=== PATIENT | female | born 1965 | race Caucasian/White ===

== ENCOUNTER 2024-06-30 18:35 | Inpatient (IN) ==
[~2024-06-30 18:35] MED LIST: MAGNESIUM SULFATE / D5W 1 GM/100 ML BAG IV SCH
--- NOTE | 2024-06-30 19:23 | Emergency Department Note ---
Impression & Plan Hypoxia, CHF (congestive heart failure), Rhinovirus infection, Pulmonary fibrosis, Wheezing, Pedal edema, Hypomagnesemia ED Provider Note NAME: SUJATA PINTO AGE: 58 SEX: F : 1965 ARRIVES VIA: Walk-In INFORMANT: [Patient] ED PROVIDER(S): [Eran Landis MD] CHIEF COMPLAINT: Chest pain, short of breath HISTORY OF PRESENT ILLNESS: The patient is a 58-year-old female with pulmonary fibrosis. She states that she was admitted to [facility] in early May. Really since discharge, she has noticed increasing dyspnea but in the last few days, she has been quite short of breath especially with any exertion. She does wear 3 L of oxygen at all times. The patient states that she has noticed some left-sided chest pain which seems to come and go. The pain is not exertional, it is not pleuritic. It is there sometimes, sometimes not. The patient has in addition noted some increasing pedal edema, this has been increasing for about a month. Because of the dyspnea, her chest pain, the edema, she presents for evaluation. The patient has not had any fever. There have been no sick contacts. She does have a nebulizer machine at home but she states, she is not sure it is working properly. PMHx/PSHx/Social Hx: See Below PHYSICAL EXAM: GENERAL: Patient is in no acute distress. HEENT: No acute trauma, normocephalic atraumatic, mucous membranes moist, no nasal congestion. NECK: No stridor, no adenopathy, no meningismus, trachea is midline. LUNGS: Wheezing bilaterally with diminished breath sounds bilaterally. No respiratory distress. Chest: Tender to the left anterior mid chest wall just beneath the breast. HEART: Without murmurs gallops or rubs, regular rate and rhythm. ABDOMEN: Soft, nontender, no peritonitis. EXTREMITIES: No cyanosis, full range of motion of all the joints without pain or difficulty. Mild bilateral pedal edema. NEUROLOGIC: Oriented x 3, no acute motor or sensory deficits, no focal weakness. SKIN: No jaundice, no diaphoresis. DIFFERENTIAL DIAGNOSIS: Exacerbation of COPD, CHF, pneumonia, viral illness, bronchitis, renal or liver failure, AL, PE, among others. EMERGENCY DEPARTMENT PROCEDURES: MEDICAL DECISION MAKING: There is no leukocytosis or concerning anemia. There is a normal platelet count. INR is somewhat elevated at 1.3. VBG shows a very subtle acidosis and some mild CO2 retention. No renal failure. Magnesium was low at 1.6. No concerning liver enzyme elevation. ECG shows a normal sinus rhythm, no obvious ischemia. Cardiac enzyme testing is slightly elevated, this elevation could be secondary to mismatch or potentially cardiac injury. Chest x-ray shows what appears to be some pulmonary congestion and CHF. BNP was elevated at over 1800, consistent with fluid overload. Respiratory bio fire was positive for rhinovirus. Chest CT did not show PE. Chronic lung findings were noted. Pneumonia or fluid overload was suspected. On exam, the patient was wheezing and was hypoxic despite O2 supplementation. The patient was eventually placed on BiPAP to help her breathing. She was given IV magnesium, IV Solu-Medrol, IV Zofran. She was given IV Lasix and 2 DuoNebs. Patient has diagnosed lung disease. Now, she appears to be fluid overloaded. She has rhinovirus. The fluid, the viral infection, has flared her lung disease and she has become hypoxic and short of breath. She requires a hospital stay. I spoke with the patient and case management rn. The on-call hospitalist was consulted. Of note, patient does appear improved after the treatment provided here in the ED. She understands the need for a hospital stay. Prior/Outside records/notes reviewed: None ECG per my interpretation: Indication was chest pain and dyspnea. The ECG shows a normal sinus rhythm with a rate of 85. There is no acute ST elevation, no PVCs. The QTc is 447. Continuous Cardiac Monitoring per my interpretation: An order was placed for continuous cardiac monitoring. The monitor shows a rate of 89 with normal sinus rhythm. Imaging/x-ray results per my interpretation: Chest x-ray shows potential pulmonary fibrosis versus some pulmonary fluid/congestion. There is atelectasis/potential infiltrate both lower lobes. No old films to use for comparison. Chronic Medical/Social conditions affecting care: Chronic O2 use, history of pulmonary fibrosis. Recent hospitalization. Care/Management discussed with: Case management, the on-call hospitalist. Level of care consideration(s): After review of the information above and other included data: --I believe the patient requires escalation of care to admission Critical Care Note: I have personally spent 54 minutes of critical care time in the direct management of this patient. This includes bedside care, interpretation of diagnostic studies, and testing, discussion with consultants, patient, and family members, and other required patient management activities. This 54 minutes is in excess of all separately billable procedures. DISPOSITION: Admission Past Med/Surg History Problem List (Updated 06/30/24 @ 22:34 by Eran Landis MD) Hypomagnesemia (Acute) Pedal edema (Acute) Wheezing (Acute) Pulmonary fibrosis (Acute) Rhinovirus infection (Acute) CHF (congestive heart failure) (Acute) Hypoxia (Acute) Medical History Pulmonary fibrosis Social History Smoking Status: Former smoker Preferred Language: [place] Feels Safe at Home: Yes Results & Data (ED) Vital Signs Vital Signs - 24 hr 06/30/24 18:35 06/30/24 18:35 06/30/24 18:48 Temperature 35.1 C L Temperature Source Oral Pulse Rate 92 H Pulse Rate [Apical] Respiratory Rate 22 Respiratory Effort / Characteristics Spontaneous Spontaneous Respiratory Depth Normal Normal Respiratory Pattern Regular Blood Pressure 150/91 H Blood Pressure [Right Arm] Blood Pressure Mean 110 Blood Pressure Mean [Right Arm] Pulse Oximetry 86 L 86 L Oxygen Delivery Method Nasal Cannula Room Air Nasal Cannula Nasal Cannula Oxygen Flow Rate 3 3 3 Fraction of Inspired Oxygen Sepsis Recent Fever Within 48 Hours No Sepsis New/Unexplained Change in Mental Status N/A Sepsis Action Taken by Nursing Physician Notified Oxygen Flow Rate - Titration 5 Pulse Oximetry Post Tiitration 89 L 06/30/24 18:55 06/30/24 19:00 06/30/24 19:01 Temperature Temperature Source Pulse Rate 89 Pulse Rate [Apical] 83 Respiratory Rate 18 Respiratory Effort / Characteristics Non-Labored Spontaneous Respiratory Depth Normal Respiratory Pattern Regular Blood Pressure Blood Pressure [Right Arm] 143/103 H Blood Pressure Mean Blood Pressure Mean [Right Arm] 116 Pulse Oximetry 89 L 90 Oxygen Delivery Method Nasal Cannula Nasal Cannula Oxygen Flow Rate 5 5 Fraction of Inspired Oxygen Sepsis Recent Fever Within 48 Hours Sepsis New/Unexplained Change in Mental Status Sepsis Action Taken by Nursing Oxygen Flow Rate - Titration Pulse Oximetry Post Tiitration 06/30/24 21:00 06/30/24 21:24 06/30/24 21:33 Temperature Temperature Source Pulse Rate 86 Pulse Rate [Apical] 88 90 Respiratory Rate 20 22 18 Respiratory Effort / Characteristics Spontaneous Non-Labored Non-Labored Spontaneous Respiratory Depth Normal Normal Respiratory Pattern Regular Regular Blood Pressure Blood Pressure [Right Arm] 157/99 H Blood Pressure Mean Blood Pressure Mean [Right Arm] 118 Pulse Oximetry 86 L 85 L 95 Oxygen Delivery Method Nasal Cannula Nasal Cannula Oxygen Flow Rate 5 5 Fraction of Inspired Oxygen 50 Sepsis Recent Fever Within 48 Hours Sepsis New/Unexplained Change in Mental Status Sepsis Action Taken by Nursing Oxygen Flow Rate - Titration Pulse Oximetry Post Tiitration 06/30/24 21:41 Temperature Temperature Source Pulse Rate Pulse Rate [Apical] Respiratory Rate Respiratory Effort / Characteristics Respiratory Depth Respiratory Pattern Blood Pressure Blood Pressure [Right Arm] Blood Pressure Mean Blood Pressure Mean [Right Arm] Pulse Oximetry 86 L Oxygen Delivery Method BiPAP Oxygen Flow Rate 5 Fraction of Inspired Oxygen Sepsis Recent Fever Within 48 Hours Sepsis New/Unexplained Change in Mental Status Sepsis Action Taken by Nursing Oxygen Flow Rate - Titration Pulse Oximetry Post Tiitration 96 Home Medications Current Medication List: was personally reviewed by me Laboratory Data Attestation: I reviewed the patient's lab results. 06/30/24 18:55 06/30/24 18:55 Lab Results 06/30/24 06/30/24 06/30/24 Range/Units 18:55 18:56 19:17 WBC 6.74 (4.8-10.8) K/ul RBC 4.76 (4.20-5.40) M/uL Hgb 14.5 (12.0-16.0) g/dl Hct 44.0 (37.0-47.0) % MCV 92.4 (80.0-100.0) fL MCH 30.5 (25.0-34.0) pg MCHC 33.0 (32.0-36.0) g/dL RDW Std Deviation 57.6 H (36.4-46.3) fL RDW Coeff of Reji 17.0 H (11.5-14.5) % Plt Count 146 (130-400) K/uL MPV 11.2 (9.4-12.4) fL Immature Gran % (Auto) 0.1 % Neut % (Auto) 66.3 % Lymph % (Auto) 23.3 % Davidson % (Auto) 8.6 % Eos % (Auto) 1.3 % Baso % (Auto) 0.4 % Neut # (Auto) 4.46 (1.40-6.50) K/uL Lymph # (Auto) 1.57 (1.20-3.40) K/uL Davidson # (Auto) 0.58 (0.11-0.59) K/uL Eos # (Auto) 0.09 (0.00-0.50) K/uL Baso # (Auto) 0.03 (0.00-0.20) K/uL Immature Gran # (Auto) 0.01 (0.01-0.20) K/uL PT 13.4 H (9.0-12.0) Seconds INR 1.3 H (0.9-1.1) APTT 26 (21-31) Seconds PTT Ratio 1.0 VBG pH (7.36-7.41) VBG pCO2 (38-50) mmHg VBG pO2 mmHg VBG HCO3 mmol/L VBG O2 Saturation % VBG Base Excess mEq/L Sodium 134 L (136-145) mmol/L Potassium 3.6 (3.5-5.1) mmol/L Chloride 97 L (98-107) mmol/L Carbon Dioxide 29 (21-32) mmol/L Anion Gap 8 (3-11) BUN 12 (6-23) mg/dl Creatinine 0.96 (0.6-1.2) mg/dl Est Cr Clr Drug Dosing Not Reportable eGFR 68.58 BUN/Creatinine Ratio 12.5 (10-20) Glucose 124 H (70-99(Fasting)) mg/dl Calcium 9.3 (8.6-10.3) mg/dl Magnesium 1.6 L (1.7-2.4) mg/dl Total Bilirubin 1.0 (0.2-1.0) mg/dl AST 26 (13-39) U/L ALT 11 (7-52) U/L Alkaline Phosphatase 47 (34-104) U/L Troponin I High Sens 20.6 H (0-14) pg/ml B-Natriuretic Peptide 1866 H (0-100) pg/ml Total Protein 7.0 (6.0-8.3) gm/dl Albumin 4.1 (3.4-5.0) gm/dl Globulin 2.9 (2.5-4.0) gm/dl Albumin/Globulin Ratio 1.4 (0.9-2) Adenovirus (PCR) Not Detected (NotDetected) B. pertussis DNA (PCR) Not Detected (NotDetected) B.parapertussis DNA PCR Not Detected (NotDetected) C. pneumoniae DNA (PCR) Not Detected (NotDetected) Coronavirus OC43 (PCR) Not Detected (NotDetected) Coronavirus HKU1 (PCR) Not Detected (NotDetected) Coronavirus 229E (PCR) Not Detected (NotDetected) SARS-CoV-2 (PCR) Not Detected (NotDetected) Coronavirus NL63 (PCR) Not Detected (NotDetected) Human Metapneumovir PCR Not Detected (NotDetected) Influenza Type A (PCR) Not Detected (NotDetected) Influenza Type B (PCR) Not Detected (NotDetected) M. pneumoniae (PCR) Not Detected (NotDetected) Parainfluenza 1 (PCR) Not Detected (NotDetected) Parainfluenza 2 (PCR) Not Detected (NotDetected) Parainfluenza 3 (PCR) Not Detected (NotDetected) Parainfluenza 4 (PCR) Not Detected (NotDetected) RSV (PCR) Not Detected (NotDetected) Entero/Rhino (PCR) DETECTED A (NotDetected) 06/30/24 06/30/24 Range/Units 19:26 21:25 WBC (4.8-10.8) K/ul RBC (4.20-5.40) M/uL Hgb (12.0-16.0) g/dl Hct (37.0-47.0) % MCV (80.0-100.0) fL MCH (25.0-34.0) pg MCHC (32.0-36.0) g/dL RDW Std Deviation (36.4-46.3) fL RDW Coeff of Reji (11.5-14.5) % Plt Count (130-400) K/uL MPV (9.4-12.4) fL Immature Gran % (Auto) % Neut % (Auto) % Lymph % (Auto) % Davidson % (Auto) % Eos % (Auto) % Baso % (Auto) % Neut # (Auto) (1.40-6.50) K/uL Lymph # (Auto) (1.20-3.40) K/uL Davidson # (Auto) (0.11-0.59) K/uL Eos # (Auto) (0.00-0.50) K/uL Baso # (Auto) (0.00-0.20) K/uL Immature Gran # (Auto) (0.01-0.20) K/uL PT (9.0-12.0) Seconds INR (0.9-1.1) APTT (21-31) Seconds PTT Ratio VBG pH 7.31 L (7.36-7.41) VBG pCO2 58 H (38-50) mmHg VBG pO2 27 mmHg VBG HCO3 29 mmol/L VBG O2 Saturation < 60.0 % VBG Base Excess 1.6 mEq/L Sodium (136-145) mmol/L Potassium (3.5-5.1) mmol/L Chloride (98-107) mmol/L Carbon Dioxide (21-32) mmol/L Anion Gap (3-11) BUN (6-23) mg/dl Creatinine (0.6-1.2) mg/dl Est Cr Clr Drug Dosing eGFR BUN/Creatinine Ratio (10-20) Glucose (70-99(Fasting)) mg/dl Calcium (8.6-10.3) mg/dl Magnesium (1.7-2.4) mg/dl Total Bilirubin (0.2-1.0) mg/dl AST (13-39) U/L ALT (7-52) U/L Alkaline Phosphatase (34-104) U/L Troponin I High Sens 18.4 H (0-14) pg/ml B-Natriuretic Peptide (0-100) pg/ml Total Protein (6.0-8.3) gm/dl Albumin (3.4-5.0) gm/dl Globulin (2.5-4.0) gm/dl Albumin/Globulin Ratio (0.9-2) Adenovirus (PCR) (NotDetected) B. pertussis DNA (PCR) (NotDetected) B.parapertussis DNA PCR (NotDetected) C. pneumoniae DNA (PCR) (NotDetected) Coronavirus OC43 (PCR) (NotDetected) Coronavirus HKU1 (PCR) (NotDetected) Coronavirus 229E (PCR) (NotDetected) SARS-CoV-2 (PCR) (NotDetected) Coronavirus NL63 (PCR) (NotDetected) Human Metapneumovir PCR (NotDetected) Influenza Type A (PCR) (NotDetected) Influenza Type B (PCR) (NotDetected) M. pneumoniae (PCR) (NotDetected) Parainfluenza 1 (PCR) (NotDetected) Parainfluenza 2 (PCR) (NotDetected) Parainfluenza 3 (PCR) (NotDetected) Parainfluenza 4 (PCR) (NotDetected) RSV (PCR) (NotDetected) Entero/Rhino (PCR) (NotDetected) Administered Medications Discontinued Medications Albuterol (Albut/Ipratrop 3mg/0.5mg Neb 3 Ml Vial) 3 ml NEB NOW STA; Protocol Stop: 06/30/24 19:13 Last Admin: 06/30/24 19:34 Dose: 3 ml Documented By: GENEVIEVE Albuterol (Albut/Ipratrop 3mg/0.5mg Neb 3 Ml Vial) 3 ml NEB NOW STA; Protocol Stop: 06/30/24 21:22 Last Admin: 06/30/24 21:22 Dose: 3 ml Documented By: [id number] Furosemide (Furosemide 40 Mg/4 Ml Vial) 40 mg IV ONE ONE Stop: 06/30/24 20:38 Last Admin: 06/30/24 21:08 Dose: 40 mg Documented By: GENEVIEVE Magnesium Sulfate/Dextrose (Magnesium Sulfate / D5w) 1 gm in 100 mls @ 100 mls/hr IV NOW STA Stop: 06/30/24 21:03 Last Infusion: 06/30/24 21:11 Dose: Infused Documented By: Admin: 06/30/24 20:11 Dose: 100 mls/hr Documented By: GENEVIEVE Ioversol (Optiray 320 125ml) 119 ml IV ONCE ONE Stop: 06/30/24 20:19 Last Admin: 06/30/24 20:18 Dose: 119 ml Documented By: KINSEY Methylprednisolone (Methylprednisolone 125 Mg/2 Ml Vial) 60 mg IV NOW STA Stop: 06/30/24 19:13 Last Admin: 06/30/24 19:33 Dose: 60 mg Documented By: GENEVIEVE Ondansetron HCl (Ondansetron Inj 2 Mg/Ml 2 Ml Vial) 4 mg IV NOW STA Stop: 06/30/24 19:47 Last Admin: 06/30/24 19:48 Dose: 4 mg Documented By: GENEVIEVE Imaging Data Radiologist's Impression: Chest CTA 06/30/24 20:08 Exam(s): CTA CHEST IV Amt: optiray 320 119ml EXAM: CT Angiography Chest With Intravenous Contrast CLINICAL HISTORY: PE. TECHNIQUE: Axial computed tomographic angiography images of the chest with intravenous contrast. MIPS images were created and reviewed. CTDI is 22 mGy and DLP is 735 mGy-cm. Automated exposure control was utilized for the study. A dose lowering technique was utilized adhering to the principles of ALARA. MIP reconstructed images were created and reviewed. COMPARISON: No relevant prior studies available. FINDINGS: Pulmonary arteries: There is dilation of the pulmonary arteries. The main pulmonary artery measures 4.0 cm. No pulmonary embolus. Aorta: Mild atherosclerosis. No thoracic aortic aneurysm. Hepatic veins: Reflux of contrast into the hepatic veins is concerning for right heart failure. Lungs: Emphysema is noted. Interseptal thickening and bronchiectasis is concerning for interstitial lung disease. No mass. No consolidation. Pleural space: Unremarkable. No significant effusion. No pneumothorax. Heart: Coronary artery calcifications are present. Bones/joints: There are degenerative changes of the spine. No acute fracture. Soft tissues: Unremarkable. Lymph nodes: Hilar lymphadenopathy measures up to 1.4 cm in short axis. Gallbladder and bile ducts: Question pericholecystic fluid. IMPRESSION: 1. No pulmonary embolus. 2. Emphysema is noted. Emphysema is an independent risk factor for lung cancer. Recommend evaluation for low dose lung cancer screening protocol. 3. Interseptal thickening and bronchiectasis is concerning for interstitial lung disease. Cannot exclude superimposed pulmonary edema or atypical infection especially of the right upper lobe. 4. There is dilation of the pulmonary arteries. This is concerning for pulmonary artery hypertension. 5. Hilar lymphadenopathy measures up to 1.4 cm in short axis. This could be infectious, inflammatory or neoplastic. 6. Reflux of contrast into the hepatic veins is concerning for right heart failure. 7. Question pericholecystic fluid. Consider further evaluation with gallbladder ultrasound. Electronically signed by: Abigail Juares MD 06/30/24 21:14 PM Discharge Plan Visit Data Chief Complaint: Chest Pain Stated Complaint: CHEST PAIN, SOB, LEG SWELLING,VOMITING ED Provider: Eran Landis Discharge Problem: Hypoxia, CHF (congestive heart failure), Rhinovirus infection, Pulmonary fibrosis, Wheezing, Pedal edema, Hypomagnesemia Patient Disposition: Admitted As Inpatient Condition: Serious Forms Stand Alone Forms: [facility] Referrals Referrals: Lavon Waldron MD [Outside Practitioners] - Discharge Problem: CHF (congestive heart failure) Qualifiers: Heart failure type: unspecified Heart failure chronicity: acute Qualified Code(s): I50.9 - Heart failure, unspecified
[2024-06-30] MEDS: methylPREDNISolone 125 MG/2 ML VIAL IV STA (19:33)
[2024-06-30] MEDS: ALBUT/IPRATROP 3MG/0.5MG NEB 3 ML VIAL NEB STA ×2 (19:34→21:22)
[2024-06-30 19:36] LABS: Base Excess VBG 1.6 mEq/L; HCO3 VBG 29 mmol/L; Oxygen Saturation VBG < 60.0 %; PCO2 VBG 58 mmHg (38-50); PO2 VBG 27 mmHg; pH VBG 7.31 (7.36-7.41)
[2024-06-30] MEDS: ONDANSETRON INJ 2 MG/ML 2 ML VIAL IV STA (19:48)
[2024-06-30 19:54] LABS: Basophils # (auto) 0.03 K/uL (0.00-0.20); Basophils % (auto) 0.4 %; Eosinophils # (auto) 0.09 K/uL (0.00-0.50); Eosinophils % (auto) 1.3 %; Hemoglobin 14.5 g/dl (12.0-16.0); Immature Granulocytes # (auto) 0.01 K/uL (0.01-0.20); Immature Granulocytes % (auto) 0.1 %; Lymphocytes # (auto) 1.57 K/uL (1.20-3.40); Lymphocytes % (auto) 23.3 %; Mean Corpuscular Hemoglobin 30.5 pg (25.0-34.0); Mean Corpuscular Volume 92.4 fL (80.0-100.0); Mean Platelet Volume 11.2 fL (9.4-12.4); Monocytes # (auto) 0.58 K/uL (0.11-0.59); Monocytes % (auto) 8.6 %; Neutrophils # (auto) 4.46 K/uL (1.40-6.50); Neutrophils % (auto) 66.3 %; Platelet Count 146 K/uL (130-400); RDW Standard Deviation 57.6 fL (36.4-46.3); Red Blood Count 4.76 M/uL (4.20-5.40); White Blood Count 6.74 K/ul (4.8-10.8)
[2024-06-30 20:01] LABS: Alanine Aminotransferase 11 U/L (7-52); Albumin Globulin Ratio 1.4 (0.9-2); Albumin Level 4.1 gm/dl (3.4-5.0); Alkaline Phosphatase 47 U/L (34-104); Anion Gap 8 (3-11); Aspartate Aminotransferase 26 U/L (13-39); BUN Creatinine Ratio 12.5 (10-20); Blood Urea Nitrogen 12 mg/dl (6-23); Calcium 9.3 mg/dl (8.6-10.3); Carbon Dioxide 29 mmol/L (21-32); Chloride 97 mmol/L (98-107); Globulin 2.9 gm/dl (2.5-4.0); Glucose 124 mg/dl (70-99(Fasting)); Magnesium 1.6 mg/dl (1.7-2.4); Potassium 3.6 mmol/L (3.5-5.1); Sodium 134 mmol/L (136-145)
[2024-06-30 20:07] LABS: Troponin I High Sensitivity 20.6 pg/ml (0-14)
[2024-06-30 20:10] LABS: INR 1.3 (0.9-1.1); Partial Thromboplastin Time 26 Seconds (21-31); Prothrombin Time 13.4 Seconds (9.0-12.0)
[2024-06-30] MEDS: MAGNESIUM SULFATE / D5W 1 GM/100 ML BAG IV STA (20:11)
[2024-06-30] MEDS: OPTIRAY 320 125ml IV ONE (20:18)
[2024-06-30 20:34] LABS: Adenovirus PCR Not Detected (NotDetected); Bordetella parapertussis PCR Not Detected (NotDetected); Bordetella pertussis PCR Not Detected (NotDetected); Chlamydia pneumoniae PCR Not Detected (NotDetected); Coronavirus 229E PCR Not Detected (NotDetected); Coronavirus CoV-2 (COVID19)PCR Not Detected (NotDetected); Coronavirus HKU1 PCR Not Detected (NotDetected); Coronavirus NL63 PCR Not Detected (NotDetected); Coronavirus OC43PCR Not Detected (NotDetected); Human Metapneumovirus PCR Not Detected (NotDetected); Influenza A PCR Not Detected (NotDetected); Influenza B PCR Not Detected (NotDetected); Mycoplasma pneumoniae PCR Not Detected (NotDetected); Parainfluenza Virus 1 PCR Not Detected (NotDetected); Parainfluenza Virus 2 PCR Not Detected (NotDetected); Parainfluenza Virus 3 PCR Not Detected (NotDetected); Parainfluenza Virus 4 PCR Not Detected (NotDetected); Respiratory Syncytial VirusPCR Not Detected (NotDetected); Rhinovirus/Enterovirus PCR DETECTED (NotDetected)
[2024-06-30] MEDS: FUROSEMIDE 40 MG/4 ML VIAL IV ONE (21:08)
--- NOTE | 2024-06-30 21:16 | CT Scan Report ---
Exam(s): CTA CHEST IV Amt: optiray 320 119ml EXAM: CT Angiography Chest With Intravenous Contrast CLINICAL HISTORY: PE. TECHNIQUE: Axial computed tomographic angiography images of the chest with intravenous contrast. MIPS images were created and reviewed. CTDI is 22 mGy and DLP is 735 mGy-cm. Automated exposure control was utilized for the study. A dose lowering technique was utilized adhering to the principles of ALARA. MIP reconstructed images were created and reviewed. COMPARISON: No relevant prior studies available. FINDINGS: Pulmonary arteries: There is dilation of the pulmonary arteries. The main pulmonary artery measures 4.0 cm. No pulmonary embolus. Aorta: Mild atherosclerosis. No thoracic aortic aneurysm. Hepatic veins: Reflux of contrast into the hepatic veins is concerning for right heart failure. Lungs: Emphysema is noted. Interseptal thickening and bronchiectasis is concerning for interstitial lung disease. No mass. No consolidation. Pleural space: Unremarkable. No significant effusion. No pneumothorax. Heart: Coronary artery calcifications are present. Bones/joints: There are degenerative changes of the spine. No acute fracture. Soft tissues: Unremarkable. Lymph nodes: Hilar lymphadenopathy measures up to 1.4 cm in short axis. Gallbladder and bile ducts: Question pericholecystic fluid. IMPRESSION: 1. No pulmonary embolus. 2. Emphysema is noted. Emphysema is an independent risk factor for lung cancer. Recommend evaluation for low dose lung cancer screening protocol. 3. Interseptal thickening and bronchiectasis is concerning for interstitial lung disease. Cannot exclude superimposed pulmonary edema or atypical infection especially of the right upper lobe. 4. There is dilation of the pulmonary arteries. This is concerning for pulmonary artery hypertension. 5. Hilar lymphadenopathy measures up to 1.4 cm in short axis. This could be infectious, inflammatory or neoplastic. 6. Reflux of contrast into the hepatic veins is concerning for right heart failure. 7. Question pericholecystic fluid. Consider further evaluation with gallbladder ultrasound. Electronically signed by: Abigail Juares MD 06/30/24 21:14 PM
--- NOTE | 2024-06-30 22:19 | History & Physical Report ---
Date of Service June 30, 2024 Assessment & Plan (1) Acute respiratory failure with hypoxia: (2) Hypomagnesemia: (3) Pulmonary fibrosis: (4) Rhinovirus infection: (5) COPD exacerbation: (6) CHF (congestive heart failure): Plan The patient is a 58-year-old female with a past medical history including hypertension, peripheral neuropathy, CHF, rheumatoid arthritis, COPD, pulmonary fibrosis, GERD, obstructive sleep apnea, muscle spasm, and anxiety. She was hospitalized in May in [facility], due to pulmonary issues. She reports that over the past several days she has had worsening shortness of breath, lower extremity edema, increased need for oxygen and presents to the ED at [facility] for assessment. #Acute respiratory failure with hypoxia- Combination of COPD exacerbation, rhinovirus infection and CHF exacerbation Patient initially on nasal cannula oxygen, required change to BiPAP for improved oxygenation #COPD exacerbation/rhinovirus infection/pulmonary fibrosis- Was given methylprednisolone 60 mg IV from the ED, continue methylprednisolone 40 mg IV every 8 hours Azithromycin 500 mg IV daily Mucinex 60 mg p.o. every 12 hours Duonebs every 4 hours while awake and every 2 hours when necessary. Continue [facility] consult to Dr. Avalos #CHF exacerbation- The patient will be admitted to telemetry for serial cardiac enzymes, serial EKG's, cardiac rhythm monitoring and a 2-D echocardiogram with Dopplers. Given furosemide 40 mg IV in the ED Continue furosemide 40 mg IV twice daily #Chronic medical issues: Rheumatoid arthritis- On Enbrel as an outpatient, ibuprofen, modafinil #Chronic pain- Previously had been on narcotic medications Continue Suboxone 3 times daily, methocarbamol, gabapentin Request for patient records to [facility] has been sent History of Present Illness Chief Complaint: Patient presents to the emergency department with complaint of shortness of breath over the past several weeks, requiring hospitalization at [facility] in early May, and now feels that she is worsening over the past several days. Primary Care Provider: Narciso Castaneda DO The patient is a 58-year-old female with a past medical history including hypertension, peripheral neuropathy, CHF, rheumatoid arthritis, COPD, pulmonary fibrosis, GERD, obstructive sleep apnea, muscle spasm, and anxiety. She was hospitalized in May in [facility], due to pulmonary issues. She reports that over the past several days she has had worsening shortness of breath, lower extremity edema, increased need for oxygen and presents to the ED at [facility] for assessment. Allergies Allergy/AdvReac Type Severity Reaction Status Date / Time No Known Allergies Allergy Unverified 07/01/24 01:38 Home Medications Medication Instructions Recorded Confirmed Type alendronate 70 mg tablet 70 mg PO WK 06/30/24 06/30/24 History buspirone 7.5 mg tablet 7.5 mg PO BID 06/30/24 06/30/24 History ergocalciferol (vitamin D2) 1,250 1,250 unit PO DAILY 06/30/24 06/30/24 History mcg (50,000 unit) capsule etanercept 50 mg/mL (1 mL) 50 mg subcut WK 06/30/24 06/30/24 History subcutaneous pen injector (Enbrel SureClick) fluticasone fur. 100 mcg-umeclid 1 inh inhalation DAILY 06/30/24 06/30/24 History 62.5 mcg-vilant 25 mcg inhalat.powder (Trelegy Ellipta) ibuprofen 800 mg tablet 800 mg PO Q8H PRN Pain 06/30/24 06/30/24 History ipratropium 0.5 mg-albuterol 3 mg 3 ml inhalation Q4H PRN breath 06/30/24 06/30/24 History (2.5 mg base)/3 mL nebulization soln leflunomide 20 mg tablet 20 mg PO DAILY 06/30/24 06/30/24 History lidocaine-prilocaine 2.5 %-2.5 % 1 applic topical BID 06/30/24 06/30/24 History topical cream losartan 25 mg tablet 25 mg PO DAILY 06/30/24 06/30/24 History methocarbamol 750 mg tablet 750 mg PO TID 06/30/24 06/30/24 History modafinil 200 mg tablet 200 mg PO QAM 06/30/24 06/30/24 History nicotine 14 mg/24 hr daily 1 patch transdermal DAILY 06/30/24 06/30/24 History transdermal patch nintedanib 150 mg capsule (Ofev) 150 mg PO BID 06/30/24 06/30/24 History omeprazole 40 mg capsule,delayed 40 mg PO DAILY 06/30/24 06/30/24 History release sennosides 8.6 mg-docusate sodium 2 tab PO DAILY PRN therapy 06/30/24 06/30/24 History 50 mg tablet (Senexon-S) silver sulfadiazine 1 % topical 1 applic topical DAILY 06/30/24 06/30/24 History cream Past Med/Surg History Problem List (Updated 07/01/24 @ 05:13 by Jimmy Shah MD) COPD exacerbation Acute respiratory failure with hypoxia Hypomagnesemia (Acute) Pedal edema (Acute) Wheezing (Acute) Pulmonary fibrosis (Acute) Rhinovirus infection (Acute) CHF (congestive heart failure) (Acute) Hypoxia (Acute) Medical History Pulmonary fibrosis Social History Smoking Status: Never smoker Second Hand Exposure: No; Do You Dip or Chew Tobacco: No; Hx Alcohol Use: No Hx Substance Use: No Preferred Language: Hong Konger Communication Ability: Effective 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 Beliefs That Will Affect Care: None Current Living Situation: Alone Other Information That Helps Us Care for You: No Feels Safe at Home: Yes Safety Concerns: Feels Safe At This Time Assistive Devices: CPAP Review of Systems Review of Systems: The patient denies chest pain, palpitations, sore throat, fevers, chills, sweats, weight change, fatigue, nausea, vomiting, diarrhea , constipation, abdominal pain, pelvic pain, blood in urine or stool, dysuria, urinary frequency or urgency, lightheadedness, dizziness, headache, memory loss, loss of consciousness, rash, abnormal bruising or bleeding, imbalance, focal weakness, numbness or tingling in arms or legs, generalized arthralgias or myalgias, back or neck pain, or night sweats. The review of systems is otherwise negative other than for that already noted above, and at least 10 systems have been reviewed. Physical Exam Physical Exam: The patient is awake, alert and oriented 3, well developed and well nourished, normocephalic and atraumatic, lying in bed and in no acute distress. HEENT--PERRL, EOMI, mucous membranes and oropharynx Neck--supple. No JVD. No bruits. Thyroid normal, trachea midline, no adenopathy. Heart--normal S1 and S2. No murmurs, rubs or gallops. Lungs--crackles at the bases, with coarse breath sounds bilaterally. No respiratory distress, no accessory muscle use. Abdomen--normal bowel sounds and soft. Nontender. Nondistended, no hernias or masses, no organomegaly. Extremities--no cyanosis or clubbing. 2+ bilateral pretibial pitting edema. There are good distal pulses b/l. Dermatologic--normal skin turgor, normal color, no abnormal lymph nodes, no rash. Neurologic--cranial nerves II through XII grossly intact. Rheumatologic--normal range of motion. Psychiatric--normal affect. Results & Data Results & Data Vital Signs (Past 12 Hours) Vital Signs Temp Pulse Pulse Resp BP BP Pulse Ox 06/30/24 21:41 86 L 06/30/24 21:33 86 18 95 06/30/24 21:24 90 22 85 L 06/30/24 21:00 88 20 157/99 H 86 L 06/30/24 19:01 89 06/30/24 19:00 83 18 143/103 H 90 06/30/24 18:55 89 L 06/30/24 18:48 35.1 C L 92 H 22 150/91 H 86 L 06/30/24 18:35 86 L 06/30/24 18:35 O2 Del Method O2 Flow Rate FiO2 06/30/24 21:41 BiPAP 5 06/30/24 21:33 50 06/30/24 21:24 Nasal Cannula 5 06/30/24 21:00 Nasal Cannula 5 06/30/24 19:01 06/30/24 19:00 Nasal Cannula 5 06/30/24 18:55 Nasal Cannula 5 06/30/24 18:48 Nasal Cannula 3 06/30/24 18:35 Room Air, Nasal Cannula 3 06/30/24 18:35 Nasal Cannula 3 Laboratory Results Laboratory Results WBC 6.74 K/ul (4.8-10.8) 06/30/24 18:55 RBC 4.76 M/uL (4.20-5.40) 06/30/24 18:55 Hgb 14.5 g/dl (12.0-16.0) 06/30/24 18:55 Hct 44.0 % (37.0-47.0) 06/30/24 18:55 MCV 92.4 fL (80.0-100.0) 06/30/24 18:55 MCH 30.5 pg (25.0-34.0) 06/30/24 18:55 MCHC 33.0 g/dL (32.0-36.0) 06/30/24 18:55 RDW Std Deviation 57.6 fL (36.4-46.3) H 06/30/24 18:55 RDW Coeff of Reji 17.0 % (11.5-14.5) H 06/30/24 18:55 Plt Count 146 K/uL (130-400) 06/30/24 18:55 MPV 11.2 fL (9.4-12.4) 06/30/24 18:55 Immature Gran % (Auto) 0.1 % 06/30/24 18:55 Neut % (Auto) 66.3 % 06/30/24 18:55 Lymph % (Auto) 23.3 % 06/30/24 18:55 Coal % (Auto) 8.6 % 06/30/24 18:55 Eos % (Auto) 1.3 % 06/30/24 18:55 Baso % (Auto) 0.4 % 06/30/24 18:55 Neut # (Auto) 4.46 K/uL (1.40-6.50) 06/30/24 18:55 Lymph # (Auto) 1.57 K/uL (1.20-3.40) 06/30/24 18:55 Coal # (Auto) 0.58 K/uL (0.11-0.59) 06/30/24 18:55 Eos # (Auto) 0.09 K/uL (0.00-0.50) 06/30/24 18:55 Baso # (Auto) 0.03 K/uL (0.00-0.20) 06/30/24 18:55 Immature Gran # (Auto) 0.01 K/uL (0.01-0.20) 06/30/24 18:55 PT 13.4 Seconds (9.0-12.0) H 06/30/24 18:56 INR 1.3 (0.9-1.1) H 06/30/24 18:56 APTT 26 Seconds (21-31) 06/30/24 18:56 PTT Ratio 1.0 06/30/24 18:56 VBG pH 7.31 (7.36-7.41) L 06/30/24 19:26 VBG pCO2 58 mmHg (38-50) H 06/30/24 19:26 VBG pO2 27 mmHg 06/30/24 19: VBG HCO3 29 mmol/L 06/30/24 19: VBG O2 Saturation < 60.0 % 06/30/24 19: VBG Base Excess 1.6 mEq/L 06/30/24 19:26 Sodium 134 mmol/L (136-145) L 06/30/24 18:55 Potassium 3.6 mmol/L (3.5-5.1) 06/30/24 18:55 Chloride 97 mmol/L (98-107) L 06/30/24 18:55 Carbon Dioxide 29 mmol/L (21-32) 06/30/24 18:55 Anion Gap 8 (3-11) 06/30/24 18:55 BUN 12 mg/dl (6-23) 06/30/24 18:55 Creatinine 0.96 mg/dl (0.6-1.2) 06/30/24 18:55 Est Cr Clr Drug Dosing Not Reportable 06/30/24 18:55 eGFR 68.58 06/30/24 18:55 BUN/Creatinine Ratio 12.5 (10-20) 06/30/24 18:55 Glucose 124 mg/dl (70-99(Fasting)) H 06/30/24 18:55 Calcium 9.3 mg/dl (8.6-10.3) 06/30/24 18:55 Magnesium 1.6 mg/dl (1.7-2.4) L 06/30/24 18:55 Total Bilirubin 1.0 mg/dl (0.2-1.0) 06/30/24 18:55 AST 26 U/L (13-39) 06/30/24 18:55 ALT 11 U/L (7-52) 06/30/24 18:55 Alkaline Phosphatase 47 U/L (34-104) 06/30/24 18:55 Troponin I High Sens 18.4 pg/ml (0-14) H 06/30/24 21:25 B-Natriuretic Peptide 1866 pg/ml (0-100) H 06/30/24 18:55 Total Protein 7.0 gm/dl (6.0-8.3) 06/30/24 18:55 Albumin 4.1 gm/dl (3.4-5.0) 06/30/24 18:55 Globulin 2.9 gm/dl (2.5-4.0) 06/30/24 18:55 Albumin/Globulin Ratio 1.4 (0.9-2) 06/30/24 18:55 Urine Color Yellow 06/30/24 23:49 Urine Appearance Clear (Clear) 06/30/24 23:49 Urine pH 5.0 (4.5-7.5) 06/30/24 23:49 Ur Specific [place] 1.011 (1.000-1.030) 06/30/24 23:49 Urine Protein Negative (Negative) 06/30/24 23:49 Urine Glucose (UA) Negative (Negative) 06/30/24 23:49 Urine Ketones Negative (Negative) 06/30/24 23:49 Urine Blood Negative (Negative) 06/30/24 23:49 Urine Nitrite Negative (Negative) 06/30/24 23:49 Urine Bilirubin Negative (Negative) 06/30/24 23:49 Urine Urobilinogen Negative (Negative) 06/30/24 23:49 Ur Leukocyte Esterase Negative (Negative) 06/30/24 23:49 Adenovirus (PCR) Not Detected (NotDetected) 06/30/24 19:17 B. pertussis DNA (PCR) Not Detected (NotDetected) 06/30/24 19:17 B.parapertussis DNA PCR Not Detected (NotDetected) 06/30/24 19:17 C. pneumoniae DNA (PCR) Not Detected (NotDetected) 06/30/24 19:17 Coronavirus OC43 (PCR) Not Detected (NotDetected) 06/30/24 19:17 Coronavirus HKU1 (PCR) Not Detected (NotDetected) 06/30/24 19:17 Coronavirus 229E (PCR) Not Detected (NotDetected) 06/30/24 19:17 SARS-CoV-2 (PCR) Not Detected (NotDetected) 06/30/24 19:17 Coronavirus NL63 (PCR) Not Detected (NotDetected) 06/30/24 19:17 Human Metapneumovir PCR Not Detected (NotDetected) 06/30/24 19:17 Influenza Type A (PCR) Not Detected (NotDetected) 06/30/24 19:17 Influenza Type B (PCR) Not Detected (NotDetected) 06/30/24 19:17 M. pneumoniae (PCR) Not Detected (NotDetected) 06/30/24 19:17 Parainfluenza 1 (PCR) Not Detected (NotDetected) 06/30/24 19:17 Parainfluenza 2 (PCR) Not Detected (NotDetected) 06/30/24 19:17 Parainfluenza 3 (PCR) Not Detected (NotDetected) 06/30/24 19:17 Parainfluenza 4 (PCR) Not Detected (NotDetected) 06/30/24 19:17 RSV (PCR) Not Detected (NotDetected) 06/30/24 19:17 Entero/Rhino (PCR) DETECTED (NotDetected) A 06/30/24 19:17 Impressions Chest X-Ray 06/30/24 18:55 Exam(s): XR CXR 1 VIEW EXAM: XR Chest, 1 View CLINICAL HISTORY: Dyspnea. TECHNIQUE: Frontal view of the chest. COMPARISON: No relevant prior studies available. FINDINGS: Lungs: Bilateral airspace opacities are present. Pleural space: Small bilateral pleural effusions. No pneumothorax. Heart: Upper limits of normal cardiac silhouette. Mediastinum: Unremarkable. Normal mediastinal contour. Bones/joints: There are degenerative changes of the spine. No acute fracture. IMPRESSION: 1. Bilateral airspace opacities may represent pulmonary edema and/or atypical infection. 2. Small bilateral pleural effusions. Electronically signed by: Abigail Juares MD 06/30/24 23:24 PM Venous Doppler Study 06/30/24 19:11 Exam(s): US VENOUS BILATERAL LOWER EXTREMITIES EXAM: US Duplex Bilateral Lower Extremities Veins CLINICAL HISTORY: Swelling. TECHNIQUE: Real-time duplex ultrasound scan of the bilateral lower extremity veins integrating B-mode two-dimensional vascular structure, Doppler spectral analysis, color flow Doppler imaging and compression. COMPARISON: No relevant prior studies available. FINDINGS: Right deep veins: Unremarkable. No Deep vein thrombosis in the right common femoral, femoral, proximal deep femoral or popliteal veins. The veins demonstrate normal color flow, are normally compressible, with normal phasic flow and/or augmentation response. Right superficial veins: Unremarkable. No thrombus in the visualized right great saphenous vein. Left deep veins: Unremarkable. No Deep vein thrombosis in the left common femoral, femoral, proximal deep femoral or popliteal veins. The veins demonstrate normal color flow, are normally compressible, with normal phasic flow and/or augmentation response. Left superficial veins: Unremarkable. No thrombus in the visualized left great saphenous vein. Soft tissues: No acute findings. No popliteal cyst. IMPRESSION: No deep vein thrombosis of either lower extremity. Electronically signed by: Abigail Juares MD 07/01/24 02:15 AM Chest CTA 06/30/24 20:08 Exam(s): CTA CHEST IV Amt: optiray [id number] 119ml EXAM: CT Angiography Chest With Intravenous Contrast CLINICAL HISTORY: PE. TECHNIQUE: Axial computed tomographic angiography images of the chest with intravenous contrast. MIPS images were created and reviewed. CTDI is 22 mGy and DLP is 735 mGy-cm. Automated exposure control was utilized for the study. A dose lowering technique was utilized adhering to the principles of ALARA. MIP reconstructed images were created and reviewed. COMPARISON: No relevant prior studies available. FINDINGS: Pulmonary arteries: There is dilation of the pulmonary arteries. The main pulmonary artery measures 4.0 cm. No pulmonary embolus. Aorta: Mild atherosclerosis. No thoracic aortic aneurysm. Hepatic veins: Reflux of contrast into the hepatic veins is concerning for right heart failure. Lungs: Emphysema is noted. Interseptal thickening and bronchiectasis is concerning for interstitial lung disease. No mass. No consolidation. Pleural space: Unremarkable. No significant effusion. No pneumothorax. Heart: Coronary artery calcifications are present. Bones/joints: There are degenerative changes of the spine. No acute fracture. Soft tissues: Unremarkable. Lymph nodes: Hilar lymphadenopathy measures up to 1.4 cm in short axis. Gallbladder and bile ducts: Question pericholecystic fluid. IMPRESSION: 1. No pulmonary embolus. 2. Emphysema is noted. Emphysema is an independent risk factor for lung cancer. Recommend evaluation for low dose lung cancer screening protocol. 3. Interseptal thickening and bronchiectasis is concerning for interstitial lung disease. Cannot exclude superimposed pulmonary edema or atypical infection especially of the right upper lobe. 4. There is dilation of the pulmonary arteries. This is concerning for pulmonary artery hypertension. 5. Hilar lymphadenopathy measures up to 1.4 cm in short axis. This could be infectious, inflammatory or neoplastic. 6. Reflux of contrast into the hepatic veins is concerning for right heart failure. 7. Question pericholecystic fluid. Consider further evaluation with gallbladder ultrasound. Electronically signed by: Abigail Juares MD 06/30/24 21:14 PM Code Status & VTE Plan Code Status Full code VTE Prophylaxis Plan VTE Prophylaxis will be ordered: Yes PG Care Time/CCT Total # of Minutes Spent Total Time Spent with Patient: Total time spent is greater than 50% in coordination of care (as documented) at patient's floor/unit and/or counseling patient: Coding Level of Care Code 19563 INT INP/OBS CARE 3/75MIN Diagnoses Acute respiratory failure with hypoxia J96.01 Hypomagnesemia E83.42 Pulmonary fibrosis J84.10 Rhinovirus infection B34.8 COPD exacerbation J44.1 CHF (congestive heart failure) I50.9 Heart failure chronicity: acute Heart failure type: unspecified (6) CHF (congestive heart failure) Heart failure chronicity: acute Heart failure type: unspecified Qualified Code(s): I50.9 - Heart failure, unspecified
[2024-06-30] MEDS: ALBUT/IPRATROP 3MG/0.5MG NEB 3 ML VIAL ONE (22:32)
--- NOTE | 2024-06-30 23:25 | XRay Report ---
Exam(s): XR CXR 1 VIEW EXAM: XR Chest, 1 View CLINICAL HISTORY: Dyspnea. TECHNIQUE: Frontal view of the chest. COMPARISON: No relevant prior studies available. FINDINGS: Lungs: Bilateral airspace opacities are present. Pleural space: Small bilateral pleural effusions. No pneumothorax. Heart: Upper limits of normal cardiac silhouette. Mediastinum: Unremarkable. Normal mediastinal contour. Bones/joints: There are degenerative changes of the spine. No acute fracture. IMPRESSION: 1. Bilateral airspace opacities may represent pulmonary edema and/or atypical infection. 2. Small bilateral pleural effusions. Electronically signed by: Abigail Juares MD 06/30/24 23:24 PM
[2024-07-01 00:21] LABS: Appearance Urine Clear (Clear); Bilirubin Urine Negative (Negative); Blood Urine Negative (Negative); Color Urine Yellow; Glucose Urine UA Negative (Negative); Ketones Urine Negative (Negative); Leukocyte Esterase Urine Negative (Negative); Nitrite Urine Negative (Negative); Protein Urine Negative (Negative); Specific Gravity Urine 1.011 (1.000-1.030); Urobilinogen Urine Negative (Negative)
[2024-07-01] MEDS: Patient's ALLERGY Info needs ENTERED STA (01:37)
--- NOTE | 2024-07-01 02:16 | Ultrasound Report ---
Exam(s): US VENOUS BILATERAL LOWER EXTREMITIES EXAM: US Duplex Bilateral Lower Extremities Veins CLINICAL HISTORY: Swelling. TECHNIQUE: Real-time duplex ultrasound scan of the bilateral lower extremity veins integrating B-mode two-dimensional vascular structure, Doppler spectral analysis, color flow Doppler imaging and compression. COMPARISON: No relevant prior studies available. FINDINGS: Right deep veins: Unremarkable. No Deep vein thrombosis in the right common femoral, femoral, proximal deep femoral or popliteal veins. The veins demonstrate normal color flow, are normally compressible, with normal phasic flow and/or augmentation response. Right superficial veins: Unremarkable. No thrombus in the visualized right great saphenous vein. Left deep veins: Unremarkable. No Deep vein thrombosis in the left common femoral, femoral, proximal deep femoral or popliteal veins. The veins demonstrate normal color flow, are normally compressible, with normal phasic flow and/or augmentation response. Left superficial veins: Unremarkable. No thrombus in the visualized left great saphenous vein. Soft tissues: No acute findings. No popliteal cyst. IMPRESSION: No deep vein thrombosis of either lower extremity. Electronically signed by: Abigail Juares MD 07/01/24 02:15 AM
[2024-07-01] MEDS: POTASSIUM CHLORIDE CRTAB 20 MEQ TABCR PO STA ×2 (02:19→02:36)
[2024-07-01] MEDS: ACETAMINOPHEN 325 MG TAB PO PRN (02:35)
[2024-07-01] MEDS: AZITHROMYCIN 500 MG in SODIUM CHLORIDE 0.9% 250 ML IV STA (02:37)
[2024-07-01] MEDS: MAGNESIUM SULFATE / D5W 1 GM/100 ML BAG IV SCH (02:37)
[2024-07-01] MEDS ORDERED: ALBUT/IPRATROP 3MG/0.5MG NEB 3 ML VIAL INH PRN (05:17)
[2024-07-01] MEDS ORDERED: methylPREDNISolone 10 mg/mL (For Ped Dose < 7mg) IV SCH (06:00)
[2024-07-01 06:43] LABS: Basophils # (auto) 0.01 K/uL (0.00-0.20); Basophils % (auto) 0.2 %; Hematocrit (blood only) 43.5 % (37.0-47.0); Hemoglobin 14.1 g/dl (12.0-16.0); Immature Granulocytes # (auto) 0.03 K/uL (0.01-0.20); Immature Granulocytes % (auto) 0.7 %; Lymphocytes # (auto) 0.88 K/uL (1.20-3.40); Lymphocytes % (auto) 19.3 %; Mean Corpuscular Hgb Conc 32.4 g/dL (32.0-36.0); Mean Corpuscular Volume 92.6 fL (80.0-100.0); Mean Platelet Volume 12.1 fL (9.4-12.4); Monocytes # (auto) 0.62 K/uL (0.11-0.59); Monocytes % (auto) 13.6 %; Neutrophils # (auto) 3.03 K/uL (1.40-6.50); Neutrophils % (auto) 66.2 %; Platelet Count 147 K/uL (130-400); RDW Coefficient of Variation 16.7 % (11.5-14.5); RDW Standard Deviation 56.6 fL (36.4-46.3); White Blood Count 4.57 K/ul (4.8-10.8)
[2024-07-01 07:00] LABS: Albumin Globulin Ratio 1.4 (0.9-2); Albumin Level 3.8 gm/dl (3.4-5.0); BUN Creatinine Ratio 16.8 (10-20); Bilirubin,Total 0.7 mg/dl (0.2-1.0); Calcium 8.8 mg/dl (8.6-10.3); Creatinine Clr Calc Pharmacy 59.1 ml/min; Globulin 2.7 gm/dl (2.5-4.0); Magnesium 2.1 mg/dl (1.7-2.4); Potassium 3.9 mmol/L (3.5-5.1); Total Protein 6.5 gm/dl (6.0-8.3)
[2024-07-01] MEDS: methylPREDNISolone 40 MG in SYRINGE 0 ML IV SCH ×2 (07:05→20:03)
[2024-07-01 07:07] LABS: Troponin I High Sensitivity 12.9 pg/ml (0-14)
[2024-07-01] MEDS: ALBUT/IPRATROP 3MG/0.5MG NEB 3 ML VIAL NEB SCH (07:22)
--- NOTE | 2024-07-01 08:26 | Cardiology Consultation ---
Date of Consultation July 01, 2024 Assessment & Plan (1) Acute respiratory failure with hypoxia: (2) Pulmonary fibrosis: (3) CHF (congestive heart failure): (4) Right heart failure due to pulmonary hypertension: (5) Chest pain: Plan 1. Respiratory failure: I believe this is primarily pulmonary in etiology, although there does appear to be a component of left heart failure. I suspect it is on the basis of volume overload due to dietary indiscretion. 2. Pulmonary fibrosis: This is probably the main pulmonary problem that she has and has caused longstanding dyspnea. 3. Congestive heart failure: She appears to have some degree of left heart failure which I believe is due to volume overload from excessive fluid intake (which she describes drinking fluid due to dry mouth). She does have right heart failure as well which is described below. Other than diuresis there is no treatment indicated for her left heart failure. 4. Right heart failure: She has decreased right ventricular function as well as an elevated right atrial size and right ventricular dilatation all consistent with right ventricular pressure overload, and she has pulmonary hypertension. I suspect that the right heart failure is a recent problem, possibly her pulmonary hypertension (which is most likely due to her lung disease) led to recent right ventricular dysfunction or she has been drinking enough fluid that she now has right and left heart failure. I would start with diuresis, she will probably have to live with some degree of a dry mouth and will need to be on a fluid restriction. 5. Chest discomfort: This is very atypical, I do not believe it is cardiac in nature. History of Present Illness Reason for Consultation: Possible CHF Attending Physician: Uziel Urias MD History of Present Illness This is a 58-year-old woman with a history of hypertension, neuropathy, rheumatoid arthritis and obstructive sleep apnea as well as pulmonary fibrosis, she was recently and [facility] although I do not have those records. She presents the emergency room June 30, 2024 with increasing dyspnea. She wears 3 L oxygen at all times. She also has intermittent left-sided chest discomfort. She had noticed increasing edema for the last month, this is evidently quite significant for her although she does have a long history of occasional edema in her feet but not to the extent that she has had it in her legs and she also describes having bloating in her belly and she even thinks she has it in her face at times. She does drink quite a bit of water, she tells me she has a dry mouth and she drinks a lot of fluids including soda and water. She does not have exertional chest discomfort to suggest angina but she does have left-sided chest pain which is under her left breast and is not exertional. This is sharp and intermittent and does not sound pleuritic either. Initial evaluation was notable for slight troponin elevation (18.4 on presentation, subsequent test 12.9) and her chest x-ray showed bilateral opacities suggestive of pulmonary congestion and she had a BNP of 1866. She did have a chest CTA performed on June 30, 2023 which demonstrated emphysema, interstitial lung disease and dilated pulmonary arteries. An echocardiogram today demonstrates moderate right ventricular dilatation with mild right ventricular dysfunction and mild right atrial dilatation. Right ventricular systolic pressure is elevated to 50 to 60 mmHg. Allergies Allergy/AdvReac Type Severity Reaction Status Date / Time No Known Allergies Allergy Unverified 07/01/24 01:38 Home Medications Medication Instructions Recorded Confirmed Type alendronate 70 mg tablet 70 mg PO WK 06/30/24 06/30/24 History buspirone 7.5 mg tablet 7.5 mg PO BID 06/30/24 06/30/24 History ergocalciferol (vitamin D2) 1,250 1,250 unit PO DAILY 06/30/24 06/30/24 History mcg (50,000 unit) capsule etanercept 50 mg/mL (1 mL) 50 mg subcut WK 06/30/24 06/30/24 History subcutaneous pen injector (Enbrel SureClick) fluticasone fur. 100 mcg-umeclid 1 inh inhalation DAILY 06/30/24 06/30/24 History 62.5 mcg-vilant 25 mcg inhalat.powder (Trelegy Ellipta) ibuprofen 800 mg tablet 800 mg PO Q8H PRN Pain 06/30/24 06/30/24 History ipratropium 0.5 mg-albuterol 3 mg 3 ml inhalation Q4H PRN breath 06/30/24 06/30/24 History (2.5 mg base)/3 mL nebulization soln leflunomide 20 mg tablet 20 mg PO DAILY 06/30/24 06/30/24 History lidocaine-prilocaine 2.5 %-2.5 % 1 applic topical BID 06/30/24 06/30/24 History topical cream losartan 25 mg tablet 25 mg PO DAILY 06/30/24 06/30/24 History methocarbamol 750 mg tablet 750 mg PO TID 06/30/24 06/30/24 History modafinil 200 mg tablet 200 mg PO QAM 06/30/24 06/30/24 History nicotine 14 mg/24 hr daily 1 patch transdermal DAILY 06/30/24 06/30/24 History transdermal patch nintedanib 150 mg capsule (Ofev) 150 mg PO BID 06/30/24 06/30/24 History omeprazole 40 mg capsule,delayed 40 mg PO DAILY 06/30/24 06/30/24 History release sennosides 8.6 mg-docusate sodium 2 tab PO DAILY PRN therapy 06/30/24 06/30/24 History 50 mg tablet (Senexon-S) silver sulfadiazine 1 % topical 1 applic topical DAILY 06/30/24 06/30/24 History cream Patient History Medical History Pulmonary fibrosis Social History Smoking Status: Never smoker Second Hand Exposure: No; Do You Dip or Chew Tobacco: No; Hx Alcohol Use: No Hx Substance Use: No Preferred Language: Indonesian Communication Ability: Effective 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 She is resting in bed. HEENT: Unremarkable Neck: No jugular venous distention, carotid pulses are normal and equal bilaterally without bruits. Pulmonary: Expiratory wheezing bilaterally, crackles throughout. Cardiac: Regular rhythm with no murmur, gallop or rub. Abdomen: Soft, nontender with normal bowel sounds. Extremities: +2 pitting pretibial edema on the left, +1 on the right. Neurologic: No focal findings. Skin: No rash, ecchymoses or petechiae. Results & Data Vital Signs (Past 12 Hours) Vital Signs Pulse Pulse Resp BP Pulse Ox Pulse Ox O2 Del Method 07/01/24 07:23 76 22 91 Nasal Cannula 07/01/24 07:08 79 16 131/85 91 Nasal Cannula 07/01/24 06:55 74 07/01/24 05:30 76 18 99 07/01/24 03:19 88 24 135/84 90 Nasal Cannula 07/01/24 02:51 Nasal Cannula 07/01/24 02:51 93 H 17 160/106 H 91 Nasal Cannula 07/01/24 01:23 92 07/01/24 00:28 93 H 07/01/24 00:00 99 Nasal Cannula, BiPAP 06/30/24 22:54 86 06/30/24 22:00 82 18 150/127 H 92 BiPAP 06/30/24 21:41 86 L BiPAP 06/30/24 21:33 86 18 95 06/30/24 21:24 90 22 85 L Nasal Cannula 06/30/24 21:00 88 20 157/99 H 86 L Nasal Cannula O2 Del Method O2 Flow Rate O2 Flow Rate FiO2 07/01/24 07:23 5 07/01/24 07:08 5 07/01/24 06:55 07/01/24 05:30 45 07/01/24 03:19 6 07/01/24 02:51 5 07/01/24 02:51 5 07/01/24 01:23 Nasal Cannula 5 07/01/24 00:28 07/01/24 00:00 50 06/30/24 22:54 06/30/24 22:00 06/30/24 21:41 5 06/30/24 21:33 50 06/30/24 21:24 5 06/30/24 21:00 5 Laboratory Results Cardiac Enzymes 06/30/24 06/30/24 07/01/24 Range/Units 18:55 21:25 06:15 AST 26 25 (13-39) U/L Troponin I High Sens 20.6 H 18.4 H 12.9 D (0-14) pg/ml B-Natriuretic Peptide 1866 H (0-100) pg/ml Coagulation 06/30/24 06/30/24 Range/Units 18:55 18:56 PT 13.4 H (9.0-12.0) Seconds APTT 26 (21-31) Seconds B-Natriuretic Peptide 1866 H (0-100) pg/ml CBC 06/30/24 07/01/24 Range/Units 18:55 06:15 WBC 6.74 4.57 L (4.8-10.8) K/ul RBC 4.76 4.70 (4.20-5.40) M/uL Hgb 14.5 14.1 (12.0-16.0) g/dl Hct 44.0 43.5 (37.0-47.0) % Plt Count 146 147 (130-400) K/uL Neut # (Auto) 4.46 3.03 (1.40-6.50) K/uL Lymph # (Auto) 1.57 0.88 L (1.20-3.40) K/uL [place] # (Auto) 0.58 0.62 H (0.11-0.59) K/uL Eos # (Auto) 0.09 0.00 (0.00-0.50) K/uL Baso # (Auto) 0.03 0.01 (0.00-0.20) K/uL Comprehensive Metabolic Panel 06/30/24 07/01/24 Range/Units 18:55 06:15 Sodium 134 L 136 (136-145) mmol/L Potassium 3.6 3.9 (3.5-5.1) mmol/L Chloride 97 L 99 (98-107) mmol/L Carbon Dioxide 29 30 (21-32) mmol/L BUN 12 16 (6-23) mg/dl Creatinine 0.96 0.95 (0.6-1.2) mg/dl Glucose 124 H 147 H (70-99(Fasting)) mg/dl Calcium 9.3 8.8 (8.6-10.3) mg/dl AST 26 25 (13-39) U/L ALT 11 10 (7-52) U/L Alkaline Phosphatase 47 50 (34-104) U/L Total Protein 7.0 6.5 (6.0-8.3) gm/dl Albumin 4.1 3.8 (3.4-5.0) gm/dl Intake and Output 06/30/24 07/01/24 07/01/24 22:59 06:59 14:59 Intake Total 100 / 515 415 / 515 Output Total 900 / 900 Balance 100 / -385 -485 / -385 Intake: IV 100 / 515 415 / 515 Azithromycin 500 mg In Sodium 255 / 255 Chloride 0.9% 250 ml @ 127.5 mls/hr IV NOW STA Rx#:[id number] Magnesium Sulfate / D5w 1 gm In 100 / 260 160 / 260 100 ml @ 50 mls/hr IV Q2H GEOVANNI Rx#:[id number] Oral 0 / 0 Output: Urine 900 / 900 Other: # Unmeasured Voids 1 Weight 73.2 kg Weight Measurement Method Built in [facility] Diagnostic Findings Telemetry: Sinus rhythm, no significant arrhythmia. Her presenting electrocardiogram shows sinus rhythm at 80 bpm, late transition which could be due to a right ventricular hypertrophy. Nonspecific atrial abnormality Probably due to right atrial enlargement. PG Care Time/CCT Total # of Minutes Spent Total Time Spent with Patient: Total time spent is greater than 50% in coordination of care (as documented) at patient's floor/unit and/or counseling patient: Coding Level of Care Code 11095 INT INP/OBS CARE 3/75MIN Diagnoses Acute respiratory failure with hypoxia J96.01 Pulmonary fibrosis J84.10 CHF (congestive heart failure) I50.9 Heart failure chronicity: acute Heart failure type: unspecified Right heart failure due to pulmonary hypertension I27.29; I50.810 Chest pain R07.9 (3) CHF (congestive heart failure) Heart failure chronicity: acute Heart failure type: unspecified Qualified Code(s): I50.9 - Heart failure, unspecified
[2024-07-01] MEDS: ASPIRIN 81 MG ECTAB PO SCH (08:38)
[2024-07-01] MEDS: PANTOprazole 40 MG TAB PO SCH (08:39)
[2024-07-01] MEDS: NICOTINE 14 MG/24 HR PATCH TD SCH (08:40)
[2024-07-01] MEDS: busPIRone 7.5 MG TAB PO SCH (08:40)
[2024-07-01] MEDS: LOSARTAN POTASSIUM 25 MG TAB PO SCH (08:40)
[2024-07-01] MEDS: CHOLECALCIFEROL 25 MCG (1000 UNITS) TAB PO SCH (08:40)
[2024-07-01] MEDS: METHOCARBAMOL 750 MG TABLET PO SCH (08:41)
[2024-07-01] MEDS: LEFLUNOMIDE 10 MG TAB PO SCH (08:41)
[2024-07-01] MEDS: HEPARIN SOD 5,000 UNIT/0.5 ML VIAL SQ SCH (08:42)
[2024-07-01] MEDS: FUROSEMIDE 40 MG/4 ML VIAL IV SCH (08:42)
[2024-07-01] MEDS: FLUTICASONE FUROATE 100MCG 14 PUFFS/INHALER INH SCH (08:42)
[2024-07-01] MEDS: modafiniL 100 MG TAB PO SCH (08:43)
[2024-07-01] MEDS: SILVER SULFADIAZINE 1% CR 50 GM JAR TOP SCH (08:44)
--- NOTE | 2024-07-01 08:46 | Hospitalist Progress Note ---
Date of Service July 01, 2024 Assessment & Plan (1) Acute respiratory failure with hypoxia: (2) Pulmonary fibrosis: (3) Rhinovirus infection: (4) COPD exacerbation: (5) CHF (congestive heart failure): (6) RUQ pain: Plan The patient is a 58-year-old female with a past medical history including hypertension, peripheral neuropathy, CHF, rheumatoid arthritis, COPD, pulmonary fibrosis, GERD, obstructive sleep apnea, muscle spasm, and anxiety. She was hospitalized in May in [facility], due to pulmonary issues. She reports that over the past several days she has had worsening shortness of breath, lower extremity edema, increased need for oxygen and presents to the ED at [facility] for assessment. #Acute respiratory failure with hypoxia- Combination of COPD exacerbation, rhinovirus infection and CHF exacerbation Bipap -> 5L NC on 3L NC at baseline; attempt to titrate O2 to baseline #COPD exacerbation/rhinovirus infection/pulmonary fibrosis- methylprednisolone 40 mg IV Q8H -> decrease to 40 IV BID as per pulm recommendations Azithromycin 500 mg IV daily added Mucinex 60 mg p.o. every 12 hours Duonebs every 4 hours while awake and every 2 hours when necessary Continue Trelegy Ellipta added incentive spirometry and flutter valve added isolation precautions Pulmonology consult to Dr. Avalos #CHF exacerbation- Echo ordered - normal systolic function, grade 1 diastolic dysfunction, EF 55 to 60% cardiology consulted BNP 1865 on admission troponin downtrended furosemide 40 mg IV twice daily -> decrease to 40 IV daily given -1.35L negative balance after one AM dose 1/5 electrolytes replete; continue to trend with IV diuresis strict I&O's change diet to heart healthy, Low Na added TEDs, promote leg elevation #pericholecystic fluid- Chest CTA showed questionable cholecystic fluid, consider further eval with gallbladder ultrasound bilirubin (0.7) and liver enzymes WNL patient endorses in intermittent sharp RUQ pain x 2-3 months; tender to palpation on exam stated she had normal EGD 2-3 months ago gallbladder US ordered - cholelithiasis, no acute cholecystitis can consider nuclear medicine hepatobiliary scan Noninfectious at this time, afebrile with no leukocytosis trend CMP Chronic medical issues: #Rheumatoid arthritis- On Enbrel as an outpatient, continue ibuprofen prn and modafinil #Chronic pain- Previously had been on narcotic medications Continue Suboxone TID and methocarbamol #VINOD- Cpap HS ordered Request for patient records to [facility] has been sent VTE ppx: Heparin Diet: heart healthy, low Na Dispo: continue inpatient PCU status, pending cardiology and pulm consults, continue IV steroids and IV Lasix 40 Mg twice daily, titrate O2 as tolerated to baseline 3L Admission and Anticipated Discharge Date Admission Date: June 30, 2024 Subjective Patient seen at bedside and doing well. Her shortness of breath is improving, mild dry cough improving. She stated that her lower extremity edema is mildly i mproved and she has been urinating frequently in large amounts. Discussed with nursing staff and has not been recording urine output; will start to record after discussion. Patient stated she uses incentive spirometry at home for pulmonary fibrosis; ordered. She has not had acute CHF exacerbations previously until the recent few months, may need long-term diuretic use. She does try to limit her salt intake at home. She also uses CPAP at night; ordered. Discussed Pericholecystic fluid found on chest CT, patient has been having intermittent right upper quadrant pain for the past few months, it is a sharp pain. She denies it occurring after eating. She did have 1 episode of vomiting prior to arrival to the ED, however also tested positive for rhinovirus. Denies hematemesis or vomiting bile. She stated she had an EGD 2 to 3 months ago that was normal. Patient denies current nausea, chest pain, muscle cramps. 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 To be evaluated by cardiology and pulmonology today. Goal is to titrate down to baseline O2 of 3 L and titrate down on steroids possibly 1/6. Patient's daughter is a nurse practitioner who used to work here at [facility]. She now is a urology nurse practitioner in [place]. Review of Systems Review of Systems: see HPI Physical Exam Physical Exam: The patient is awake, alert and oriented 3, well developed and well nourished, normocephalic and atraumatic, in no acute distress. Non-toxic appearing. HEENT- EOMI, mucous membranes moist. Hearing grossly intact. Heart-normal S1 and S2. No murmurs, rubs or gallops. Lungs-crackles bilaterally, no respiratory distress, no accessory muscle use. Abdomen-normal bowel sounds and soft. No ascites noted. Tender to deep palpation of RUQ. Extremities- no clubbing, cyanosis. +1 pitting edema BL LE. Rheumatologic-normal range of motion. Psychiatric-normal affect. Results & Data Results & Data Vital Signs (Past 12 Hours) Vital Signs Pulse Pulse Resp BP Pulse Ox Pulse Ox O2 Del Method 07/01/24 07:23 76 22 91 Nasal Cannula 07/01/24 07:08 79 16 131/85 91 Nasal Cannula 07/01/24 06:55 74 07/01/24 05:30 76 18 99 07/01/24 03:19 88 24 135/84 90 Nasal Cannula 07/01/24 02:51 Nasal Cannula 07/01/24 02:51 93 H 17 160/106 H 91 Nasal Cannula 07/01/24 01:23 92 07/01/24 00:28 93 H 07/01/24 00:00 99 Nasal Cannula, BiPAP 06/30/24 22:54 86 06/30/24 22:00 82 18 150/127 H 92 BiPAP 06/30/24 21:41 86 L BiPAP 06/30/24 21:33 86 18 95 06/30/24 21:24 90 22 85 L Nasal Cannula 06/30/24 21:00 88 20 157/99 H 86 L Nasal Cannula O2 Del Method O2 Flow Rate O2 Flow Rate FiO2 07/01/24 07:23 5 07/01/24 07:08 5 07/01/24 06:55 07/01/24 05:30 45 07/01/24 03:19 6 07/01/24 02:51 5 07/01/24 02:51 5 07/01/24 01:23 Nasal Cannula 5 07/01/24 00:28 07/01/24 00:00 50 06/30/24 22:54 06/30/24 22:00 06/30/24 21:41 5 06/30/24 21:33 50 06/30/24 21:24 5 06/30/24 21:00 5 Laboratory Results Reviewed CBC, BMP, Mg Diagnostic Findings reviewed chest CTA PG Care Time/CCT Total # of Minutes Spent Total Time Spent with Patient: Total time spent is greater than 50% in coordination of care (as documented) at patient's floor/unit and/or counseling patient: Coding Level of Care Code 79217 SUB INP/OBS CARE 3/50MIN Diagnoses Acute respiratory failure with hypoxia J96.01 Pulmonary fibrosis J84.10 Rhinovirus infection B34.8 COPD exacerbation J44.1 CHF (congestive heart failure) I50.9 Heart failure chronicity: acute Heart failure type: unspecified RUQ pain R10.11 (5) CHF (congestive heart failure) Heart failure chronicity: acute Heart failure type: unspecified Qualified Code(s): I50.9 - Heart failure, unspecified
[2024-07-01] MEDS ORDERED: AZITHROMYCIN 500 MG VIAL IV SCH (09:00)
[2024-07-01] MEDS: guaiFENesin 600 MG TABCR PO SCH (09:10)
[2024-07-01] MEDS: UMECLIDINIUM/VILANTEROL 62.5/25MCG 7 PUFFS/INHALER INH SCH (10:18)
--- NOTE | 2024-07-01 12:00 | Pulmonary Consultation ---
Date of Consultation July 01, 2024 Assessment & Plan (1) Right heart failure due to pulmonary hypertension: (2) Acute on chronic respiratory failure with hypoxemia: (3) ILD (interstitial lung disease): (4) Rheumatoid arthritis: (5) Combined pulmonary fibrosis and emphysema (CPFE): (6) COPD with emphysema: (7) Rhinovirus infection: Plan CTA chest 06/30/2024 personally reviewed: Centrilobular emphysema appreciated bilaterally Right upper lobe patchy opacity, linear atelectasis right upper lobe anteriorly Increased reticular markings appreciated on the periphery especially in the lower lobes Early honeycombing No significant mediastinal lymphadenopathy -- Acute on chronic hypoxic respiratory failure Multifactorial Cor pulmonale exacerbation COPD exacerbation from entero-/rhinovirus infection BNP 186 Respiratory BioFire positive for entero/rhinovirus --Autoimmune related ILD Strong family history of ILD Follows up with Dr. Hawkins as outpatient Was started on Ofev but stopped taking it 2 months ago because of diarrhea --COPD with emphysema On Trelegy 100 at home --VINOD Continue with CPAP --History of rheumatoid arthritis On leflunomide 20 mg daily along with etanercept Plan: Recommend 2D echo if not already done Continue with diuretics to keep the patient negative balance. Aim for at least -1-1.5 L on a daily basis I do think there is a component of pulmonary hypertension with cor pulmonale Nebulized bronchodilators while in the hospital Decrease Solu-Medrol to 40 mg twice daily, gradually taper it off over the next 4-5 days Continue with antibiotics. Please note the above document was generated using voice recognition software. It may contain grammatical, syntax or spelling errors.Any formal questions or concerns about the content, text or information contained within the body of this dictation should be directly addressed to the provider for clarification. History of Present Illness Attending Physician: Uziel Urias MD History of Present Illness 58-year-old female present to the hospital with complaints of shortness of breath and lower extremity edema Past medical history: Hypertension, RA, pulmonary fibrosis, GERD, VINOD on CPAP at home, anxiety Pulmonary consulted for the same At the time of examination patient was saturating 93-94% on 5 L nasal cannula, I went down to 3 and half liters which is her baseline She stated that she started to feel short of breath for the last couple of days at that time she ended up to the hospital She was being treated for pneumonia as an outpatient. She is supposed to be on Ofev but she is not taking it because it was causing her significant diarrhea. She stopped taking approximately 2 months ago No dysuria or diarrhea Does complain of phlegm and has difficulty bringing it up. Subjective chills. 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 Has a dog at home which is hyper allergic No history of lung cancer in the family Allergies Allergy/AdvReac Type Severity Reaction Status Date / Time No Known Allergies Allergy Unverified 07/01/24 01:38 Home Medications Medication Instructions Recorded Confirmed Type alendronate 70 mg tablet 70 mg PO WK 06/30/24 06/30/24 History buspirone 7.5 mg tablet 7.5 mg PO BID 06/30/24 06/30/24 History ergocalciferol (vitamin D2) 1,250 1,250 unit PO DAILY 06/30/24 06/30/24 History mcg (50,000 unit) capsule etanercept 50 mg/mL (1 mL) 50 mg subcut WK 06/30/24 06/30/24 History subcutaneous pen injector (Enbrel SureClick) fluticasone fur. 100 mcg-umeclid 1 inh inhalation DAILY 06/30/24 06/30/24 History 62.5 mcg-vilant 25 mcg inhalat.powder (Trelegy Ellipta) ibuprofen 800 mg tablet 800 mg PO Q8H PRN Pain 06/30/24 06/30/24 History ipratropium 0.5 mg-albuterol 3 mg 3 ml inhalation Q4H PRN breath 06/30/24 06/30/24 History (2.5 mg base)/3 mL nebulization soln leflunomide 20 mg tablet 20 mg PO DAILY 06/30/24 06/30/24 History lidocaine-prilocaine 2.5 %-2.5 % 1 applic topical BID 06/30/24 06/30/24 History topical cream losartan 25 mg tablet 25 mg PO DAILY 06/30/24 06/30/24 History methocarbamol 750 mg tablet 750 mg PO TID 06/30/24 06/30/24 History modafinil 200 mg tablet 200 mg PO QAM 06/30/24 06/30/24 History nicotine 14 mg/24 hr daily 1 patch transdermal DAILY 06/30/24 06/30/24 History transdermal patch nintedanib 150 mg capsule (Ofev) 150 mg PO BID 06/30/24 06/30/24 History omeprazole 40 mg capsule,delayed 40 mg PO DAILY 06/30/24 06/30/24 History release sennosides 8.6 mg-docusate sodium 2 tab PO DAILY PRN therapy 06/30/24 06/30/24 History 50 mg tablet (Senexon-S) silver sulfadiazine 1 % topical 1 applic topical DAILY 06/30/24 06/30/24 History cream Patient History Medical History Pulmonary fibrosis Social History Smoking Status: Never smoker Second Hand Exposure: No; Do You Dip or Chew Tobacco: No; Hx Alcohol Use: No Hx Substance Use: No Preferred Language: Arabic Communication Ability: Effective Set Builder Required: No Beliefs That Will Affect Care: None Current Living Situation: Alone Other Information That Helps Us Care for You: No Feels Safe at Home: Yes Safety Concerns: Feels Safe At This Time Assistive Devices: Cane and Oxygen - Continuous Review of Systems 2 Review of Systems: All systems reviewed & are unremarkable except as noted in HPI & below Physical Exam 2 Physical Exam: Constitutional: No acute distress HEENT: EOMI, PERRLA Respiratory system: Decreased air entry bilaterally, no wheeze, positive rhonchi bilaterally positive crackles bilaterally Velcro-like CVS: S1-S2 positive, no murmurs or gallops, accentuated P2 Abdomen: Soft, nontender, nondistended, positive bowel sounds x4 Extremities: +2 pulses bilaterally radialis/ dorsalis pedis, no cyanosis, +2 pitting edema bilateral lower extremity Neuro: Awake alert oriented x3 Psych: Normal mood and affect G/U: No Esparza Skin: no rashes, warm and dry Lymphatic: no cervical or axillary lymphadenopathy Results & Data Results & Data Vital Signs (Past 12 Hours) Vital Signs Pulse Pulse Resp BP Pulse Ox Pulse Ox O2 Del Method 07/01/24 11:41 90 22 95 Nasal Cannula 07/01/24 11:00 91 H 22 161/104 H 93 High Flow Nasal Cannula 07/01/24 07:23 76 22 91 Nasal Cannula 07/01/24 07:08 79 16 131/85 91 Nasal Cannula 07/01/24 06:55 74 07/01/24 05:30 76 18 99 07/01/24 03:19 88 24 135/84 90 Nasal Cannula 07/01/24 02:51 Nasal Cannula 07/01/24 02:51 93 H 17 160/106 H 91 Nasal Cannula 07/01/24 01:23 92 07/01/24 00:28 93 H 07/01/24 00:00 99 Nasal Cannula, BiPAP O2 Del Method O2 Flow Rate O2 Flow Rate FiO2 07/01/24 11:41 5 07/01/24 11:00 5 07/01/24 07:23 5 07/01/24 07:08 5 07/01/24 06:55 07/01/24 05:30 45 07/01/24 03:19 6 07/01/24 02:51 5 07/01/24 02:51 5 07/01/24 01:23 Nasal Cannula 5 07/01/24 00:28 07/01/24 00:00 50 Laboratory Results 07/01/24 06:15 07/01/24 06:15 PG Care Time/CCT Total # of Minutes Spent Total Time Spent with Patient: Total time spent is greater than 50% in coordination of care (as documented) at patient's floor/unit and/or counseling patient: [place] [address] INT INP/OBS CARE 3/75MIN Patient Type New Diagnoses 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
--- NOTE | 2024-07-01 12:24 | XCELERA ---
[id number] [id number]
--- NOTE | 2024-07-01 12:52 | Ultrasound Report ---
US gallbladder CLINICAL HISTORY: pericholecystic fluid on CT, RUQ pain COMPARISON STUDY: Chest CT June 30, 2024. FINDINGS: No hepatic lesions are identified. There is no biliary ductal dilatation. The common bile d uct measures 5 mm in caliber. The gallbladder is filled with gallstones. There is mild gallbladder wa ll thickening. No sonographic Lopez sign was elicited. There is no right hydronephrosis. The pancrea s is obscured by overlying bowel gas. IMPRESSION: 1. Cholelithiasis. No sonographic evidence for acute cholecystitis. If persistent clinical suspicion, a nuclear medicine hepatobiliary scan could be obtained. 2. No biliary ductal dilatation. 3. Obscured pancreas. ACT 112: Negative or not required by law. Electronically signed by: Lasha Hernandez M.D. 07/01/2024 12:49 PM
[2024-07-01] MEDS: FORMOTEROL 20 MCG/2 ML VIAL NEB SCH (19:17)
[2024-07-01] MEDS: BUDESONIDE 0.5 MG/2 ML VIAL (PULMICORT) NEB SCH (19:17)
[2024-07-01] MEDS: BUPRENORPHINE/NALOXONE 2/0.5MG TAB SL ONE (21:36)
[2024-07-01] MEDS: AZITHROMYCIN 500 MG in SODIUM CHLORIDE 0.9% 250 ML IV SCH (21:40)
--- NOTE | 2024-07-01 21:50 | Communication Note ---
Date of Service: July 01, 2024 Contacted by nursing regarding patient's suboxone and gabapentin. Spoke to patient on the floor. Pt had pill box in her possession but no prescription bot tles. Suboxone verified through PDMP, last fill 06/29/24. Dosing is 8-2 TID. Medication ordered through our pharmacy. Verified patient recieved/filled script for gabapentin 900mg TID in 06/19. This was ordered as well. As I was leaving floor nursing was notifying security to collect and secure unmarked medication until patient is discharged. Resident Activity Tracking Resident Involvement: Resident Care Provided Care Provided: Adult Hospital Medicine
[2024-07-02 08:04] LABS: Basophils # (auto) 0.01 K/uL (0.00-0.20); Basophils % (auto) 0.1 %; Hematocrit (blood only) 46.8 % (37.0-47.0); Hemoglobin 15.2 g/dl (12.0-16.0); Immature Granulocytes # (auto) 0.03 K/uL (0.01-0.20); Immature Granulocytes % (auto) 0.3 %; Lymphocytes # (auto) 1.11 K/uL (1.20-3.40); Lymphocytes % (auto) 10.4 %; Mean Corpuscular Hemoglobin 30.3 pg (25.0-34.0); Mean Corpuscular Hgb Conc 32.5 g/dL (32.0-36.0); Mean Corpuscular Volume 93.2 fL (80.0-100.0); Mean Platelet Volume 11.3 fL (9.4-12.4); Monocytes # (auto) 0.62 K/uL (0.11-0.59); Monocytes % (auto) 5.8 %; Neutrophils # (auto) 8.94 K/uL (1.40-6.50); Neutrophils % (auto) 83.4 %; Platelet Count 177 K/uL (130-400); RDW Coefficient of Variation 17.6 % (11.5-14.5); Red Blood Count 5.02 M/uL (4.20-5.40); White Blood Count 10.71 K/ul (4.8-10.8)
[2024-07-02 08:31] LABS: Albumin Globulin Ratio 1.4 (0.9-2); Albumin Level 3.9 gm/dl (3.4-5.0); BUN Creatinine Ratio 16.2 (10-20); Bilirubin,Total 0.7 mg/dl (0.2-1.0); Creatinine Clr Calc Pharmacy 50.5 ml/min; Globulin 2.8 gm/dl (2.5-4.0); Potassium 5.1 mmol/L (3.5-5.1); Total Protein 6.7 gm/dl (6.0-8.3)
[2024-07-02] MEDS: BUPRENORPHINE/NALOXONE 8/2 MG TAB SL SCH (09:16)
[2024-07-02] MEDS: GABAPENTIN 300 MG CAP PO SCH (09:17)
[2024-07-02] MEDS: FUROSEMIDE 40 MG/4 ML VIAL IV SCH (09:18)
[2024-07-02] MEDS: UMECLIDINIUM BROMIDE 62.5MCG/BLISTER 7 PUFFS/INHALER INH SCH (09:22)
--- NOTE | 2024-07-02 14:35 | Pulmonology Progress Note ---
Date of Service July 02, 2024 Assessment & Plan (1) Right heart failure due to pulmonary hypertension: (2) Acute on chronic respiratory failure with hypoxemia: (3) ILD (interstitial lung disease): (4) Rheumatoid arthritis: (5) Combined pulmonary fibrosis and emphysema (CPFE): (6) COPD with emphysema: (7) Rhinovirus infection: Plan Impression: 58-year-old female with previous diagnosis of pulmonary fibrosis at outside facility, records not available to review, admitted with exacerbation and found to have pulmonary hypertension. Has a history of rheumatoid arthritis. Recommendations: 1. Hypoxemic respiratory failure: Continue supplemental oxygen titrated to keep saturations at or above 88%. May be exacerbated by current rhinovirus infection 2. Echocardiogram showed significant diastolic dysfunction as well as pulmonary hypertension. Would recommend trying to keep heart rate below 80 and blood pressure less than 135/75. Agree with diuresis for now with attention to kidney function and electrolytes. May benefit from right heart catheterization at a tertiary center at some point 3. Interstitial lung disease unclear if this is a steroid responsive illness or not. Review of her CT scan does not demonstrate significant alveolitis. Currently on Solu-Medrol 40 mg twice a day. Seems reasonable to continue for now but will likely transition to prednisone relatively quickly with plans for taper over a short period of time 4. Sleep apnea: Current usage impaired by sinus issues. 5. Rhinovirus: Supportive care. 6. COPD: Continue nebulizers but will change DuoNebs to as needed. Continue Perforomist, budesonide, and Incruse. Decrease azithromycin to 250 mg orally daily. Patient's database is incomplete as we do not have records from her prior pulmonary evaluation. If ongoing care is anticipated in our system, would recommend that we get copies of her prior pulmonary function testing, imaging studies, pathology results, serological evaluations, and pulmonary clinical evaluations. She should follow with a transplant center at discharge. Unclear if she is a candidate currently. If her oxygenation should fail to improve, would have a low threshold for transferring her acutely to a tertiary facility. Total of 60 minutes was spent in evaluation management and coordination of care for this patient. Admission and Anticipated Discharge Date Admission Date: June 30, 2024 Subjective Patient seen and examined. EMR reviewed. Discussed with off going garden worker. The patient states she is doing little bit better. She continues to have significant oxygen desaturations with any significant physical activity. Records are incomplete as the patient was followed by Dr. Mueller at [facility] in the past. She reportedly had a biopsy showing pulmonary fibrosis. She has been intermittently tried on antifibrotic agents, most recently nintedanib which she was poorly tolerant due to GI issues. She has apparently been on steroids in the past but is not really noted much in the way of clinical benefit. According to the patient, she was to be referred to a transplant center but that appointment was canceled. She believes she was being referred to [place]. She is not really coughing or expectorating significant phlegm. She continues to have significant postnasal drip which impairs her ability to be compliant with CPAP or BiPAP at night. Review of Systems 2 Review of Systems: All systems reviewed & are unremarkable except as noted in Subjective Physical Exam 2 Constitutional: WD/WN, vitals as above Neck: trachea midline, no thyromegaly Respiratory: no labored breathing, no cough and not tachypneic A uscultation: + crackles and + bronchovesicular breath sounds Cardiovascular: RRR, no murmur, no edema Gastrointestinal (Abdomen): normal bowel sounds, soft, nontender, no hepatosplenomegaly Musculoskeletal: Extremities: extremities normal to inspection Skin: no rashes, warm and dry Neurologic: Nonfocal exam Lymphatic: no cervical lymphadenopathy Results & Data Results & Data Vital Signs (Past 12 Hours) Vital Signs Temp Pulse Pulse Resp BP Pulse Ox O2 Del Method 07/02/24 11:36 36.4 C 96 H 20 152/91 H 90 Nasal Cannula 07/02/24 10:40 102 H 20 89 L Nasal Cannula 07/02/24 09:57 Nasal Cannula 07/02/24 08:03 36.3 C L 95 H 18 162/76 H 92 High Flow Nasal Cannula 07/02/24 07:38 94 H 18 91 Nasal Cannula 07/02/24 07:28 80 07/02/24 04:30 36.6 C 89 18 119/72 92 High Flow Nasal Cannula O2 Flow Rate 07/02/24 11:36 5 07/02/24 10:40 5 07/02/24 09:57 5 07/02/24 08:03 5 07/02/24 07:38 5 07/02/24 07:28 07/02/24 04:30 5 Laboratory Results 07/02/24 07:41 07/02/24 07:41 Diagnostic Findings No new imaging PG Care Time/CCT Total # of Minutes Spent Total Time Spent with Patient: Total time spent is greater than 50% in coordination of care (as documented) at patient's floor/unit and/or counseling patient: Coding Level of Care Code 63326 SUB INP/OBS CARE 3/50MIN Diagnoses 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
[2024-07-02] MEDS: ALBUT/IPRATROP 3MG/0.5MG NEB 3 ML VIAL NEB PRN (14:54)
--- NOTE | 2024-07-02 16:31 | Electrocardiogram Report ---
Test Reason : Blood Pressure : */* mmHG Vent. Rate : 85 BPM Atrial Rate : 85 BPM P-R Int : 134 ms QRS Dur : 80 ms QT Int : 376 ms P-R-T Axes : 66 81 22 degrees QTcB Int : 447 ms Normal sinus rhythm Normal ECG When compared with ECG of 26-Apr-2016 15:38, Nonspecific T wave abnormality now evident in Inferior leads T wave inversion now evident in Anterior leads Confirmed by Filemon Sal ([id number]) on 07/02/2024 4:31:34 PM Referred By: REFERRED SELF Confirmed By: Filemon Sal
--- NOTE | 2024-07-02 17:27 | Hospitalist Progress Note ---
Date of Service July 02, 2024 Assessment & Plan (1) Acute respiratory failure with hypoxia: (2) Pulmonary fibrosis: (3) Rhinovirus infection: (4) COPD exacerbation: (5) CHF (congestive heart failure): (6) RUQ pain: Plan The patient is a 58-year-old female with a past medical history including hypertension, peripheral neuropathy, CHF, rheumatoid arthritis, COPD, pulmonary fibrosis, GERD, obstructive sleep apnea, muscle spasm, and anxiety. She was hospitalized in May in [facility], due to pulmonary issues. She reports that over the past several days she has had worsening shortness of breath, lower extremity edema, increased need for oxygen and presents to the ED at [facility] for assessment. #Acute respiratory failure with hypoxia- Combination of COPD exacerbation, rhinovirus infection and CHF exacerbation Bipap -> 5L NC on 3L NC at baseline; attempt to titrate O2 to baseline currently on 5 liters. #COPD exacerbation/rhinovirus infection/pulmonary fibrosis- methylprednisolone 40 mg IV Q8H -> decrease to 40 IV BID as per pulm recommendations Azithromycin 500 mg IV daily added Mucinex 60 mg p.o. every 12 hours Duonebs every 4 hours while awake and every 2 hours when necessary Continue Trelegy Ellipta added incentive spirometry and flutter valve added isolation precautions Pulmonology consult Pulmonary hypertension playing a role. #CHF exacerbation- Echo ordered - normal systolic function, grade 1 diastolic dysfunction, EF 55 to 60% cardiology consulted BNP 1866 on admission troponin downtrended furosemide 40 mg IV twice daily -> decrease to 40 IV daily given -1.35L negative balance after one AM dose 1/5 electrolytes replete; continue to trend with IV diuresis strict I&O's change diet to heart healthy, Low Na added TEDs, promote leg elevation #pericholecystic fluid- Chest CTA showed questionable cholecystic fluid, consider further eval with gallbladder ultrasound bilirubin (0.7) and liver enzymes WNL patient endorses in intermittent sharp RUQ pain x 2-3 months; tender to palpation on exam stated she had normal EGD 2-3 months ago gallbladder US ordered - cholelithiasis, no acute cholecystitis can consider nuclear medicine hepatobiliary scan Noninfectious at this time, afebrile with no leukocytosis trend CMP Chronic medical issues: #Rheumatoid arthritis- On Enbrel as an outpatient, continue ibuprofen prn and modafinil #Chronic pain- Previously had been on narcotic medications Continue Suboxone TID and methocarbamol #VINOD- Cpap HS ordered Request for patient records to [facility] has been sent VTE ppx: Heparin Diet: heart healthy, low Na Dispo: continue inpatient PCU status, pending cardiology and pulm consults, continue IV steroids and IV Lasix 40 Mg daily, titrate O2 as tolerated to baseline 3L Admission and Anticipated Discharge Date Admission Date: June 30, 2024 Subjective Patient reports still feeling SOB on exertion. Physical Exam Physical Exam: The patient is awake, alert and oriented 3, in no acute distress. Non-toxic appearing. HEENT- EOMI, mucous membranes moist. Hearing grossly intact. Heart-normal S1 and S2. No murmurs, rubs or gallops. Lungs-crackles bilaterally, no respiratory distress, no accessory muscle use. Abdomen-normal bowel sounds and soft. No ascites noted. Tender to deep palpation of RUQ. Extremities- no clubbing, cyanosis. +1 pitting edema BL LE. Results & Data Results & Data Vital Signs (Past 12 Hours) Vital Signs Temp Pulse Pulse Resp BP Pulse Ox O2 Del Method 07/02/24 15:00 140/91 07/02/24 14:54 100 H 18 89 L Nasal Cannula 07/02/24 14:32 114 H 07/02/24 11:36 36.4 C 96 H 20 152/91 H 90 Nasal Cannula 07/02/24 10:40 102 H 20 89 L Nasal Cannula 07/02/24 09:57 Nasal Cannula 07/02/24 08:03 36.3 C L 95 H 18 162/76 H 92 High Flow Nasal Cannula 07/02/24 07:38 94 H 18 91 Nasal Cannula 07/02/24 07:28 80 O2 Flow Rate 07/02/24 15:00 07/02/24 14:54 5 07/02/24 14:32 07/02/24 11:36 5 07/02/24 10:40 5 07/02/24 09:57 5 07/02/24 08:03 5 07/02/24 07:38 5 07/02/24 07:28 PG Care Time/CCT Total # of Minutes Spent Total Time Spent with Patient: Total time spent is greater than 50% in coordination of care (as documented) at patient's floor/unit and/or counseling patient: Coding Level of Care Code 40656 SUB INP/OBS CARE 2MIN Diagnoses Acute respiratory failure with hypoxia J96.01 Pulmonary fibrosis J84.10 Rhinovirus infection B34.8 COPD exacerbation J44.1 CHF (congestive heart failure) I50.9 Heart failure chronicity: acute Heart failure type: unspecified RUQ pain R10.11 (5) CHF (congestive heart failure) Heart failure chronicity: acute Heart failure type: unspecified Qualified Code(s): I50.9 - Heart failure, unspecified
[2024-07-02] MEDS: AZITHROMYCIN 250 MG TAB PO SCH (20:23)
[2024-07-02] MEDS: SODIUM CHLORIDE 0.65% NA SOLN 45 ML (OCEAN) ONE (20:23)
[2024-07-02] MEDS: LOSARTAN POTASSIUM 25 MG TAB PO ONE (22:40)
--- NOTE | 2024-07-03 06:40 | Electrocardiogram Report ---
Test Reason : Blood Pressure : */* mmHG Vent. Rate : 89 BPM Atrial Rate : 89 BPM P-R Int : 138 ms QRS Dur : 80 ms QT Int : 386 ms P-R-T Axes : 72 73 42 degrees QTcB Int : 469 ms Normal sinus rhythm Right atrial enlargement Borderline ECG When compared with ECG of 30-Jun-2024 19:15, (unconfirmed) No significant change was found Confirmed by Filemon Sal ([id number]) on 07/03/2024 6:39:45 AM Referred By: REFERRED SELF Confirmed By: Filemon Sal
[2024-07-03 07:17] LABS: Hematocrit (blood only) 46.5 % (37.0-47.0); Hemoglobin 15.1 g/dl (12.0-16.0); Immature Granulocytes # (auto) 0.02 K/uL (0.01-0.20); Immature Granulocytes % (auto) 0.3 %; Lymphocytes # (auto) 0.96 K/uL (1.20-3.40); Lymphocytes % (auto) 12.3 %; Mean Corpuscular Hemoglobin 30.3 pg (25.0-34.0); Mean Corpuscular Hgb Conc 32.5 g/dL (32.0-36.0); Mean Corpuscular Volume 93.2 fL (80.0-100.0); Mean Platelet Volume 11.6 fL (9.4-12.4); Monocytes # (auto) 0.36 K/uL (0.11-0.59); Monocytes % (auto) 4.6 %; Neutrophils # (auto) 6.47 K/uL (1.40-6.50); Neutrophils % (auto) 82.8 %; Platelet Count 175 K/uL (130-400); RDW Coefficient of Variation 17.2 % (11.5-14.5); Red Blood Count 4.99 M/uL (4.20-5.40); White Blood Count 7.81 K/ul (4.8-10.8)
[2024-07-03 07:27] LABS: Albumin Globulin Ratio 1.4 (0.9-2); Albumin Level 3.9 gm/dl (3.4-5.0); BUN Creatinine Ratio 27.5 (10-20); Bilirubin,Total 0.8 mg/dl (0.2-1.0); C Reactive Protein 0.52 mg/dl (0-0.5); Calcium 8.9 mg/dl (8.6-10.3); Globulin 2.8 gm/dl (2.5-4.0); Potassium 4.5 mmol/L (3.5-5.1); Total Protein 6.7 gm/dl (6.0-8.3)
[2024-07-03] MEDS: IBUPROFEN 800 MG TAB PO PRN (07:43)
[2024-07-03] MEDS: BISOPROLOL FUMARATE 5 MG TAB PO SCH (08:39)
[2024-07-03] MEDS: DOCUSATE SODIUM/SENNA 50/8.6MG TAB PO PRN (10:42)
--- NOTE | 2024-07-03 12:11 | Pulmonology Progress Note ---
Date of Service July 03, 2024 Assessment & Plan (1) Right heart failure due to pulmonary hypertension: (2) Acute on chronic respiratory failure with hypoxemia: (3) ILD (interstitial lung disease): (4) Rheumatoid arthritis: (5) Combined pulmonary fibrosis and emphysema (CPFE): (6) COPD with emphysema: (7) Rhinovirus infection: Plan Impression: 58-year-old female with previous diagnosis of pulmonary fibrosis at outside facility, records not available to review, admitted with exacerbation and found to have pulmonary hypertension. Has a history of rheumatoid arthritis. Recommendations: 1. Hypoxemic respiratory failure: Continue supplemental oxygen titrated to keep saturations at or above 88%. May be exacerbated by current rhinovirus infection. Fluctuation for requirement at this time. Goal her baseline 3L. 2. Echocardiogram showed significant diastolic dysfunction as well as pulmonary hypertension. Would recommend trying to keep heart rate below 80 and blood pressure less than 135/75. Agree with diuresis for now with attention to kidney function and electrolytes. May benefit from right heart catheterization at a tertiary center at some point 3. Interstitial lung disease unclear if this is a steroid responsive illness or not. Review of her CT scan does not demonstrate significant alveolitis. Currently on Solu-Medrol 40 mg twice a day. Seems reasonable to continue for now but will likely transition to prednisone relatively quickly with plans for taper over a short period of time. 4. Sleep apnea: Current usage impaired by sinus issues. 5. Rhinovirus: Supportive care. 6. COPD: Continue nebulizers but will change DuoNebs to as needed. Continue Perforomist, budesonide, and Incruse. Decrease azithromycin to 250 mg orally daily. Patient's database is incomplete as we do not have records from her prior pulmonary evaluation. If ongoing care is anticipated in our system, would recommend that we get copies of her prior pulmonary function testing, imaging studies, pathology results, serological evaluations, and pulmonary clinical evaluations. She should follow with a transplant center at discharge. Unclear if she is a candidate currently. If her oxygenation should fail to improve, would have a low threshold for transferring her acutely to a tertiary facility. Thank you for allowing us to participate in the care of this pleasant patient. Patient is nearing her baseline at this time. Anticipated discharge in the next 24 to 48 hours. Admission and Anticipated Discharge Date Admission Date: June 30, 2024 Subjective Patient seen and evaluated at bedside. She reports that she is feeling same to slightly better. She still has some dyspnea with exertion. She is anxious to be discharged to home. Review of Systems Review of Systems: As per HPI. Physical Exam Physical Exam: VITAL SIGNS Vital signs and nursing notes were reviewed. GENERAL 58-year-old female appearing her stated age who is in no acute distress. Communicates well with provider and answers questions appropriately. SKIN Without rashes or lesions. NOSE Midline and without cyanosis. MOUTH/OROPHARYNX Without perioral cyanosis. NECK Neck with FROM. LUNGS Chest wall evaluation demonstrates normal chest wall A:P diameter. Auscultation reveals diffuse Rales. CARDIAC RRR with S1/S2. No murmur, rubs, or gallops appreciated. EXTREMITIES Nail clubbing not present. No peripheral cyanosis. Mild pretibial edema present. +3/5 radial palpated throughout. PSYCH A&Ox3 and cooperates fully with examiner. Pt is very pleasant and interacts well with examiner. Results & Data Results & Data Vital Signs (Past 12 Hours) Vital Signs Temp Pulse Pulse Resp BP Pulse Ox Pulse Ox 07/03/24 11:34 36.6 C 80 18 167/94 H 92 07/03/24 07:18 85 07/03/24 07:17 99 H 18 90 07/03/24 07:15 07/03/24 07:10 37 C 105 H 17 186/110 H 90 07/03/24 03:12 36.7 C 97 H 18 174/110 H 91 07/03/24 01:00 92 O2 Del Method O2 Del Method O2 Flow Rate O2 Flow Rate 07/03/24 11:34 Nasal Cannula 5 07/03/24 07:18 07/03/24 07:17 Nasal Cannula 5 07/03/24 07:15 Nasal Cannula 5 07/03/24 07:10 Nasal Cannula 5 07/03/24 03:12 Nasal Cannula 5 07/03/24 01:00 High Flow Nasal Cannula 5 PG Care Time/CCT Total # of Minutes Spent Total Time Spent with Patient: Total time spent is greater than 50% in coordination of care (as documented) at patient's floor/unit and/or counseling patient: Coding Level of Care Code 80995 SUB INP/OBS CARE 2/35MIN Diagnoses 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
--- NOTE | 2024-07-03 22:25 | Hospitalist Progress Note ---
Date of Service July 03, 2024 Assessment & Plan (1) Acute respiratory failure with hypoxia: (2) Pulmonary fibrosis: (3) Rhinovirus infection: (4) COPD exacerbation: (5) CHF (congestive heart failure): (6) RUQ pain: Plan The patient is a 58-year-old female with a past medical history including hypertension, peripheral neuropathy, CHF, rheumatoid arthritis, COPD, pulmonary fibrosis, GERD, obstructive sleep apnea, muscle spasm, and anxiety. She was hospitalized in May in [facility], due to pulmonary issues. She reports that over the past several days she has had worsening shortness of breath, lower extremity edema, increased need for oxygen and presents to the ED at [facility] for assessment. #Acute respiratory failure with hypoxia- Combination of COPD exacerbation, rhinovirus infection and CHF exacerbation Bipap -> 5L NC on 3L NC at baseline; attempt to titrate O2 to baseline currently on 4 liters. nearing baseline #COPD exacerbation/rhinovirus infection/pulmonary fibrosis- methylprednisolone 40 mg IV Q8H -> decrease to 40 IV BID as per pulm recommendations Azithromycin 500 mg IV daily added Mucinex 60 mg p.o. every 12 hours Duonebs every 4 hours while awake and every 2 hours when necessary Continue Trelegy Ellipta added incentive spirometry and flutter valve added isolation precautions Pulmonology consult Pulmonary hypertension playing a role. #CHF exacerbation- Echo ordered - normal systolic function, grade 1 diastolic dysfunction, EF 55 to 60% cardiology consulted BNP 6 on admission troponin downtrended furosemide 40 mg IV twice daily -> decrease to 40 IV daily given -1.35L negative balance after one AM dose 1/5 electrolytes replete; continue to trend with IV diuresis strict I&O's change diet to heart healthy, Low Na added TEDs, promote leg elevation #pericholecystic fluid- Chest CTA showed questionable cholecystic fluid, consider further eval with gallbladder ultrasound bilirubin (0.7) and liver enzymes WNL patient endorses in intermittent sharp RUQ pain x 2-3 months; tender to palpation on exam stated she had normal EGD 2-3 months ago gallbladder US ordered - cholelithiasis, no acute cholecystitis can consider nuclear medicine hepatobiliary scan Noninfectious at this time, afebrile with no leukocytosis trend CMP Chronic medical issues: #Rheumatoid arthritis- On Enbrel as an outpatient, continue ibuprofen prn and modafinil #Chronic pain- Previously had been on narcotic medications Continue Suboxone TID and methocarbamol #VINOD- Cpap HS ordered Request for patient records to [facility] has been sent VTE ppx: Heparin Diet: heart healthy, low Na Dispo: continue inpatient PCU status, pending cardiology and pulm consults, continue IV steroids and IV Lasix 40 Mg daily, titrate O2 as tolerated to baseline 3L Admission and Anticipated Discharge Date Admission Date: June 30, 2024 Subjective Patient feeling better, not quite at baseline. Physical Exam Physical Exam: The patient is awake, alert and oriented 3, in no acute distress. Non-toxic appearing. HEENT- EOMI, mucous membranes moist. Hearing grossly intact. Heart-normal S1 and S2. No murmurs, rubs or gallops. Lungs-crackles bilaterally, no respiratory distress, no accessory muscle use. Abdomen-normal bowel sounds and soft. No ascites noted. Tender to deep palpation of RUQ. Extremities- no clubbing, cyanosis. +1 pitting edema BL LE. Results & Data Results & Data Vital Signs (Past 12 Hours) Vital Signs Temp Pulse Pulse Resp BP Pulse Ox O2 Del Method 07/03/24 21:32 88 20 90 Nasal Cannula 07/03/24 19:34 36.8 C 86 18 172/97 H 90 Nasal Cannula 07/03/24 17:39 93 H 07/03/24 16:17 36.4 C L 83 16 157/88 H 90 Nasal Cannula 07/03/24 11:34 36.6 C 80 18 167/94 H 92 Nasal Cannula O2 Flow Rate 07/03/24 21:32 4 07/03/24 19:34 5 07/03/24 17:39 07/03/24 16:17 07/03/24 11:34 5 PG Care Time/CCT Total # of Minutes Spent Total Time Spent with Patient: Total time spent is greater than 50% in coordination of care (as documented) at patient's floor/unit and/or counseling patient: Coding Level of Care Code 75007 SUB INP/OBS CARE 2/35MIN Diagnoses Acute respiratory failure with hypoxia J96.01 Pulmonary fibrosis J84.10 Rhinovirus infection B34.8 COPD exacerbation J44.1 CHF (congestive heart failure) I50.9 Heart failure chronicity: acute Heart failure type: unspecified RUQ pain R10.11 (5) CHF (congestive heart failure) Heart failure chronicity: acute Heart failure type: unspecified Qualified Code(s): I50.9 - Heart failure, unspecified
[2024-07-04 07:51] LABS: Hematocrit (blood only) 47.3 % (37.0-47.0); Hemoglobin 15.4 g/dl (12.0-16.0); Mean Corpuscular Hemoglobin 30.6 pg (25.0-34.0); Mean Corpuscular Hgb Conc 32.6 g/dL (32.0-36.0); Mean Corpuscular Volume 93.8 fL (80.0-100.0); Mean Platelet Volume 12.2 fL (9.4-12.4); Platelet Count 189 K/uL (130-400); RDW Standard Deviation 58.7 fL (36.4-46.3); Red Blood Count 5.04 M/uL (4.20-5.40); White Blood Count 6.88 K/ul (4.8-10.8)
[2024-07-04 08:50] LABS: Albumin Level 3.7 gm/dl (3.4-5.0); Bilirubin Direct 0.2 mg/dl (0-0.2); Bilirubin,Total 0.8 mg/dl (0.2-1.0); Calcium 8.8 mg/dl (8.6-10.3); Creatinine Clr Calc Pharmacy 57.8 ml/min; Potassium 4.7 mmol/L (3.5-5.1); Total Protein 6.4 gm/dl (6.0-8.3)
--- NOTE | 2024-07-04 11:06 | Pulmonology Progress Note ---
Date of Service July 04, 2024 Assessment & Plan (1) Right heart failure due to pulmonary hypertension: (2) Acute on chronic respiratory failure with hypoxemia: (3) ILD (interstitial lung disease): (4) Rheumatoid arthritis: (5) Combined pulmonary fibrosis and emphysema (CPFE): (6) COPD with emphysema: (7) Rhinovirus infection: Plan Impression: 58-year-old female with previous diagnosis of pulmonary fibrosis at outside facility, records not available to review, admitted with exacerbation and found to have pulmonary hypertension. Has a history of rheumatoid arthritis. Recommendations: 1. Hypoxemic respiratory failure: Continue supplemental oxygen titrated to keep saturations at or above 88%. May be exacerbated by current rhinovirus infection. Fluctuation for requirement at this time. Goal her baseline 3L. 2. Echocardiogram showed significant diastolic dysfunction as well as pulmonary hypertension. Would recommend trying to keep heart rate below 80 and blood pressure less than 135/75. Agree with diuresis for now with attention to kidney function and electrolytes. She has developed a mild alkalosis and 1 dose of Diamox will be given today. May benefit from right heart catheterization at a tertiary center at some point 3. Interstitial lung disease unclear if this is a steroid responsive illness or not. Review of her CT scan does not demonstrate significant alveolitis. Transition to oral prednisone 40 mg a day with plans to taper over the next 2 to 3 months and coordination with her outpatient medical anthropologist. Will place on Bactrim prophylaxis. 4. Sleep apnea: Current usage impaired by sinus issues. 5. Rhinovirus: Supportive care. 6. COPD: Continue nebulizers but will change DuoNebs to as needed. Continue Perforomist, budesonide, and Incruse. Continue azithromycin to 250 mg orally daily. Patient's database is incomplete as we do not have records from her prior pulmonary evaluation. If ongoing care is anticipated in our system, would recommend that we get copies of her prior pulmonary function testing, imaging studies, pathology results, serological evaluations, and pulmonary clinical evaluations. She should follow with a transplant center at discharge. Unclear if she is a candidate currently. If her oxygenation should fail to improve, would have a low threshold for transferring her acutely to a tertiary facility. Would recommend coordinating with the case management planners and discharge planners to see whether or not a high capacity oxygen concentrator might be delivered to the patient at home. If so and her oxygen needs can be met at home she can be dismissed from the hospital and follow-up with her outpatient medical anthropologist at [facility] Admission and Anticipated Discharge Date Admission Date: June 30, 2024 Subjective Patient seen and examined. EMR reviewed. Patient reports that she feels somewhat better. She continues to note increasing oxygen requirement with minimal physical activity. She is having minimal cough. Her lower extremity edema is improved. She denies fevers chills night sweats or other constitutional symptoms Review of Systems 2 Review of Systems: All systems reviewed & are unremarkable except as noted in Subjective Physical Exam 2 Constitutional: WD/WN, vitals as above Neck: trachea midline, no thyromegaly Respiratory: no labored breathing, no cough and not tachypneic A uscultation: + crackles and + bronchovesicular breath sounds Cardiovascular: RRR, no murmur, no edema Gastrointestinal (Abdomen): normal bowel sounds, soft, nontender, no hepatosplenomegaly Musculoskeletal: Extremities: extremities normal to inspection Skin: no rashes, warm and dry Neurologic: Nonfocal exam Lymphatic: no cervical lymphadenopathy Results & Data Results & Data Vital Signs (Past 12 Hours) Vital Signs Temp Pulse Resp BP Pulse Ox O2 Del Method O2 Del Method 07/04/24 10:46 36.5 C 79 18 146/91 H 90 Nasal Cannula 07/04/24 10:12 93 Nasal Cannula 07/04/24 08:46 94 Nasal Cannula 07/04/24 07:39 36.7 C 77 20 164/96 H 90 Nasal Cannula 07/04/24 07:17 88 18 91 Nasal Cannula 07/04/24 03:00 36.6 C 79 18 159/77 H 92 Nasal Cannula 07/04/24 01:00 High Flow Nasal Cannula 07/03/24 23:27 80 18 166/90 H 91 Nasal Cannula O2 Flow Rate 07/04/24 10:46 5 07/04/24 10:12 4 07/04/24 08:46 8 07/04/24 07:39 5 07/04/24 07:17 4 07/04/24 03:00 5 07/04/24 01:00 07/03/24 23:27 5 Laboratory Results 07/04/24 06:48 07/04/24 06:48 Diagnostic Findings No new imaging PG Care Time/CCT Total # of Minutes Spent Total Time Spent with Patient: Total time spent is greater than 50% in coordination of care (as documented) at patient's floor/unit and/or counseling patient: Coding Level of Care Code 62840 SUB INP/OBS CARE MIN Diagnoses 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
[2024-07-04] MEDS: SULFAMETHOXAZOLE/TRIMETHOPRIM DS 800/160MG TAB PO SCH (12:07)
[2024-07-04] MEDS: predniSONE 20 MG TAB PO SCH (12:07)
[2024-07-04] MEDS: acetaZOLAMIDE 250 MG TAB PO SCH (12:08)
--- NOTE | 2024-07-04 13:14 | Cardiology Progress Note ---
Date of Service July 04, 2024 Assessment & Plan (1) Acute respiratory failure with hypoxia: (2) Pulmonary fibrosis: (3) CHF (congestive heart failure): (4) Right heart failure due to pulmonary hypertension: (5) Chest pain: Plan 1. Respiratory failure: I believe this is primarily pulmonary in etiology, although there does appear to be a component of left heart failure. I suspect it is on the basis of volume overload due to dietary indiscretion. That seems to have improved somewhat although remains poor. 2. Pulmonary fibrosis: This is probably the main pulmonary problem that she has and has caused longstanding dyspnea. 3. Congestive heart failure: She appears to have some degree of left heart failure which I believe is due to volume overload from excessive fluid intake (which she describes drinking fluid due to dry mouth). She does have right heart failure as well which is described below. Other than diuresis there is no treatment indicated for her left heart failure. Her weight really has not dropped significantly during hospitalization even though she is on a diuretic, she does not seem to understand her fluid restriction and may be taking in excess water (mostly ice). Based on her BUN she is becoming prerenal although her creatinine has not changed. I am not sure how much better we can get her fluid status. 4. Right heart failure: She has decreased right ventricular function as well as an elevated right atrial size and right ventricular dilatation all consistent with right ventricular pressure overload, and she has pulmonary hypertension. I suspect that the right heart failure is a recent problem, possibly her pulmonary hypertension (which is most likely due to her lung disease) led to recent right ventricular dysfunction or she has been drinking enough fluid that she now has right and left heart failure. She will probably have to live with some degree of a dry mouth and will need to be on a fluid restriction. A bit of pedal edema may be necessary to avoid having her too prerenal. 5. Chest discomfort: This is very atypical, I do not believe it is cardiac in nature. Admission and Anticipated Discharge Date Admission Date: June 30, 2024 Subjective She is feeling better today, she feels that her legs are almost back to normal although she is still notes some pedal edema. She has not complaining of shortness of breath and she is sitting on the side of her bed. She has not been very active this admission. Physical Exam Physical Exam: Constitutional: Alert, cooperative and in no distress. She is resting in bed. HEENT: Unremarkable Neck: No jugular venous distention, carotid pulses are normal and equal bilaterally without bruits. Pulmonary: Expiratory wheezing bilaterally, crackles throughout. Cardiac: Regular rhythm with no murmur, gallop or rub. Abdomen: Soft, nontender with normal bowel sounds. Extremities: +2 pitting pedal edema on the left, +1 on the right. No significant pretibial edema. Neurologic: No focal findings. Skin: No rash, ecchymoses or petechiae. Results & Data Vital Signs (Past 12 Hours) Vital Signs Temp Pulse Resp BP Pulse Ox O2 Del Method O2 Del Method 07/04/24 10:12 93 Nasal Cannula 07/04/24 08:46 94 Nasal Cannula 07/04/24 07:39 36.7 C 77 20 164/96 H 90 Nasal Cannula 07/04/24 07:17 88 18 91 Nasal Cannula 07/04/24 03:00 36.6 C 79 18 159/77 H 92 Nasal Cannula 07/04/24 01:00 High Flow Nasal Cannula 07/03/24 23:27 80 18 166/90 H 91 Nasal Cannula O2 Flow Rate 07/04/24 10:12 4 07/04/24 08:46 8 07/04/24 07:39 5 07/04/24 07:17 4 07/04/24 03:00 5 07/04/24 01:00 07/03/24 23:27 5 Laboratory Results Cardiac Enzymes 07/04/24 Range/Units 06:48 AST 23 (13-39) U/L CBC 07/04/24 Range/Units 06:48 WBC 6.88 (4.8-10.8) K/ul RBC 5.04 (4.20-5.40) M/uL Hgb 15.4 (12.0-16.0) g/dl Hct 47.3 H (37.0-47.0) % Plt Count 189 (130-400) K/uL Comprehensive Metabolic Panel 07/04/24 Range/Units 06:48 Sodium 140 (136-145) mmol/L Potassium 4.7 (3.5-5.1) mmol/L Chloride 96 L (98-107) mmol/L Carbon Dioxide 41 H* (21-32) mmol/L BUN 33 H (6-23) mg/dl Creatinine 0.97 (0.6-1.2) mg/dl Glucose 77 (70-99(Fasting)) mg/dl Calcium 8.8 (8.6-10.3) mg/dl Direct Bilirubin 0.2 (0-0.2) mg/dl AST 23 (13-39) U/L ALT 11 (7-52) U/L Alkaline Phosphatase 55 (34-104) U/L Total Protein 6.4 (6.0-8.3) gm/dl Albumin 3.7 (3.4-5.0) gm/dl Intake and Output 07/03/24 07/04/24 07/04/24 22:59 06:59 14:59 Intake Total 240 / 1738 50 / 1738 Output Total 501 / 4001 1400 / 4001 500 / 500 Balance -261 / -2263 -1350 / -2263 -500 / -500 Intake: Oral 240 / 1738 50 / 1738 Output: Urine 500 / 4000 1400 / 4000 500 / 500 # Bowel Movements 1 / Other: # Unmeasured Voids 0 Diagnostic Findings Telemetry: Sinus rhythm, rate around 100 bpm. PG Care Time/CCT Total # of Minutes Spent Total Time Spent with Patient: Total time spent is greater than 50% in coordination of care (as documented) at patient's floor/unit and/or counseling patient: Coding Level of Care Code 87829 SUB INP/OBS CARE 2/35MIN Diagnoses Acute respiratory failure with hypoxia J96.01 Pulmonary fibrosis J84.10 CHF (congestive heart failure) I50.9 Heart failure chronicity: acute Heart failure type: unspecified Right heart failure due to pulmonary hypertension I27.29; I50.810 Chest pain R07.9 (3) CHF (congestive heart failure) Heart failure chronicity: acute Heart failure type: unspecified Qualified Code(s): I50.9 - Heart failure, unspecified
[2024-07-04] MEDS: acetaZOLAMIDE 250 MG in SYRINGE 0 ML IV STA (13:18)
[2024-07-04 16:39] LABS: BUN Creatinine Ratio 28.6 (10-20); Calcium 9.9 mg/dl (8.6-10.3); Creatinine Clr Calc Pharmacy 44.5 ml/min; Potassium 4.6 mmol/L (3.5-5.1)
[2024-07-04] MEDS: hydrALAZINE HCL 20 MG/ML VIAL IV ONE (16:56)
--- NOTE | 2024-07-04 22:24 | Hospitalist Progress Note ---
Date of Service July 04, 2024 Assessment & Plan (1) Acute respiratory failure with hypoxia: (2) Pulmonary fibrosis: (3) Rhinovirus infection: (4) COPD exacerbation: (5) CHF (congestive heart failure): (6) RUQ pain: Plan The patient is a 58-year-old female with a past medical history including hypertension, peripheral neuropathy, CHF, rheumatoid arthritis, COPD, pulmonary fibrosis, GERD, obstructive sleep apnea, muscle spasm, and anxiety. She was hospitalized in May in [facility], due to pulmonary issues. She reports that over the past several days she has had worsening shortness of breath, lower extremity edema, increased need for oxygen and presents to the ED at [facility] for assessment. #Acute respiratory failure with hypoxia- Combination of COPD exacerbation, rhinovirus infection and CHF exacerbation Bipap -> 5L NC on 3L NC at baseline; attempt to titrate O2 to baseline currently on 5 liters, not at baseline. Now with metabolic aklaosis, ordered acetazolamide 250 mg IV x1 [employer] ordered an additional oral acetazolamide. #COPD exacerbation/rhinovirus infection/pulmonary fibrosis- methylprednisolone 40 mg IV Q8H -> decrease to 40 IV BID as per pulm recommendations Azithromycin 500 mg IV daily added Mucinex 60 mg p.o. every 12 hours Duonebs every 4 hours while awake and every 2 hours when necessary Continue Trelegy Ellipta added incentive spirometry and flutter valve added isolation precautions Pulmonology consult Pulmonary hypertension playing a role. #CHF exacerbation- Echo ordered - normal systolic function, grade 1 diastolic dysfunction, EF 55 to 60% cardiology consulted BNP 1866 on admission troponin downtrended received lasix on 07/04 but due to metabolic alkalosis, this will be held. electrolytes replete; continue to trend with IV diuresis strict I&O's change diet to heart healthy, Low Na added TEDs, promote leg elevation #pericholecystic fluid- Chest CTA showed questionable cholecystic fluid, consider further eval with gallbladder ultrasound bilirubin (0.7) and liver enzymes WNL patient endorses in intermittent sharp RUQ pain x 2-3 months; tender to palpation on exam stated she had normal EGD 2-3 months ago gallbladder US ordered - cholelithiasis, no acute cholecystitis can consider nuclear medicine hepatobiliary scan Noninfectious at this time, afebrile with no leukocytosis trend CMP Chronic medical issues: #Rheumatoid arthritis- On Enbrel as an outpatient, continue ibuprofen prn and modafinil #Chronic pain- Previously had been on narcotic medications Continue Suboxone TID and methocarbamol #VINOD- Cpap HS ordered Request for patient records to [facility] has been sent VTE ppx: Heparin Diet: heart healthy, low Na Dispo: continue inpatient PCU status, pending cardiology and pulm consults, continue IV steroids and IV Lasix 40 Mg daily, titrate O2 as tolerated to baseline 3L discussed with case management Admission and Anticipated Discharge Date Admission Date: June 30, 2024 Subjective Patient continues to have shortness of breath. Physical Exam Physical Exam: The patient is awake, alert and oriented 3, in no acute distress. Non-toxic appearing. HEENT- EOMI, mucous membranes moist. Hearing grossly intact. Heart-normal S1 and S2. No murmurs, rubs or gallops. Lungs-crackles bilaterally, now with wheezing, no respiratory distress, no accessory muscle use. Abdomen-normal bowel sounds and soft. No ascites noted. Tender to deep palpation of RUQ. Extremities- no clubbing, cyanosis. +1 pitting edema BL LE. Results & Data Results & Data Vital Signs (Past 12 Hours) Vital Signs Temp Pulse Resp BP BP Pulse Ox O2 Del Method 07/04/24 19:20 36.7 C 81 18 153/95 H 95 Nasal Cannula 07/04/24 19:15 75 18 96 Nasal Cannula 07/04/24 17:48 93 H 170/93 H 91 Nasal Cannula 07/04/24 16:29 90 Nasal Cannula 07/04/24 15:57 36.4 C L 84 16 200/111 H 89 L Nasal Cannula 07/04/24 10:46 36.5 C 79 18 146/91 H 90 Nasal Cannula O2 Flow Rate 07/04/24 19:20 4 07/04/24 19:15 4 07/04/24 17:48 5 07/04/24 16:29 5 07/04/24 15:57 5 07/04/24 10:46 5 PG Care Time/CCT Total # of Minutes Spent Total Time Spent with Patient: Total time spent is greater than 50% in coordination of care (as documented) at patient's floor/unit and/or counseling patient: Coding Level of Care Code 12609 SUB INP/OBS CARE 3/50MIN Diagnoses Acute respiratory failure with hypoxia J96.01 Pulmonary fibrosis J84.10 Rhinovirus infection B34.8 COPD exacerbation J44.1 CHF (congestive heart failure) I50.9 Heart failure chronicity: acute Heart failure type: unspecified RUQ pain R10.11 (5) CHF (congestive heart failure) Heart failure chronicity: acute Heart failure type: unspecified Qualified Code(s): I50.9 - Heart failure, unspecified
[2024-07-05 08:06] LABS: Hematocrit (blood only) 47.4 % (37.0-47.0); Hemoglobin 15.5 g/dl (12.0-16.0); Mean Corpuscular Hemoglobin 30.6 pg (25.0-34.0); Mean Corpuscular Hgb Conc 32.7 g/dL (32.0-36.0); Mean Corpuscular Volume 93.5 fL (80.0-100.0); Mean Platelet Volume 11.2 fL (9.4-12.4); Platelet Count 196 K/uL (130-400); RDW Coefficient of Variation 16.8 % (11.5-14.5); RDW Standard Deviation 57.1 fL (36.4-46.3); Red Blood Count 5.07 M/uL (4.20-5.40); White Blood Count 8.82 K/ul (4.8-10.8)
[2024-07-05 08:32] LABS: Anion Gap 6 (3-11); BUN Creatinine Ratio 32.3 (10-20); Blood Urea Nitrogen 42 mg/dl (6-23); C Reactive Protein < 0.50 mg/dl (0-0.5); Calcium 9.9 mg/dl (8.6-10.3); Carbon Dioxide 36 mmol/L (21-32); Chloride 97 mmol/L (98-107); Creatinine Clr Calc Pharmacy 43.1 ml/min; Glucose 82 mg/dl (70-99(Fasting)); Potassium 4.2 mmol/L (3.5-5.1); Sodium 139 mmol/L (136-145)
[2024-07-05] MEDS: acetaZOLAMIDE 250 MG in SYRINGE 0 ML IV STA (08:55)
[2024-07-05] MEDS: acetaZOLAMIDE 250 MG TAB PO ONE (18:00)
--- NOTE | 2024-07-05 22:39 | Hospitalist Progress Note ---
Date of Service July 05, 2024 Assessment & Plan (1) Acute respiratory failure with hypoxia: (2) Pulmonary fibrosis: (3) Rhinovirus infection: (4) COPD exacerbation: (5) CHF (congestive heart failure): (6) RUQ pain: Plan The patient is a 58-year-old female with a past medical history including hypertension, peripheral neuropathy, CHF, rheumatoid arthritis, COPD, pulmonary fibrosis, GERD, obstructive sleep apnea, muscle spasm, and anxiety. She was hospitalized in May in [facility], due to pulmonary issues. She reports that over the past several days she has had worsening shortness of breath, lower extremity edema, increased need for oxygen and presents to the ED at [facility] for assessment. #Acute respiratory failure with hypoxia- Combination of COPD exacerbation, rhinovirus infection and CHF exacerbation Bipap -> 5L NC on 3L NC at baseline; attempt to titrate O2 to baseline currently on 4 liters, not at baseline. Now with metabolic aklaosis, ordered acetazolamide 250 mg iv in am and PO in evening on 07/05 metabolic alkalosis appears to be improving. #COPD exacerbation/rhinovirus infection/pulmonary fibrosis- methylprednisolone 40 mg IV Q8H -> decrease to 40 IV BID;now transitioned to oral prednisone. Azithromycin 500 mg IV daily added Mucinex 60 mg p.o. every 12 hours Duonebs every 4 hours while awake and every 2 hours when necessary Continue Trelegy Ellipta added incentive spirometry and flutter valve added isolation precautions Pulmonology consult Pulmonary hypertension playing a role. #CHF exacerbation- Echo ordered - normal systolic function, grade 1 diastolic dysfunction, EF 55 to 60% cardiology consulted BNP 1866 on admission troponin downtrended received lasix on 07/04 but due to metabolic alkalosis, this will be held. electrolytes replete; continue to trend with IV diuresis strict I&O's change diet to heart healthy, Low Na added TEDs, promote leg elevation #pericholecystic fluid- Chest CTA showed questionable cholecystic fluid, consider further eval with gallbladder ultrasound bilirubin (0.7) and liver enzymes WNL patient endorses in intermittent sharp RUQ pain x 2-3 months; tender to palpation on exam stated she had normal EGD 2-3 months ago gallbladder US ordered - cholelithiasis, no acute cholecystitis can consider nuclear medicine hepatobiliary scan Noninfectious at this time, afebrile with no leukocytosis trend CMP Chronic medical issues: #Rheumatoid arthritis- On Enbrel as an outpatient, continue ibuprofen prn and modafinil #Chronic pain- Previously had been on narcotic medications Continue Suboxone TID and methocarbamol #VINOD- Cpap HS ordered [facility] has been sent VTE ppx: Heparin Diet: heart healthy, low Na Dispo: continue inpatient PCU status, titrate O2 as tolerated to baseline 3L discussed with case management on 07/05 Admission and Anticipated Discharge Date Admission Date: June 30, 2024 Subjective Patient reports feeling slightly better today. She has no new complaints. Physical Exam Physical Exam: The patient is awake, alert and oriented 3, in no acute distress. Non-toxic appearing. HEENT- EOMI, mucous membranes moist. Hearing grossly intact. Heart-normal S1 and S2. No murmurs, rubs or gallops. Lungs-crackles bilaterally, now with wheezing, no respiratory distress, no accessory muscle use. Abdomen-normal bowel sounds and soft. No ascites noted. Tender to deep palpation of RUQ. Extremities- no clubbing, cyanosis. +1 pitting edema BL LE. Results & Data Results & Data Vital Signs (Past 12 Hours) Vital Signs Temp Pulse Resp BP Pulse Ox O2 Del Method O2 Flow Rate 07/05/24 20:03 76 18 94 Nasal Cannula 4 07/05/24 19:53 36.5 C 88 20 128/74 96 Nasal Cannula 4 07/05/24 16:00 36.5 C 96 H 18 138/72 98 Nasal Cannula 4 07/05/24 12:07 36.6 C 88 20 129/68 97 Nasal Cannula 4 PG Care Time/CCT Total # of Minutes Spent Total Time Spent with Patient: Total time spent is greater than 50% in coordination of care (as documented) at patient's floor/unit and/or counseling patient: Coding Level of Care Code 21302 SUB INP/OBS CARE 3/50MIN Diagnoses Acute respiratory failure with hypoxia J96.01 Pulmonary fibrosis J84.10 Rhinovirus infection B34.8 COPD exacerbation J44.1 CHF (congestive heart failure) I50.9 Heart failure chronicity: acute Heart failure type: unspecified RUQ pain R10.11 (5) CHF (congestive heart failure) Heart failure chronicity: acute Heart failure type: unspecified Qualified Code(s): I50.9 - Heart failure, unspecified
[2024-07-06 07:15] LABS: Hematocrit (blood only) 44.8 % (37.0-47.0); Hemoglobin 14.4 g/dl (12.0-16.0); Mean Corpuscular Hemoglobin 30.3 pg (25.0-34.0); Mean Corpuscular Hgb Conc 32.1 g/dL (32.0-36.0); Mean Corpuscular Volume 94.3 fL (80.0-100.0); Mean Platelet Volume 11.8 fL (9.4-12.4); Platelet Count 188 K/uL (130-400); RDW Coefficient of Variation 16.6 % (11.5-14.5); RDW Standard Deviation 57.2 fL (36.4-46.3); Red Blood Count 4.75 M/uL (4.20-5.40); White Blood Count 7.75 K/ul (4.8-10.8)
[2024-07-06 07:32] VITALS: TEMP 97.3
[2024-07-06 07:36] LABS: Anion Gap 7 (3-11); BUN Creatinine Ratio 36.2 (10-20); Blood Urea Nitrogen 46 mg/dl (6-23); C Reactive Protein < 0.50 mg/dl (0-0.5); Calcium 9.5 mg/dl (8.6-10.3); Carbon Dioxide 30 mmol/L (21-32); Chloride 101 mmol/L (98-107); Creatinine Clr Calc Pharmacy 44.2 ml/min; Glucose 81 mg/dl (70-99(Fasting)); Potassium 3.5 mmol/L (3.5-5.1); Sodium 138 mmol/L (136-145)
[2024-07-06 09:03] LABS: Alanine Aminotransferase 15 U/L (7-52); Albumin Level 3.8 gm/dl (3.4-5.0); Alkaline Phosphatase 55 U/L (34-104); Aspartate Aminotransferase 22 U/L (13-39); Bilirubin Direct 0.2 mg/dl (0-0.2); Bilirubin,Total 0.6 mg/dl (0.2-1.0); Total Protein 6.2 gm/dl (6.0-8.3)
[2024-07-06 10:50] VITALS: BP 117/77
--- NOTE | 2024-07-06 13:24 | XRay Report ---
XR chest 2V PA/lateral CLINICAL HISTORY: hypoxia COMPARISON STUDY: 06/30/2024 FINDINGS: Heart size and pulmonary vasculature are normal. There are stable lung base pulmonary inter stitial opacities. No new consolidation or pleural effusion. No pneumothorax. IMPRESSION: Stable exam with lung base interstitial lung disease or interstitial pneumonia. ACT 112: Negative or not required by law. Electronically signed by: Octavio Zeng M.D. 07/06/2024 1:22 PM
[2024-07-06 15:08] VITALS: PULSE 74; RESP 18; O2SAT 92
--- NOTE | 2024-07-06 15:28 | Discharge Summary ---
Discharge Summary Date of Service July 06, 2024 Principal Dx & Hospital Course #1 = Principal Diagnosis (1) Acute respiratory failure with hypoxia: (2) Pulmonary fibrosis: (3) Rhinovirus infection: (4) COPD exacerbation: (5) CHF (congestive heart failure): (6) RUQ pain: Plan The patient is a 58-year-old female with a past medical history including hypertension, peripheral neuropathy, CHF, rheumatoid arthritis, COPD, pulmonary fibrosis, GERD, obstructive sleep apnea, muscle spasm, and anxiety. She was hospitalized in May in [facility], due to pulmonary issues. She reports that over the past several days she has had worsening shortness of breath, lower extremity edema, increased need for oxygen and presents to the ED at [facility] for assessment. #Acute respiratory failure with hypoxia- Combination of COPD exacerbation, rhinovirus infection and CHF exacerbation Bipap -> 5L NC on 3L NC at baseline; attempt to titrate O2 to baseline currently on 4 liters. acetazolamide to treat metabolic acidosis. requires 5 liters on ambulation. metabolic alkalosis improved. will need to f.u with pulm #COPD exacerbation/rhinovirus infection/pulmonary fibrosis- methylprednisolone 40 mg IV Q8H -> decrease to 40 IV BID;now transitioned to oral prednisone. Azithromycin 500 mg IV daily added Mucinex 60 mg p.o. every 12 hours Duonebs every 4 hours while awake and every 2 hours when necessary Continue Trelegy Ellipta added incentive spirometry and flutter valve added isolation precautions Pulmonology consult Pulmonary hypertension playing a role. #CHF exacerbation- Echo ordered - normal systolic function, grade 1 diastolic dysfunction, EF 55 to 60% cardiology consulted BNP 1866 on admission troponin downtrended received lasix on 07/04 but due to metabolic alkalosis, this will be held. electrolytes replete; continue to trend with IV diuresis strict I&O's change diet to heart healthy, Low Na added TEDs, promote leg elevation #pericholecystic fluid- Chest CTA showed questionable cholecystic fluid, consider further eval with gallbladder ultrasound bilirubin (0.7) and liver enzymes WNL patient endorses in intermittent sharp RUQ pain x 2-3 months; tender to palpation on exam stated she had normal EGD 2-3 months ago gallbladder US ordered - cholelithiasis, no acute cholecystitis can consider nuclear medicine hepatobiliary scan Noninfectious at this time, afebrile with no leukocytosis Chronic medical issues: #Rheumatoid arthritis- On Enbrel as an outpatient, continue ibuprofen prn and modafinil #Chronic pain- Previously had been on narcotic medications Continue Suboxone TID and methocarbamol #VINOD- Cpap HS ordered Admission HPI Per Admitting Provider The patient is a 58-year-old female with a past medical history including hypertension, peripheral neuropathy, CHF, rheumatoid arthritis, COPD, pulmonary fibrosis, GERD, obstructive sleep apnea, muscle spasm, and anxiety. She was hospitalized in May in [facility], due to pulmonary issues. She reports that over the past several days she has had worsening shortness of breath, lower extremity edema, increased need for oxygen and presents to the ED at [facility] for assessment. Discharge Exam The patient is awake, alert and oriented 3, in no acute distress. Non-toxic appearing. HEENT- EOMI, mucous membranes moist. Hearing grossly intact. Heart-normal S1 and S2. No murmurs, rubs or gallops. Lungs-crackles bilaterally, now with wheezing, no respiratory distress, no accessory muscle use. Abdomen-normal bowel sounds and soft. No ascites noted. Tender to deep palpation of RUQ. Extremities- no clubbing, cyanosis. +1 pitting edema BL LE. Discharge Plan Discharge Items Patient Disposition: Home - Self-Care Reason For Visit: ACUTE RESP FAILURE WITH HYPOXIA, CHF, COPD, RHINOV Discharge Diagnosis: Acute resp. failure. CHF, COPD Condition on Discharge: Serious Activity: Resume your previous activity Non-emergency contact: Primary Care Provider Call non-emergency contact if: you have any medication questions Follow-up/Referrals: Narciso Castaneda DO [Primary Care Provider] - 07/16/24 1:50 pm (Hospital follow up scheduled July 16 at 1:50) Lexi Wilks PA-C [Physician Paint Stockman] - 07/13/24 10:30 am Diet: Regular Addtl Attending Provider Instructions: recommend followup with PCP, pulmonary provider within 2 weeks. Your PCP and county bailiff should set you up with a transplant center at discharge if you qualify. You will take azithromcyin once tonight. Take lasix once a day Tuesday and Tuesday with potassium. Pending Studies at Discharge: No Stand-Alone Forms: My [facility], Smoking Cessation Medications and DC Order Prescriptions: New sulfamethoxazole-trimethoprim [Bactrim DS] 800-160 mg Tablet 1 tab PO MoWeFr@[id number] Qty: 15 0RF gabapentin 300 mg Capsule 900 mg PO TID 14 Days Qty: 126 0RF prednisone 20 mg Tablet 40 mg PO DAILY Qty: 30 0RF azithromycin 250 mg tablet 250 mg PO PM Qty: 1 0RF furosemide 40 mg tablet 40 mg PO MOWEFR Qty: 14 0RF potassium chloride 10 mEq tablet extended release 10 meq PO MOWEFR Qty: 15 0RF Continued silver sulfadiazine 1 % cream 1 applic TOPICAL DAILY nicotine 14 mg/24 hr patch 24 hour 1 patch transdermal DAILY ipratropium-albuterol 0.5 mg-3 mg(2.5 mg base)/3 mL solution for nebulization 3 ml INHALATION Q4H PRN (Reason: breath) ibuprofen 800 mg tablet 800 mg PO Q8H PRN (Reason: Pain) alendronate 70 mg tablet 70 mg PO WK sennosides-docusate sodium [Senexon-S] 8.6-50 mg tablet 2 tab PO DAILY PRN (Reason: therapy) omeprazole 40 mg capsule,delayed release(DR/EC) 40 mg PO DAILY leflunomide 20 mg tablet 20 mg PO DAILY lidocaine-prilocaine 2.5-2.5 % cream 1 applic topical BID modafinil 200 mg tablet 200 mg PO QAM methocarbamol 750 mg tablet 750 mg PO TID losartan 25 mg tablet 25 mg PO DAILY buspirone 7.5 mg tablet 7.5 mg PO BID ergocalciferol (vitamin D2) 1,250 mcg (50,000 unit) capsule 1,250 unit PO DAILY Enbrel SureClick 50 mg/mL (1 mL) pen injector 50 mg SUBCUT WK Ofev 150 mg capsule 150 mg PO BID Trelegy Ellipta 100-62.5-25 mcg blister with device 1 inh INHALATION DAILY bisoprolol fumarate 5 mg tablet 5 mg PO DAILY Discharge Orders: Discharge Order (Routine); Ordered 07/06/24 Ordered By: Manpreet Brooks/Other Patient Handouts: Taking a Diuretic, Chronic Lung Disease Avoid These Admission Data Admit Date/Time: 06/30/24 22:19 Attending Provider: Manpreet Vargas Admit Provider: Jimmy Shah Primary Care Provider: Narciso Castaneda Other Providers: Filemon Sal; Do Avalos; Fernandez Mai; Aung Cano Other Interventions: Discharge Summary Assessment (RN) Last Done: 07/06/24 15:07 Hospital Stay Data Consultations 06/30/24 20:56 ED Decision to Admit Stat 06/30/24 23:55 Consult Cardiology Routine 07/01/24 05:21 Consult Pulmonology Routine 07/05/24 16:42 HIM [Consult Health Information Management] Routine 07/06/24 15:23 [facility] CHF Program Referral Routine Diagnostic Imagining Performed 06/30/24 19:11 US venous doppler LE BI Stat 06/30/24 20:08 CT angio chest PE protocol Stat 07/01/24 09:32 US gallbladder Routine Pending Results Patient Have Any Pending Studies at Discharge: No Discharge Instructions Given to Patient (Per Discharging Provider) recommend followup with PCP, pulmonary provider within 2 weeks. Your PCP and county bailiff should set you up with a transplant center at discharge if you qualify. You will take azithromcyin once tonight. Take lasix once a day Tuesday and Tuesday with potassium. Total Time Total Time Spent Total Time Spent (In Minutes): 32 Coding Level of Care Code 13529 INP/OBS DISCH >30 MIN Diagnoses Acute respiratory failure with hypoxia J96.01 Pulmonary fibrosis J84.10 Rhinovirus infection B34.8 COPD exacerbation J44.1 CHF (congestive heart failure) I50.9 Heart failure chronicity: acute Heart failure type: unspecified RUQ pain R10.11
== END 2024-07-06 17:06 | disposition home or self-care (01) | DRG 189 ==
LOC: ED 18:35 → SUATTDRO 22:19 → EDINP 22:19 → 2S 07-01 15:34
DX: R07.89 Other chest pain; Z79.61 Long term (current) use of immunomodulator; I27.23 Pulmonary hypertension due to lung diseases and hypoxia; E87.3 Alkalosis; M06.9 Rheumatoid arthritis, unspecified; G62.9 Polyneuropathy, unspecified; B34.8 Other viral infections of unspecified site; Z99.81 Dependence on supplemental oxygen; G89.29 Other chronic pain; J44.1 Chronic obstructive pulmonary disease with (acute) exacerbation; I11.0 Hypertensive heart disease with heart failure; J43.9 Emphysema, unspecified; Z79.51 Long term (current) use of inhaled steroids; Z79.620 Long term (current) use of immunosuppressive biologic; F41.9 Anxiety disorder, unspecified; Z82.5 Family history of asthma and other chronic lower respiratory diseases; I50.814 Right heart failure due to left heart failure; E83.42 Hypomagnesemia; Z79.891 Long term (current) use of opiate analgesic; K80.20 Calculus of gallbladder without cholecystitis without obstruction; J96.21 Acute and chronic respiratory failure with hypoxia; B34.1 Enterovirus infection, unspecified; Z87.891 Personal history of nicotine dependence; Z79.899 Other long term (current) drug therapy; Z79.83 Long term (current) use of bisphosphonates; G47.33 Obstructive sleep apnea (adult) (pediatric); J84.10 Pulmonary fibrosis, unspecified; K21.9 Gastro-esophageal reflux disease without esophagitis

== ENCOUNTER 2024-09-30 19:48 | Inpatient (IN) ==
[2024-09-30] MEDS: ONDANSETRON INJ 2 MG/ML 2 ML VIAL IV STA (20:32)
[2024-09-30] MEDS: methylPREDNISolone 125 MG/2 ML VIAL IV STA (20:32)
[2024-09-30] MEDS: MoRPHine SULFATE 2 MG/ML CARP IV STA (20:32)
[2024-09-30] MEDS: ALBUT/IPRATROP 3MG/0.5MG NEB 3 ML VIAL INH STA (20:33)
[2024-09-30] MEDS: SODIUM CHLORIDE 0.9% 500 ML IV ONE (20:39)
[2024-09-30 20:42] LABS: iSTAT Creatinine 2.9 mg/dl (0.6-1.3); iSTAT Ionized Calcium 0.74 mmol/l (1.12-1.32); iSTAT Potassium 4.5 mmol/L (3.3-5.0)
[2024-09-30 20:44] LABS: Base Excess VBG -5.3 mEq/L; HCO3 VBG 22 mmol/L; Oxygen Saturation VBG < 60.0 %; PCO2 VBG 49 mmHg (38-50); PO2 VBG 28 mmHg; pH VBG 7.26 (7.36-7.41)
[2024-09-30 20:49] LABS: Hemoglobin 15.8 g/dl (12.0-16.0); Mean Corpuscular Hgb Conc 34.3 g/dL (32.0-36.0); Mean Corpuscular Volume 87.3 fL (80.0-100.0); Mean Platelet Volume 12.2 fL (9.4-12.4); Platelet Count 182 K/uL (130-400); RDW Coefficient of Variation 15.6 % (11.5-14.5); Red Blood Count 5.27 M/uL (4.20-5.40)
[2024-09-30 20:59] LABS: Albumin Globulin Ratio 1.4 (0.9-2); Albumin Level 4.4 gm/dl (3.4-5.0); BUN Creatinine Ratio 29.2 (10-20); Calcium 9.6 mg/dl (8.6-10.3); Creatinine Clr Calc Pharmacy 24.4 ml/min; Globulin 3.1 gm/dl (2.5-4.0); Magnesium 2.1 mg/dl (1.7-2.4); Potassium 4.5 mmol/L (3.5-5.1); Total Protein 7.5 gm/dl (6.0-8.3)
[2024-09-30 21:14] LABS: INR 1.5 (0.9-1.1); Partial Thromboplastin Ratio 1.1; Partial Thromboplastin Time 29 Seconds (21-31); Prothrombin Time 15.8 Seconds (9.0-12.0)
[2024-09-30 21:26] LABS: Troponin I High Sensitivity 625.5 pg/ml (0-14)
[2024-09-30] MEDS: ASPIRIN 300 MG SUPP PR ONE (21:48)
[2024-09-30 21:52] LABS: Basophils # (auto) 0.01 K/uL (0.00-0.20); Basophils % (auto) 0.1 %; Eosinophils # (auto) 0.01 K/uL (0.00-0.50); Eosinophils % (auto) 0.1 %; Immature Granulocytes # (auto) 0.13 K/uL (0.01-0.20); Immature Granulocytes % (auto) 0.7 %; Lymphocytes # (auto) 2.07 K/uL (1.20-3.40); Lymphocytes % (auto) 11.7 %; Monocytes # (auto) 0.87 K/uL (0.11-0.59); Monocytes % (auto) 4.9 %; Neutrophils # (auto) 14.66 K/uL (1.40-6.50); Neutrophils % (auto) 82.5 %; Nucleated RBC # (auto) 0.03 K/uL (0.00-0.12); Nucleated RBC % (auto) 0.2 %; Polychromasia 1+; Toxic Vacuolation 1+; White Blood Count 17.75 K/ul (4.8-10.8)
--- NOTE | 2024-09-30 23:05 | CT Scan Report ---
Exam(s): CT ABDOMEN + PELVIS Without Contrast EXAM: CT Abdomen and Pelvis Without Intravenous Contrast CLINICAL HISTORY: Reason for exam: R should pain, hypoxia, elevated LFTS. TECHNIQUE: Axial computed tomography images of the abdomen and pelvis without intravenous contrast. CTDI is 14 mGy and DLP is 840 mGy-cm. Automated exposure control was utilized for the study. A dose lowering technique was utilized adhering to the principles of ALARA. COMPARISON: No relevant prior studies available. FINDINGS: Lung bases: Fibrotic changes at the lung bases. ABDOMEN: Liver: Hepatic steatosis. Gallbladder and bile ducts: Unremarkable. No calcified stones. No ductal dilation. Pancreas: Unremarkable. No ductal dilation. Spleen: Unremarkable. No splenomegaly. Adrenals: Unremarkable. No mass. Kidneys and ureters: Unremarkable. No obstructing stones. No hydronephrosis. Stomach and bowel: Diverticulosis. No bowel obstruction. No mucosal thickening. PELVIS: Appendix: Appendix not identified. No secondary signs of appendicitis. Bladder: Unremarkable. No stones. Reproductive: Hysterectomy. ABDOMEN and PELVIS: Intraperitoneal space: Unremarkable. No free fluid or free air. Bones/joints: No acute fracture or dislocation. L4-S1 posterior decompression and posterior hardware fixation with solid osseous fusion posteriorly. Soft tissues: Unremarkable. Vasculature: Atherosclerosis. No abdominal aortic aneurysm. Lymph nodes: Unremarkable. No enlarged lymph nodes. IMPRESSION: 1. Hepatic steatosis. 2. No acute findings in the abdomen or pelvis. Electronically signed by: Dread Perry M.D. 09/30/24 23:04 PM
[2024-09-30] MEDS: cefTRIAXone SODIUM 2,000 MG/50 ML BAG IV STA (23:08)
[2024-09-30] MEDS: SODIUM CHLORIDE 0.9% 1,000 ML IV SCH (23:08)
--- NOTE | 2024-09-30 23:10 | History & Physical Report ---
Date of Service September 30, 2024 Assessment & Plan (1) Acute respiratory failure with hypoxia: (2) COPD with emphysema: (3) Melena: (4) Elevated troponin: (5) Dehydration: (6) Sepsis: (7) Acute renal failure: Plan Patient is a 59-year-old female with past medical history of rheumatoid arthritis, COPD with emphysema (baseline oxygen requirement of nasal cannula at 3 lpm), interstitial lung disease, hypertension, GERD, VINOD, and anxiety who was admitted due to AHRF. AHRF // PNA // COPD exacerbation (+) SIRS - Given week of cough, weakness, N/V, and looser stools, possible viral illness versus other respiratory infection triggering exacerbation. However, elevated procal (~10) and CT findings more suggestive for pneumonia as a cause - Meets SIRS criteria given leukocytosis of 17, hypotension, and temp < 36 C; possible source is potential pneumonia noted on chest CT - Given total of 2.5 L NSS boluses and still hypotensive with systolic between high 70s to 80s and diastolic between 50s and 70s. MAP have stayed at 65 or higher - Discussed with ICU given persistent hypotension not responding to fluids concerning for septic shock, and patient to be admitted to ICU - Blood cultures pending - S/p Ceftriaxone x1 in ED (started after blood cultures collected). Will change to Zosyn and Azithromycin after - Oxygen supplementation as needed with goal O2 at 88-92%; currently with HFNC - IS and FV - Duonebs ordered - Continue home inhalers - S/p Solumedrol 60 mg IV in ED; will hold off further steroids given hx of melena and possible UGIB - Monitor am labs Melena - Patient with recent black stool with associated epigastric pain in the setting of N/V, poor PO intake and recent prednisone use - Will place patient NPO - Will trend H&H q6h - NPO - Protonix 80 mg IV bolus then 40 mg IV bid - Hold off of steroids as detailed above; avoid NSAIDs N/V - Noted in the last week but more marked on 09/28-09/29 along with poor PO intake - Could explain electrolyte changes in CMP at time of admission - Zofran ordered prn - NPO for now due to concern for melena Elevated Troponin - No chest pain or other sxs of ischemia - EKG w/o ischemic changes - Peaked at 625.5 - Suspect related to demand ischemia given dehydration, hypotension, and hypoxia - Continue to monitor ANISH - Cr was 0.94 on 07/2024; now at 2.50 - Suspect related to poor PO intake and dehydration/hypotension - NSS boluses given as mentioned above - Monitor am labs HTN - Hold home losartan due to lower BPs and NPO status CHF - TTE from 07/01/2024 showing EF of 55-60%, normal LV systolic function, moderately dilated RV with mildly decreased systolic function, mildly dilated RA, and elevated RV systolic pressure at 55-60 mmHg - Hold home furosemide given dehydration at time of admission - Monitor daily weights and Is/Os Weakness - Noted in the last 1-2 weeks with associated falls - PT/OT Dispo: Admit to ICU Diet: NPO IVF: s/p NSS bolus (total 2.5 L) GI: Protonix 40 mg bid VTE ppx: Heparin FULL CODE History of Present Illness Chief Complaint: SOB Primary Care Provider: Narciso Castaneda DO Patient is a 59-year-old female with past medical history of rheumatoid arthritis, COPD with emphysema (baseline oxygen requirement of nasal cannula at 3 lpm), interstitial lung disease, hypertension, GERD, VINOD, and anxiety who was brought to the emergency department due to noted increasing confusion and shortness of breath. Patient was last noted to be at baseline a little over a week ago when she had traveled to [place] to visit her mother and her granddaughter. After returning home from his trip, patient notes that she had been feeling progressively more short of breath and weak, leading to recurrent falls at home. In addition to this, patient has also been having a cough, nausea/vomiting, looser stools, decreased p.o. intake and hydration (had not eaten or drunk much since Tuesday), patient believes she may have had a fever at home at 1 point but was never quantified. Due to the symptoms, patient had been using once daily home prednisone and attempt to control her symptoms but has not taken this in a few days. Patient's daughter states that patient has been more difficult to get on the phone, and that the patient's friend had called her saying that the patient was not answering, after which her partner had gone to see the patient and noted that she was found on the floor surrounded by feces and vomit. Patient's daughter also notes that yesterday she had a soft bowel movement that was darker/black and also endorses having epigastric pain. Patient is being seen by a new physician in [place] where they have begun discussions for coordination of lung transplant. Patient states that she had an episode of chest pain while she was visiting her family in [place], but has not had this again since then. ED Course: Patient found to be hypoxic with saturation in mid to high 80s was therefore started on oxymask and later progressed to nonrebreather and then HFNC when hypoxia persisted with improvement in oxygen levels. IV Solu-Medrol 60 mg given x 1. Morphine, Zofran, and albuterol given for symptom control. NSS 500 mL bolus given and then started at maintenance rate. ASA 300 mg OR given due to elevated troponin. Ceftriaxone IV x 1 given. Labs/Imaging: CBC with leukocytosis of 17.75 with neutrophilic predominance, hemoglobin is 15.8, platelets at 182. CMP with hyponatremia of 126, normal potassium levels at 4.5, hypochloremia of 85, bicarb within normal limits at 26, elevated creatinine of 2.5. LFTs with elevated AST (117) and ALT (107). Mildly decreased ionized calcium. Lactate elevated at 4.1. Troponin elevated at 625.5 with 2-hour repeat showing 573.1. EKG unremarkable. CTAP showing hepatic steatosis. Chest CT with possible pneumonitis versus developing right-sided PNA. Medical History: [Reviewed] Medications: [Reviewed] Surgical History: [Reviewed] Family history: [Reviewed] Allergies: [Reviewed] Social History: [Reviewed] Code Status: FULL Allergies Allergy/AdvReac Type Severity Reaction Status Date / Time No Known Allergies Allergy Unverified 09/30/24 23:08 Home Medications Medication Instructions Recorded Confirmed Type fluticasone fur. 100 mcg-umeclid 1 inh inhalation DAILY 06/30/24 09/30/24 History 62.5 mcg-vilant 25 mcg inhalat.powder (Trelegy Ellipta) ibuprofen 800 mg tablet 800 mg PO Q8H PRN Pain 06/30/24 09/30/24 History ipratropium 0.5 mg-albuterol 3 mg 3 ml inhalation Q4H PRN breath 06/30/24 09/30/24 History (2.5 mg base)/3 mL nebulization soln lidocaine-prilocaine 2.5 %-2.5 % 1 applic topical BID 06/30/24 09/30/24 History topical cream methocarbamol 750 mg tablet 750 mg PO TID 06/30/24 09/30/24 History modafinil 200 mg tablet 200 mg PO QAM 06/30/24 09/30/24 History nicotine 14 mg/24 hr daily 1 patch transdermal DAILY PRN pt 06/30/24 09/30/24 History transdermal patch discretion sennosides 8.6 mg-docusate sodium 2 tab PO DAILY PRN therapy 06/30/24 09/30/24 History 50 mg tablet (Senexon-S) silver sulfadiazine 1 % topical 1 applic topical DAILY 06/30/24 09/30/24 History cream bisoprolol fumarate 5 mg tablet 5 mg PO QAM 07/03/24 09/30/24 History furosemide 40 mg tablet 40 mg PO .MWF #14 tabs 09/17/24 09/30/24 Rx potassium chloride 10 mEq 10 meq PO .MWF #15 tabs 09/17/24 09/30/24 Rx tablet,extended release buprenorphine 8 mg-naloxone 2 mg 1 tab sublingual TID 09/30/24 09/30/24 History sublingual tablet buspirone 15 mg tablet 15 mg PO BID 09/30/24 09/30/24 History cholecalciferol (vitamin D3) 125 125 mcg PO QAM 09/30/24 09/30/24 History mcg (5,000 unit) tablet (Vitamin D3) gabapentin 300 mg capsule 900 mg PO TID 09/30/24 09/30/24 History losartan 50 mg tablet 50 mg PO QAM 09/30/24 09/30/24 History Past Med/Surg History Problem List (Updated 10/01/24 @ 04:49 by Alvino Medina MD) Sepsis Acute renal failure NSTEMI (non-ST elevated myocardial infarction) Dehydration Elevated troponin Melena 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) Rheumatoid arthritis ILD (interstitial lung disease) Acute on chronic respiratory failure with hypoxemia Right heart failure due to pulmonary hypertension RUQ pain Chest pain COPD exacerbation Acute respiratory failure with hypoxia Hypomagnesemia (Acute) Pedal edema (Acute) Wheezing (Acute) Pulmonary fibrosis (Acute) Rhinovirus infection (Acute) CHF (congestive heart failure) (Acute) Hypoxia (Acute) Medical History Pulmonary fibrosis Social History Smoking Status: Former smoker Tobacco Type: Cigarettes Second Hand Exposure: No; Do You Dip or Chew Tobacco: No; Tobacco Cessation Education Requested by Patient: No Hx Alcohol Use: No Hx Substance Use: No Preferred Language: Tajik Communication Ability: Effective Surgical Territory Manager Required: No Beliefs That Will Affect Care: None Current Living Situation: Alone Other Information That Helps Us Care for You: No Feels Safe at Home: Yes Safety Concerns: Feels Safe At This Time Assistive Devices: CPAP and Oxygen - Continuous Review of Systems Review of Systems: As per HPI Physical Exam Physical Exam: GENERAL: Awake and alert, slightly confused but oriented, NAD HEAD: AT, NC CHEST: Chest expansions w/ respirations CARDIO: RRR, no r/m/g PULMONARY: no crackles or wheezes, normal respiratory effort, no respiratory distress GI: soft, non-distended, mild tenderness in epigastric region, no guarding or rebound EXTREMITIES: +1 pitting edema b/l w/o calf tenderness Results & Data Results & Data Vital Signs (Past 12 Hours) Vital Signs Pulse Pulse Resp BP BP Pulse Ox O2 Del Method 09/30/24 23:00 72 24 108/81 90 High Flow Nasal Cannula 09/30/24 22:27 74 16 94 High Flow Nasal Cannula 09/30/24 21:00 78 16 121/74 97 Non-rebreather 09/30/24 20:30 76 24 115/78 97 Non-rebreather 09/30/24 20:23 90 Non-rebreather 09/30/24 20:09 79 09/30/24 19:59 80 20 63/37 L 82 L Nasal Cannula 09/30/24 19:49 Oxymask O2 Flow Rate FiO2 09/30/24 23:00 09/30/24 22:27 30 50 09/30/24 21:00 12 09/30/24 20:30 15 09/30/24 20:23 15 09/30/24 20:09 09/30/24 19:59 5 09/30/24 19:49 8 Supervising Physician Co-Signing Physician Notes I personally saw and examined the patient. I independently reviewed the labs, EKG, imaging, problem list, medication list, past medical history and family history. I verified all langley points and agree with resident physician Dr Cheyanne Stockton MD with the following exceptions and/or additions: 59 year old male presents to the ER with shortness of breath, increased weakness, decreased appetite. Melena episodes yesterday. Epigastric pain today. O/E A&Ox3, dry mucus membranes, HS RRR, no murmurs, Chest CTAB, Abdo SNT, trace pedal edema, cap refil < 2s A/P Sepsis / PNA / lactic acidosis - suspected source PNA, procalcitonin positive, Zosyn + azithromycin Acute respiratory failure with hypoxia - aim O2 sats > 90% Melena / epigastric pain - Pantoprazole 40mg IV BID, hemoglobin q6h Hypovolemia hyponatremia - Sepsis bolus NSS 1.75L bolus given, repeat BMP with next set of labs following fluid resuscitation Chronic HFpEF - clinically dry on exam, holding diuretics VTE Prophylaxis - hold chemical prophylaxis due to melena Resident Activity Tracking Resident Involvement: Resident Care Provided Care Provided: Adult Hospital Medicine
--- NOTE | 2024-09-30 23:10 | CT Scan Report ---
Exam(s): CT CHEST Without Contrast EXAM: CT Chest Without Intravenous Contrast CLINICAL HISTORY: Reason for exam: SOB, pulm fib, R shoulder pain. TECHNIQUE: Axial computed tomography images of the chest without intravenous contrast. CTDI is 13.67 mGy and DLP is 830.77 mGy-cm. Automated exposure control was utilized for the study. A dose lowering technique was utilized adhering to the principles of ALARA. COMPARISON: No relevant prior studies available. FINDINGS: Lungs: Pulmonary fibrotic changes with subpleural and basilar predominance and peripheral regions of honeycombing. Patchy superimposed airspace nodules predominantly in the right middle and right lower lobes. Pleural space: Unremarkable. No pleural effusion. No pneumothorax. Heart: Minimal coronary artery atherosclerosis. No cardiomegaly. No significant pericardial effusion. Bones/joints: No acute fracture. No dislocation. Disc degeneration in the thoracic spine. Soft tissues: Unremarkable. Vasculature: No aortic aneurysm. Enlarged main pulmonary artery consistent with mild pulmonary arterial hypertension. Lymph nodes: Unremarkable. No lymphadenopathy. IMPRESSION: 1. Pulmonary fibrotic changes with subpleural and basilar predominance and peripheral regions of honeycombing. This could represent UIP pattern. Pulmonology follow-up recommended if not previously performed. 2. Patchy superimposed airspace nodules within the right lung could represent pneumonitis or developing pneumonia. Electronically signed by: Dread Perry M.D. 09/30/24 23:10 PM
[2024-09-30] MEDS: SODIUM CHLORIDE 0.9% 1,000 ML IV STA (23:30)
[2024-10-01 00:07] LABS: Influenza A virus by PCR Negative (Neg); Influenza B virus by PCR Negative (Neg); RSV by PCR Negative (Neg); SARS CoV2 RNA(COVID-19) Ceph NEGATIVE (Negative)
[2024-10-01] MEDS: SODIUM CHLORIDE 0.9% 250 ML IV STA (00:10)
[2024-10-01] MEDS: AZITHROMYCIN 500 MG/255 ML BAG IV ONE (00:10)
[2024-10-01] MEDS: LACTATED RINGER'S 500 ML IV ONE (00:40)
--- NOTE | 2024-10-01 01:07 | XRay Report ---
Exam(s): XR CXR 1 VIEW EXAM: XR Chest, 1 View CLINICAL HISTORY: Reason for exam: Dyspnea. TECHNIQUE: Frontal view of the chest. COMPARISON: No relevant prior studies available. FINDINGS: Lungs: Pulmonary fibrotic changes. No confluent airspace consolidation. Pleural space: No pleural effusion or pneumothorax. Heart: No cardiomegaly or pulmonary vascular congestion. Bones/joints: No acute fracture. No dislocation. IMPRESSION: Pulmonary fibrotic changes. No confluent airspace consolidation. Electronically signed by: Dread Perry M.D. 10/01/24 01:06 AM
[2024-10-01] MEDS: PANTOprazole 80 MG in DEXTROSE 5% 100 ML IV STA (01:20)
[2024-10-01] MEDS ORDERED: STAT IV Infusion **Titration per Protocol STA (01:56)
[2024-10-01 02:00] LABS: Base Excess VBG -7.3 mEq/L; HCO3 VBG 20 mmol/L; Oxygen Saturation VBG 65.6 %; PCO2 VBG 47 mmHg (38-50); PO2 VBG 44 mmHg; pH VBG 7.24 (7.36-7.41)
[2024-10-01 02:10] LABS: Hematocrit (blood only) 39.3 % (37.0-47.0); Hemoglobin 13.3 g/dl (12.0-16.0)
--- NOTE | 2024-10-01 02:44 | Emergency Department Note ---
Impression & Plan Pneumonia, ILD (interstitial lung disease), Non-ST elevated myocardial infarction (non-STEMI), Sepsis ED Provider Note CHIEF COMPLAINT: Shortness of breath, right shoulder pain HISTORY OF PRESENT ILLNESS: This 59-year-old female With past medical history of COPD, pulmonary fibrosis, congestive heart failure, rheumatoid arthritis presents to the emergency department with increased work of breathing, complaining of right shoulder Pain. The patient has been complaining of shortness of breath for the last 2 weeks. Apparently she traveled to [place] and was "like this" the whole time. Daughter admits the patient drove herself to [place] and back home. Patient does have a history of COPD and pulmonary fibrosis and wears 3.5 L of home oxygen at baseline. She is currently wearing 5 L upon arrival to the emergency department and satting in the mid 80s. There is no report of fever or vomiting. Patient denies any recent falls or head injuries. REVIEW OF SYSTEMS: Unable to obtain a full review of systems secondary to the patient's mental status. ALLERGIES: see below MEDICATIONS: see below PMH: see below SOCIAL HISTORY: see below DDx: COPD exacerbation, pulmonary fibrosis, PE, congestive heart failure, pneumothorax, acute coronary syndrome, viral syndrome, pneumonia among others. PHYSICAL EXAM: Vital signs reviewed. General: Chronically ill-appearing 59-year-old female, in no significant distress. HEENT: No scleral icterus, PERRLA, neck supple. Atraumatic. Cardiovascular: Regular rate and rhythm, no extra sounds. Pulmonary: Diminished breath sounds to auscultation bilaterally, increased work of breathing. On nonrebreather. Abdomen: Soft, nontender, nondistended, positive bowel sounds. Musculoskeletal: Atraumatic, no peripheral edema. Neurologic: Patient awake alert and oriented x 3, speech is clear Skin: Warm, dry, no rash EMERGENCY DEPARTMENT COURSE/MDM: This patient was evaluated and appeared to be chronically ill and in respiratory discomfort, but no distress. IV access was obtained and laboratory work was drawn. The patient was placed on the cover mat machine operator and noted to be in a normal sinus rhythm. Chest x-ray reveals no focal lung consolidation however there are interstitial changes consistent with fibrosis. Patient was medicated with IV Solu-Medrol and a DuoNeb treatment. There was difficulty maintaining the patient's oxygen saturations the respiratory therapy was called. Patient required high flow nasal cannula oxygen. Chest CT was performed and reveals pneumonitis or developing pneumonia in addition to her pulmonary fibrosis. Laboratory work is significant for WBC of 17.5, sodium of 124 with creatinine of 2.5. Lactate is noted to be 4.1, procalcitonin of 10.3 with an ionized calcium of 1.02. High-sensitivity troponin is 573 with an elevated BNP. Blood cultures were obtained and the patient was medicated with IV ceftriaxone and azithromycin. She was hydrated with normal saline solution 500 ml bolus d/t mild hypotension and continued at 125 ml/hr. this was not 30 mL/kg due to patient's history of heart failure, kidney disease and an elevated BNP currently. Case was discussed with the hospitalist service who agreed to evaluate the patient for admission and further management. MONITORING: An order for cardiac monitoring was placed and the patient is noted to be in a normal sinus rhythm at 76 beats per minute. RADIOLOGY: chest x-ray to my interpretation reveals no focal lung consolidation however chronic changes consistent with pulmonary fibrosis are noted. Chest CT per radiology IMPRESSION: 1. Pulmonary fibrotic changes with subpleural and basilar predominance and peripheral regions of honeycombing. This could represent UIP pattern. Pulmonology follow-up recommended if not previously performed. 2. Patchy superimposed airspace nodules within the right lung could represent pneumonitis or developing pneumonia. CT of the abdomen and pelvis: IMPRESSION: 1. Hepatic steatosis. 2. No acute findings in the abdomen or pelvis. EKG: To my interpretation reveals a normal sinus rhythm at 77 bpm. Left atrial enlargement. Nonspecific ST change/ST depression in the anterior leads. QTc of 448. DISPOSITION: Admission I have personally spent greater than 35 minutes of critical care time in the direct management of this patient. This includes bedside care, interpretation of diagnostic studies, and testing, discussion with consultants, patient, and family members, and other required patient management activities. This 35 minutes is in excess of all separately billable procedures. 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) Rheumatoid arthritis ILD (interstitial lung disease) (Acute) Acute on chronic respiratory failure with hypoxemia Right heart failure due to pulmonary hypertension RUQ pain Chest pain COPD exacerbation Acute respiratory failure with hypoxia Hypomagnesemia (Acute) Pedal edema (Acute) Wheezing (Acute) Pulmonary fibrosis (Acute) Rhinovirus infection (Acute) CHF (congestive heart failure) (Acute) Hypoxia (Acute) Medical History Pulmonary fibrosis Social History Smoking Status: Former smoker Tobacco Type: Cigarettes Second Hand Exposure: No; Do You Dip or Chew Tobacco: No; Hx Alcohol Use: No Hx Substance Use: No Preferred Language: Uzbek Communication Ability: Effective Air Brake Tester Required: No Beliefs That Will Affect Care: None Current Living Situation: Alone Feels Safe at Home: Yes Assistive Devices: Cane, CPAP and Oxygen - Continuous Allergies Allergies Allergy/AdvReac Type Severity Reaction Status Date / Time No Known Allergies Allergy Unverified 09/30/24 23:08 Home Meds Home Medications Medication Instructions Recorded Confirmed fluticasone fur. 100 mcg-umeclid 1 inh inhalation DAILY 06/30/24 09/30/24 62.5 mcg-vilant 25 mcg inhalat.powder (Trelegy Ellipta) ibuprofen 800 mg tablet 800 mg PO Q8H PRN Pain 06/30/24 09/30/24 ipratropium 0.5 mg-albuterol 3 mg 3 ml inhalation Q4H PRN breath 06/30/24 09/30/24 (2.5 mg base)/3 mL nebulization soln lidocaine-prilocaine 2.5 %-2.5 % 1 applic topical BID 06/30/24 09/30/24 topical cream methocarbamol 750 mg tablet 750 mg PO TID 06/30/24 09/30/24 modafinil 200 mg tablet 200 mg PO QAM 06/30/24 09/30/24 nicotine 14 mg/24 hr daily 1 patch transdermal DAILY PRN pt 06/30/24 09/30/24 transdermal patch discretion sennosides 8.6 mg-docusate sodium 2 tab PO DAILY PRN therapy 06/30/24 09/30/24 50 mg tablet (Senexon-S) silver sulfadiazine 1 % topical 1 applic topical DAILY 06/30/24 09/30/24 cream bisoprolol fumarate 5 mg tablet 5 mg PO QAM 07/03/24 09/30/24 buprenorphine 8 mg-naloxone 2 mg 1 tab sublingual TID 09/30/24 09/30/24 sublingual tablet buspirone 15 mg tablet 15 mg PO BID 09/30/24 09/30/24 cholecalciferol (vitamin D3) 125 125 mcg PO QAM 09/30/24 09/30/24 mcg (5,000 unit) tablet (Vitamin D3) gabapentin 300 mg capsule 900 mg PO TID 09/30/24 09/30/24 losartan 50 mg tablet 50 mg PO QAM 09/30/24 09/30/24 Previous Rx's Medication Instructions Recorded furosemide 40 mg tablet 40 mg PO .MWF #14 tabs 09/17/24 potassium chloride 10 mEq 10 meq PO .MWF #15 tabs 09/17/24 tablet,extended release Results & Data (ED) Vital Signs Vital Signs - 24 hr 09/30/24 19:49 09/30/24 19:59 09/30/24 20:09 Temperature Temperature Source Pulse Rate 80 79 Pulse Rate [Apical] Pulse Rhythm [Apical] Pulse Strength [Apical] Respiratory Rate 20 Respiratory Effort / Characteristics Non-Labored Spontaneous Respiratory Depth Normal Respiratory Pattern Regular Blood Pressure 63/37 L Blood Pressure [Right Arm] Blood Pressure Mean 45 Blood Pressure Mean [Right Arm] Blood Pressure Position Sitting Blood Pressure Position [Right Arm] Pulse Oximetry 82 L Oxygen Delivery Method Oxymask Nasal Cannula Oxygen Flow Rate 8 5 Fraction of Inspired Oxygen Sepsis Recent Fever Within 48 Hours No Sepsis New/Unexplained Change in Mental Status N/A Sepsis Action Taken by Nursing No Action Required 09/30/24 20:23 09/30/24 20:30 09/30/24 21:00 Temperature Temperature Source Pulse Rate Pulse Rate [Apical] 76 78 Pulse Rhythm [Apical] Regular Pulse Strength [Apical] Respiratory Rate 24 16 Respiratory Effort / Characteristics Labored Respiratory Depth Respiratory Pattern Blood Pressure Blood Pressure [Right Arm] 115/78 121/74 Blood Pressure Mean Blood Pressure Mean [Right Arm] 90 89 Blood Pressure Position Blood Pressure Position [Right Arm] Semi-fowlers Semi-fowlers Pulse Oximetry 90 97 97 Oxygen Delivery Method Non-rebreather Non-rebreather Non-rebreather Oxygen Flow Rate 15 15 12 Fraction of Inspired Oxygen Sepsis Recent Fever Within 48 Hours Sepsis New/Unexplained Change in Mental Status Sepsis Action Taken by Nursing 09/30/24 22:27 09/30/24 23:00 09/30/24 23:42 Temperature Temperature Source Pulse Rate Pulse Rate [Apical] 74 72 69 Pulse Rhythm [Apical] Regular Pulse Strength [Apical] Normal Respiratory Rate 16 24 20 Respiratory Effort / Characteristics Non-Labored Spontaneous Non-Labored Respiratory Depth Normal Respiratory Pattern Regular Blood Pressure Blood Pressure [Right Arm] 108/81 108/83 Blood Pressure Mean Blood Pressure Mean [Right Arm] 90 91 Blood Pressure Position Blood Pressure Position [Right Arm] Lying Lying Pulse Oximetry 94 90 99 Oxygen Delivery Method High Flow Nasal Cannula High Flow Nasal Cannula High Flow Nasal Cannula Oxygen Flow Rate 30 Fraction of Inspired Oxygen 50 Sepsis Recent Fever Within 48 Hours Sepsis New/Unexplained Change in Mental Status Sepsis Action Taken by Nursing 09/30/24 23:49 10/01/24 00:00 10/01/24 00:01 Temperature Temperature Source Pulse Rate 67 Pulse Rate [Apical] 72 74 Pulse Rhythm [Apical] Pulse Strength [Apical] Respiratory Rate 16 20 Respiratory Effort / Characteristics Non-Labored Spontaneous Non-Labored Spontaneous Respiratory Depth Normal Respiratory Pattern Regular Blood Pressure Blood Pressure [Right Arm] 124/101 H Blood Pressure Mean Blood Pressure Mean [Right Arm] 108 Blood Pressure Position Blood Pressure Position [Right Arm] Lying Pulse Oximetry 93 95 Oxygen Delivery Method High Flow Nasal Cannula High Flow Nasal Cannula Oxygen Flow Rate 30 Fraction of Inspired Oxygen 70 Sepsis Recent Fever Within 48 Hours Sepsis New/Unexplained Change in Mental Status Sepsis Action Taken by Nursing 10/01/24 01:17 10/01/24 01:43 10/01/24 01:56 Temperature 35.6 C L Temperature Source Rectal Pulse Rate Pulse Rate [Apical] 75 71 70 Pulse Rhythm [Apical] Pulse Strength [Apical] Respiratory Rate 19 Respiratory Effort / Characteristics Non-Labored Spontaneous Respiratory Depth Normal Respiratory Pattern Blood Pressure Blood Pressure [Right Arm] 86/59 L 75/60 L 89/76 L Blood Pressure Mean Blood Pressure Mean [Right Arm] 68 65 80 Blood Pressure Position Blood Pressure Position [Right Arm] Lying Lying Lying Pulse Oximetry 93 94 Oxygen Delivery Method Room Air High Flow Nasal Cannula Oxygen Flow Rate Fraction of Inspired Oxygen Sepsis Recent Fever Within 48 Hours Sepsis New/Unexplained Change in Mental Status Sepsis Action Taken by Skilled Nursing Medications Current Medication List: was personally reviewed by me Laboratory Data Attestation: I reviewed the patient's lab results. 10/04/24 06:52 10/04/24 06:52 Lab Results 09/30/24 09/30/24 09/30/24 Range/Units 20:15 20:30 21:50 WBC 17.75 H (4.8-10.8) K/ul RBC 5.27 (4.20-5.40) M/uL Hgb 15.8 (12.0-16.0) g/dl POC Hgb 15.0 (12.0-16.0) g/dl Hct 46.0 (37.0-47.0) % POC Hct 44 (37-47) % MCV 87.3 (80.0-100.0) fL MCH 30.0 (25.0-34.0) pg MCHC 34.3 (32.0-36.0) g/dL RDW Std Deviation 49.0 H (36.4-46.3) fL RDW Coeff of Reji 15.6 H (11.5-14.5) % Plt Count 182 (130-400) K/uL MPV 12.2 (9.4-12.4) fL Immature Gran % (Auto) 0.7 % Neut % (Auto) 82.5 % Lymph % (Auto) 11.7 % [place] % (Auto) 4.9 % Eos % (Auto) 0.1 % Baso % (Auto) 0.1 % Neut # (Auto) 14.66 H (1.40-6.50) K/uL Lymph # (Auto) 2.07 (1.20-3.40) K/uL [place] # (Auto) 0.87 H (0.11-0.59) K/uL Eos # (Auto) 0.01 (0.00-0.50) K/uL Baso # (Auto) 0.01 (0.00-0.20) K/uL Immature Gran # (Auto) 0.13 (0.01-0.20) K/uL Absolute Nucleated RBC 0.03 (0.00-0.12) K/uL Nucleated RBC % (auto) 0.2 % Toxic Vacuolation 1+ Polychromasia 1+ PT 15.8 H (9.0-12.0) Seconds INR 1.5 H (0.9-1.1) APTT 29 (21-31) Seconds PTT Ratio 1.1 VBG pH 7.26 L (7.36-7.41) VBG pCO2 49 (38-50) mmHg VBG pO2 28 mmHg VBG HCO3 22 mmol/L VBG O2 Saturation < 60.0 % VBG Base Excess -5.3 mEq/L POC Sodium 124 L (135-144) mmol/L Sodium 126 L (136-145) mmol/L POC Potassium 4.5 (3.3-5.0) mmol/L Potassium 4.5 (3.5-5.1) mmol/L POC Chloride 90 L (101-112) mmol/L Chloride 85 L (98-107) mmol/L Carbon Dioxide 26 (21-32) mmol/L POC Total CO2 24 (24-31) mmol/L Anion Gap 15 H (3-11) POC Anion Gap 16.0 (16-25) mmol/L POC BUN 63 H (7-18) mg/dl BUN 73 H (6-23) mg/dl Creatinine 2.50 H (0.6-1.2) mg/dl POC Creatinine 2.9 H (0.6-1.3) mg/dl Est Cr Clr Drug Dosing 24.4 ml/min eGFR 21.61 BUN/Creatinine Ratio 29.2 H (10-20) Glucose 146 H (70-99(Fasting)) mg/dl POC Glucose (other) 153 H (70-99) mg/dl Osmolality 292 (280-300) mOsm/kg Calcium 9.6 (8.6-10.3) mg/dl POC Ioniz Calcium Christopher 0.74 L* (1.12-1.32) mmol/l Ionized Calcium 1.02 L (1.12-1.32) mmol/L Magnesium 2.1 (1.7-2.4) mg/dl Total Bilirubin 2.0 H (0.2-1.0) mg/dl AST 117 H (13-39) U/L ALT 107 H (7-52) U/L Alkaline Phosphatase 88 (34-104) U/L Troponin I High Sens 625.5 H* (0-14) pg/ml C-Reactive Protein Cancelled Total Protein 7.5 (6.0-8.3) gm/dl Albumin 4.4 (3.4-5.0) gm/dl Globulin 3.1 (2.5-4.0) gm/dl Albumin/Globulin Ratio 1.4 (0.9-2) Procalcitonin 10.30 H (0-0.5) ng/ml Administered Medications Acetaminophen (Acetaminophen 325 Mg Tab) 650 mg PO Q4H PRN PRN Reason: Pain or Fever Stop: 10/31/24 03:03 Last Admin: 10/04/24 02:13 Dose: 650 mg Documented By: Admin: 10/02/24 21:33 Dose: 650 mg Documented By: ABELARDO Albuterol (Albut/Ipratrop 3mg/0.5mg Neb 3 Ml Vial) 3 ml NEB Q6R PRN; Protocol PRN Reason: Shortness Of Breath Or Wheezing Stop: 10/31/24 03:03 Last Admin: 10/03/24 00:55 Dose: 3 ml Documented By: MARGO Azithromycin (Azithromycin 250 Mg Tab) 250 mg PO QAM [facility] Stop: 10/07/24 08:59 Last Admin: 10/04/24 08:20 Dose: 250 mg Documented By: Admin: 10/03/24 08:19 Dose: 250 mg Documented By: Admin: 10/02/24 07:39 Dose: 250 mg Documented By: NICOLE Budesonide (Budesonide 0.5 Mg/2 Ml Vial (Pulmicort)) 0.5 mg NEB BIDR [facility] Stop: 10/31/24 06:59 Last Admin: 10/04/24 19:52 Dose: 0.5 mg Documented By: Admin: 10/04/24 07:21 Dose: 0.5 mg Documented By: Admin: 10/03/24 20:43 Dose: 0.5 mg Documented By: Admin: 10/03/24 07:27 Dose: 0.5 mg Documented By: Admin: 10/02/24 19:10 Dose: 0.5 mg Documented By: Admin: 10/02/24 07:14 Dose: 0.5 mg Documented By: Admin: 10/01/24 20:17 Dose: 0.5 mg Documented By: Admin: 10/01/24 07:02 Dose: 0.5 mg Documented By: EM Buprenorphine/Naloxone (Buprenorphine/Naloxone 8/2 Mg Tab) 1 tab SL TID [facility] Stop: 11/01/24 13:59 Last Admin: 10/04/24 14:23 Dose: 1 tab Documented By: Admin: 10/04/24 08:25 Dose: 1 tab Documented By: Admin: 10/03/24 20:23 Dose: 1 tab Documented By: KDRehan Admin: 10/03/24 14:13 Dose: 1 tab Documented By: Admin: 10/03/24 08:25 Dose: 1 tab Documented By: Admin: 10/02/24 21:11 Dose: 1 tab Documented By: KDRehan Admin: 10/02/24 13:23 Dose: 1 tab Documented By: BRIGID Formoterol Fumarate (Formoterol 20 Mcg/2 Ml Vial) 20 mcg NEB BIDR [facility] Stop: 10/31/24 06:59 Last Admin: 10/04/24 19:52 Dose: 20 mcg Documented By: Admin: 10/04/24 07:21 Dose: 20 mcg Documented By: Admin: 10/03/24 20:43 Dose: 20 mcg Documented By: Admin: 10/03/24 07:26 Dose: 20 mcg Documented By: Admin: 10/02/24 19:10 Dose: 20 mcg Documented By: Admin: 10/02/24 07:14 Dose: 20 mcg Documented By: Admin: 10/01/24 20:17 Dose: 20 mcg Documented By: Admin: 10/01/24 07:02 Dose: 20 mcg Documented By: EM Furosemide (Furosemide 20 Mg Tab) 20 mg PO QAM [facility] Stop: 11/03/24 16:44 Last Admin: 10/04/24 17:52 Dose: 20 mg Documented By: JAMES Gabapentin (Gabapentin 300 Mg Cap) 300 mg PO TID [facility] Stop: 11/01/24 13:59 Last Admin: 10/04/24 14:23 Dose: 300 mg Documented By: Admin: 10/04/24 08:17 Dose: 300 mg Documented By: Admin: 10/03/24 20:23 Dose: 300 mg Documented By: KDRehan Admin: 10/03/24 14:11 Dose: 300 mg Documented By: Admin: 10/03/24 08:19 Dose: 300 mg Documented By: Admin: 10/02/24 21:33 Dose: 300 mg Documented By: KDRehan Admin: 10/02/24 13:23 Dose: 300 mg Documented By: NICOLE Guaifenesin (Guaifenesin 600 Mg Tabcr) 600 mg PO Q12 [facility] Stop: 10/31/24 08:59 Last Admin: 10/04/24 10:13 Dose: 600 mg Documented By: Admin: 10/03/24 20:23 Dose: 600 mg Documented By: Admin: 10/03/24 08:19 Dose: 600 mg Documented By: Admin: 10/02/24 21:12 Dose: 600 mg Documented By: Admin: 10/02/24 07:39 Dose: 600 mg Documented By: Admin: 10/01/24 20:40 Dose: 600 mg Documented By: Admin: 10/01/24 09:26 Dose: Not Given Documented By: TONY Heparin Sodium (Porcine) (Heparin Sod 5,000 Unit/0.5 Ml Vial) 5,000 units SQ Q12 [facility] Stop: 11/01/24 20:59 Last Admin: 10/04/24 10:14 Dose: 5,000 units Documented By: Admin: 10/03/24 20:23 Dose: 5,000 units Documented By: Admin: 10/03/24 08:26 Dose: 5,000 units Documented By: Admin: 10/02/24 21:12 Dose: 5,000 units Documented By: ABELARDO Pantoprazole Sodium (Protonix) 40 mg in 10 mls @ 5 mls/min IV DAILY [facility] Stop: 11/01/24 08:59 Last Admin: 10/04/24 08:17 Dose: 5 mls/min Documented By: Admin: 10/03/24 08:20 Dose: 5 mls/min Documented By: Admin: 10/02/24 07:50 Dose: 5 mls/min Documented By: NICOLE Cefepime HCl (Maxipime 2000mg) 2,000 mg in 20 mls @ 5 mls/min IV Q12H [facility] Stop: 10/06/24 10:59 Last Admin: 10/04/24 11:38 Dose: 5 mls/min Documented By: Admin: 10/03/24 22:20 Dose: 5 mls/min Documented By: Admin: 10/03/24 11:46 Dose: 5 mls/min Documented By: JUSTO Midodrine (Midodrine Hcl 2.5 Mg Tab) 5 mg PO TID@0800,1200,1700 [facility] Stop: 10/31/24 11:59 Last Admin: 10/04/24 17:53 Dose: 5 mg Documented By: Admin: 10/04/24 11:39 Dose: 5 mg Documented By: Admin: 10/04/24 08:18 Dose: 5 mg Documented By: Admin: 10/03/24 17:16 Dose: 5 mg Documented By: Admin: 10/03/24 11:47 Dose: 5 mg Documented By: Admin: 10/03/24 08:26 Dose: 5 mg Documented By: Admin: 10/02/24 16:51 Dose: 5 mg Documented By: ISAAC Co-signed By: ABI Admin: 10/02/24 11:32 Dose: 5 mg Documented By: Admin: 10/02/24 07:39 Dose: 5 mg Documented By: Admin: 10/01/24 16:46 Dose: 5 mg Documented By: Admin: 10/01/24 11:30 Dose: 5 mg Documented By: TONY Modafinil (Modafinil 100 Mg Tab) 200 mg PO QAM PRN PRN Reason: hypersomnolence Stop: 11/01/24 11:29 Last Admin: 10/02/24 13:45 Dose: 200 mg Documented By: NICOLE Umeclidinium [place] (Umeclidinium [place] 62.5mcg/Blister 7 Puffs/Inhaler) 1 puffs INH DAILY [facility] Stop: 10/31/24 08:59 Last Admin: 10/04/24 08:19 Dose: 1 puffs Documented By: Admin: 10/03/24 08:20 Dose: 1 puffs Documented By: Admin: 10/02/24 07:40 Dose: 1 puffs Documented By: Admin: 10/01/24 09:27 Dose: Not Given Documented By: TONY Discontinued Medications Albuterol (Albut/Ipratrop 3mg/0.5mg Neb 3 Ml Vial) 3 ml INH NOW STA Stop: 09/30/24 20:24 Last Admin: 09/30/24 20:33 Dose: 3 ml Documented By: BENJAMIN Albuterol (Albut/Ipratrop 3mg/0.5mg Neb 3 Ml Vial) 3 ml NEB Q6R [facility]; Protocol Stop: 10/31/24 03:03 Last Admin: 10/02/24 13:26 Dose: 3 ml Documented By: Admin: 10/02/24 07:14 Dose: Not Given Documented By: Admin: 10/02/24 01:47 Dose: 3 ml Documented By: Admin: 10/01/24 20:07 Dose: Not Given Documented By: Admin: 10/01/24 13:26 Dose: 3 ml Documented By: Admin: 10/01/24 07:02 Dose: Not Given Documented By: Admin: 10/01/24 04:07 Dose: 3 ml Documented By: EML Aspirin (Aspirin 300 Mg Supp) 300 mg ND ONE ONE Stop: 09/30/24 21:28 Last Admin: 09/30/24 21:48 Dose: 300 mg Documented By: GIULIANA Sodium Chloride (Nss) 500 mls @ 999 mls/hr IV .Q31M ONE Stop: 09/30/24 20:54 Last Infusion: 09/30/24 21:13 Dose: Infused Documented By: Admin: 09/30/24 20:39 Dose: 999 mls/hr Documented By: BENJAMIN Sodium Chloride (Nss) 1,000 mls @ 125 mls/hr IV .Q8H [facility] Stop: 10/01/24 21:59 Last Infusion: 09/30/24 23:29 Dose: Infused Documented By: Admin: 09/30/24 23:08 Dose: 125 mls/hr Documented By: KEVIN Ceftriaxone Sodium (Rocephin) 2,000 mg in 50 mls @ 100 mls/hr IV NOW STA Stop: 09/30/24 22:42 Last Infusion: 09/30/24 23:41 Dose: Infused Documented By: Admin: 09/30/24 23:08 Dose: 100 mls/hr Documented By: KEVIN Azithromycin (Zithromax) 500 mg in 255 mls @ 127.5 mls/hr IV NOW ONE Stop: 10/01/24 00:12 Last Infusion: 10/01/24 02:36 Dose: Infused Documented By: Admin: 10/01/24 00:10 Dose: 127.5 mls/hr Documented By: Lactated Ringer's (Lr) 500 mls @ 999 mls/hr IV .Q31M ONE Stop: 09/30/24 23:49 Last Admin: 10/01/24 00:40 Dose: Not Given Documented By: Sodium Chloride (Nss) 1,000 mls @ 999 mls/hr IV .Q1H1M STA Stop: 10/01/24 00:24 Last Infusion: 10/01/24 00:39 Dose: Infused Documented By: Admin: 09/30/24 23:30 Dose: 999 mls/hr Documented By: Pantoprazole Sodium 80 mg/ (Dextrose) 120 mls @ 480 mls/hr IV ONE STA Stop: 09/30/24 23:44 Last Infusion: 10/01/24 01:44 Dose: Infused Documented By: Admin: 10/01/24 01:20 Dose: 480 mls/hr Documented By: Sodium Chloride (Nss) 250 mls @ 999 mls/hr IV .Q16M STA Stop: 09/30/24 23:48 Last Infusion: 10/01/24 00:39 Dose: Infused Documented By: Admin: 10/01/24 00:10 Dose: 999 mls/hr Documented By: Norepinephrine Bitartrate (Levophed/D5w) 4 mg in 250 mls @ 15.206 mls/hr IV .[id number] [facility]; Protocol Stop: 10/31/24 01:59 Last Titration: 10/01/24 03:41 Dose: Infused Documented By: [id number] Co-signed By: CLC Titration: 10/01/24 03:12 Dose: 0 mcg/kg/min, 0 mls/hr Documented By: VK Co-signed By: [id number] Admin: 10/01/24 03:11 Dose: 0.05 mcg/kg/min, 15.2 mls/hr Documented By: VK Co-signed By: [id number] Lactated Ringer's (Lr) 1,000 mls @ 80 mls/hr IV .[id number] [facility] Stop: 10/02/24 04:29 Last Admin: 10/01/24 03:42 Dose: Not Given Documented By: [id number] Pantoprazole Sodium (Protonix) 40 mg in 10 mls @ 5 mls/min IV BID [facility] Stop: 10/31/24 08:59 Last Admin: 10/01/24 08:41 Dose: 5 mls/min Documented By: TONY Cefepime HCl (Maxipime 2000mg) 1,000 mg in 10 mls @ 5 mls/min IV Q12H [facility] Stop: 10/06/24 10:59 Last Admin: 10/02/24 23:27 Dose: 5 mls/min Documented By: Admin: 10/02/24 10:39 Dose: 5 mls/min Documented By: Admin: 10/01/24 22:41 Dose: 5 mls/min Documented By: Admin: 10/01/24 11:30 Dose: 5 mls/min Documented By: TONY Sodium Chloride (Nss) 500 mls @ 100 mls/hr IV .Q5H [facility] Stop: 10/02/24 17:14 Last Infusion: 10/02/24 17:44 Dose: Infused Documented By: Admin: 10/02/24 12:39 Dose: 100 mls/hr Documented By: NICOLE Magnesium Sulfate/Dextrose (Magnesium Sulfate / D5w) 1 gm in 100 mls @ 50 mls/hr IV Q2H [facility] Stop: 10/03/24 05:59 Last Infusion: 10/03/24 06:39 Dose: Infused Documented By: Admin: 10/03/24 04:34 Dose: 50 mls/hr Documented By: Infusion: 10/03/24 04:30 Dose: Infused Documented By: KDRehan Admin: 10/03/24 02:30 Dose: 50 mls/hr Documented By: ABELARDO Magnesium Sulfate/Dextrose (Magnesium Sulfate / D5w) 1 gm in 100 mls @ 50 mls/hr IV Q2H [facility] Stop: 10/04/24 13:54 Last Infusion: 10/04/24 14:00 Dose: Infused Documented By: Admin: 10/04/24 11:41 Dose: 50 mls/hr Documented By: Infusion: 10/04/24 11:41 Dose: Infused Documented By: Admin: 10/04/24 10:13 Dose: 50 mls/hr Documented By: JAMES Methylprednisolone (Methylprednisolone 125 Mg/2 Ml Vial) 60 mg IV NOW STA Stop: 09/30/24 20:24 Last Admin: 09/30/24 20:32 Dose: 60 mg Documented By: BENJAMIN Miscellaneous (Icu Protocol For Hyperglycemia) 1 each N/A ACHS [facility] Stop: 10/03/24 03:29 Last Admin: 10/01/24 16:22 Dose: Not Given Documented By: Admin: 10/01/24 11:06 Dose: 1 each Documented By: Admin: 10/01/24 07:10 Dose: 1 each Documented By: Admin: 10/01/24 03:38 Dose: Not Given Documented By: [id number] Morphine Sulfate (Morphine Sulfate 2 Mg/Ml Carp) 2 mg IV NOW STA Stop: 09/30/24 20:24 Last Admin: 09/30/24 20:32 Dose: 2 mg Documented By: BENJAMIN Multi-Ingredient Mouthwash/Gargle (First - Mouthwash Blm 5 Ml Udp) 5 ml PO Q4H GEOVANNI Stop: 11/01/24 22:44 Last Admin: 10/04/24 08:27 Dose: Not Given Documented By: Admin: 10/04/24 06:16 Dose: Not Given Documented By: Admin: 10/04/24 02:13 Dose: Not Given Documented By: Admin: 10/03/24 22:59 Dose: Not Given Documented By: Admin: 10/03/24 17:17 Dose: 5 ml Documented By: Admin: 10/03/24 14:14 Dose: Not Given Documented By: Admin: 10/03/24 11:57 Dose: Not Given Documented By: Admin: 10/03/24 06:29 Dose: 5 ml Documented By: Admin: 10/03/24 02:34 Dose: Not Given Documented By: Admin: 10/02/24 23:27 Dose: 5 ml Documented By: ABELARDO Ondansetron HCl (Ondansetron Inj 2 Mg/Ml 2 Ml Vial) 4 mg IV NOW STA Stop: 09/30/24 20:24 Last Admin: 09/30/24 20:32 Dose: 4 mg Documented By: BENJAMIN Phytonadione (Phytonadione 5 Mg Tab) 5 mg PO NOW STA Stop: 10/03/24 08:36 Last Admin: 10/03/24 09:26 Dose: 5 mg Documented By: JUSTO Imaging Data Radiologist's Impression: Chest X-Ray 09/30/24 20:23 Exam(s): XR CXR 1 VIEW EXAM: XR Chest, 1 View CLINICAL HISTORY: Reason for exam: Dyspnea. TECHNIQUE: Frontal view of the chest. COMPARISON: No relevant prior studies available. FINDINGS: Lungs: Pulmonary fibrotic changes. No confluent airspace consolidation. Pleural space: No pleural effusion or pneumothorax. Heart: No cardiomegaly or pulmonary vascular congestion. Bones/joints: No acute fracture. No dislocation. IMPRESSION: Pulmonary fibrotic changes. No confluent airspace consolidation. Electronically signed by: Dread Perry M.D. 10/01/24 01:06 AM Abdomen/Pelvis CT 09/30/24 21:23 Exam(s): CT ABDOMEN + PELVIS Without Contrast EXAM: CT Abdomen and Pelvis Without Intravenous Contrast CLINICAL HISTORY: Reason for exam: R should pain, hypoxia, elevated LFTS. TECHNIQUE: Axial computed tomography images of the abdomen and pelvis without intravenous contrast. CTDI is 14 mGy and DLP is 840 mGy-cm. Automated exposure control was utilized for the study. A dose lowering technique was utilized adhering to the principles of ALARA. COMPARISON: No relevant prior studies available. FINDINGS: Lung bases: Fibrotic changes at the lung bases. ABDOMEN: Liver: Hepatic steatosis. Gallbladder and bile ducts: Unremarkable. No calcified stones. No ductal dilation. Pancreas: Unremarkable. No ductal dilation. Spleen: Unremarkable. No splenomegaly. Adrenals: Unremarkable. No mass. Kidneys and ureters: Unremarkable. No obstructing stones. No hydronephrosis. Stomach and bowel: Diverticulosis. No bowel obstruction. No mucosal thickening. PELVIS: Appendix: Appendix not identified. No secondary signs of appendicitis. Bladder: Unremarkable. No stones. Reproductive: Hysterectomy. ABDOMEN and PELVIS: Intraperitoneal space: Unremarkable. No free fluid or free air. Bones/joints: No acute fracture or dislocation. L4-S1 posterior decompression and posterior hardware fixation with solid osseous fusion posteriorly. Soft tissues: Unremarkable. Vasculature: Atherosclerosis. No abdominal aortic aneurysm. Lymph nodes: Unremarkable. No enlarged lymph nodes. IMPRESSION: 1. Hepatic steatosis. 2. No acute findings in the abdomen or pelvis. Electronically signed by: Dread Perry M.D. 09/30/24 23:[address] 09/30/24 21:23 Exam(s): CT CHEST Without Contrast EXAM: CT Chest Without Intravenous Contrast CLINICAL HISTORY: Reason for exam: SOB, pulm fib, R shoulder pain. TECHNIQUE: Axial computed tomography images of the chest without intravenous contrast. CTDI is 13.67 mGy and DLP is 830.77 mGy-cm. Automated exposure control was utilized for the study. A dose lowering technique was utilized adhering to the principles of ALARA. COMPARISON: No relevant prior studies available. FINDINGS: Lungs: Pulmonary fibrotic changes with subpleural and basilar predominance and peripheral regions of honeycombing. Patchy superimposed airspace nodules predominantly in the right middle and right lower lobes. Pleural space: Unremarkable. No pleural effusion. No pneumothorax. Heart: Minimal coronary artery atherosclerosis. No cardiomegaly. No significant pericardial effusion. Bones/joints: No acute fracture. No dislocation. Disc degeneration in the thoracic spine. Soft tissues: Unremarkable. Vasculature: No aortic aneurysm. Enlarged main pulmonary artery consistent with mild pulmonary arterial hypertension. Lymph nodes: Unremarkable. No lymphadenopathy. IMPRESSION: 1. Pulmonary fibrotic changes with subpleural and basilar predominance and peripheral regions of honeycombing. This could represent UIP pattern. Pulmonology follow-up recommended if not previously performed. 2. Patchy superimposed airspace nodules within the right lung could represent pneumonitis or developing pneumonia. Electronically signed by: Dread Perry M.D. 09/30/24 23:10 PM Discharge Plan Visit Data Chief Complaint: Shortness of Breath/Dyspnea Stated Complaint: COPD, LETHARGIC, FALLING, FIBROSIS ED Provider: Cierra Bertrand Discharge Problem: Pneumonia, ILD (interstitial lung disease), Non-ST elevated myocardial infarction (non-STEMI), Sepsis Patient Disposition: Admitted As Inpatient Discharge Instructions Interventions: ED Discharge Assessment Last Done: 10/01/24 02:54 Discharge Problem: Pneumonia Qualifiers: Pneumonia type: due to unspecified organism Laterality: right Lung location: u nspecified part of lung Qualified Code(s): J18.9 - Pneumonia, unspecified organism Sepsis Qualifiers: Sepsis type: sepsis due to unspecified organism Sepsis acute organ dysfunction status: with acute organ dysfunction Severe sepsis acute organ dysfunction type: acute respiratory failure Acute respiratory failure type: with hypoxia Severe sepsis shock status: without septic shock Qualified Code(s): A41.9 - Sepsis, unspecified organism
--- NOTE | 2024-10-01 02:53 | Critical Care Consultation ---
Date of Consultation October 01, 2024 Assessment & Plan (1) Acute on chronic respiratory failure with hypoxemia: (2) Right heart failure due to pulmonary hypertension: (3) RUQ pain: (4) Dehydration: (5) Melena: (6) NSTEMI (non-ST elevated myocardial infarction): (7) Acute renal failure: Plan Reason Critically Ill: 1. Hypotension, improved 2. Acute on chronic hypoxemic respiratory failure 3. Acute metabolic encephalopathy 4. Pneumonitis vs. pneumonia superimposed on ILD 5. Lactic acidosis, improving 6. Gastroenteritis vs. upper GI bleeding 7. ANISH on CKD, prerenal azotemia 8. Transaminitis 9. Multifactorial metabolic acidosis (HAG and NAG) 10. Sepsis 11. Acute hyponatremia 12. Type II NSTEMI Neuro - CAM ICU RASS GOAL 0 Avoid sedating medications Hold home Gabapentin and Suboxone overnight, reintroduce as mentation improves I do not feel her encephalopathy stems from her hyponatremia as her mentation has improved since presentation and sodium has actually decreased, thus no significant urgency for correction at this juncture. Will await work-up Cardiac - Hemodynamics improved without vasopressors MAP goal > 65mmHg Additional IVF held. Volume status is tenuous given her RHF. I do feel she will need diuretics initiated today as hemodynamics allow and titrate to response TTE reviewed. Bedside POCUS performed - LVEF grossly normal. IVC dilated as expected. Views limited by respiratory artifact. No B lines appreciated. No pleural effusion. Troponin peaked, EKG non-ischemic. No indication that this is primary ACS and will not start heparin gtt Respiratory - CPAP 10/5/0.4 SpO2 goal 88-92%, will not benefit from hyperoxia IS/Flutter Inhalers as ordered, changes per Dr. Cano Steroid held, disease response limited per prior data and patient's respiratory status is stable. Defer to attending's expertise H. influenzae and yeast on prior bronch cx. Sees Dr. Hawkins ([facility]) as OP. Being worked up for lung transplant at [facility] - CT AP grossly unremarkable. Abdomen is distended. Melena at home with concern for UGIB. On my view there is a hyperdense area of posterior stomach which could indicate stigmata of bleeding. No active clinical bleeding and given her ANISH will avoid further contrast load and monitor clinically with H/H trended. Co nsider GI consultation if rebleeding or HGB drops precipitously Diet: NPO SUP: PPI BID Bowel regimen: PRN RUQ US pending RENAL/LYTES - ANISH, prerenal in setting of GI losses, improving with fluid resuscitation in ED Replete electrolytes as indicated Esparza for accurate I/Os Sodium downtrending despite IVF, sending hyponatremia labs May need to initiate diuresis today to maintain fluid balance ENDO - BG 140-180 per SCCM guidelines ISS if needed while inpatient Cortisol to be of limited utility as she received steroid in ED HEME - H/H Q6H ID - Immunocompromised patient. CAP coverage with azithromycin and ceftriaxone should be adequate pending speciations. Consider broadening coverage if not clinically improving. UA pending, BC x2 pending, MRSA negative, procalcitonin indicates bacterial infection, sputum culture as able LINES/TUBES/DRAINS - PIV x2 Esparza (Day #1) DVT PROPHYLAXIS - Hold DISPOSITION - ICU I have personally spent 36 minutes of critical care time in the direct management of this patient. This is a life/limb threatening event. This includes time spent evaluating patient, direct bedside care, chart review, placing orders, interpretation of diagnostic studies, discussion with consultants, patient, and family members, as well as other required patient management activities. This time is exclusive of all separately billable procedures, and teaching time and separate from and in addition to any other critical care service time. Thank you for allowing us to participate in the care of this patient. Please refer to my attending physician's documentation for any further recommendations. History of Present Illness Reason for Consultation: Hypotension Requesting Physician: Mahin Attending Physician: Alvino Medina MD History of Present Illness Ms. 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 ED from home the evening of 09/30/2024 after being found minimally responsive at home. Per report, patient lives alone and loved ones performed wellfare check as she was not responding to phone calls. She was found surrounded by emesis and feces. On arrival to ED the patient was hypotensive with SBP 67mmHg. She received 2.5L NSS with improvement. SpO2 82% requiring HFNC, also with improvement. She was able to provide history that for 1-2 weeks she's been feeling generally unwell with increasing shortness of breath as well as abdominal pain, n/v/d. Dark stools. She was taking prednisone as home which she uses as needed for exacerbations of her lung disease. Her initial work-up was remarkable for leukocytosis with neutrophil predominance, metabolic acidosis due to bicarbonate loss with pH 7.26, Na 126, Cr 2.5, LA 4.1, and troponin 600. Her BNP returned 2591. Procalcitonin 10.30. Basic RVP negative, BioFire pending. Imaging of AP did not explain abdominal pain, imaging of chest showed pneumonitis vs developing pneumonia superimposed on her ILD. ICU was consulted due to hypotension. Patient seen in ED B12. She awakens to voice, but quickly falls back asleep. RR 10-14. HFNC 30/0.7 with SpO2 95%. This was decreased to 0.5. History limited due to her sleepiness. She is unable to tell me when she last took her medications. Of note, her weight is up to 81kg when dry weight is 70kg. She has 1+ edema to midshin, L > R. ROS limited, positive for dyspnea, abdominal pain, not taken her Lasix in 1 week. Allergies Allergy/AdvReac Type Severity Reaction Status Date / Time No Known Allergies Allergy Unverified 09/30/24 23:08 Home Medications Medication Instructions Recorded Confirmed Type fluticasone fur. 100 mcg-umeclid 1 inh inhalation DAILY 06/30/24 09/30/24 History 62.5 mcg-vilant 25 mcg inhalat.powder (Trelegy Ellipta) ibuprofen 800 mg tablet 800 mg PO Q8H PRN Pain 06/30/24 09/30/24 History ipratropium 0.5 mg-albuterol 3 mg 3 ml inhalation Q4H PRN breath 06/30/24 09/30/24 History (2.5 mg base)/3 mL nebulization soln lidocaine-prilocaine 2.5 %-2.5 % 1 applic topical BID 06/30/24 09/30/24 History topical cream methocarbamol 750 mg tablet 750 mg PO TID 06/30/24 09/30/24 History modafinil 200 mg tablet 200 mg PO QAM 06/30/24 09/30/24 History nicotine 14 mg/24 hr daily 1 patch transdermal DAILY PRN pt 06/30/24 09/30/24 History transdermal patch discretion sennosides 8.6 mg-docusate sodium 2 tab PO DAILY PRN therapy 06/30/24 09/30/24 History 50 mg tablet (Senexon-S) silver sulfadiazine 1 % topical 1 applic topical DAILY 06/30/24 09/30/24 History cream bisoprolol fumarate 5 mg tablet 5 mg PO QAM 07/03/24 09/30/24 History furosemide 40 mg tablet 40 mg PO .MWF #14 tabs 09/17/24 09/30/24 Rx potassium chloride 10 mEq 10 meq PO .MWF #15 tabs 09/17/24 09/30/24 Rx tablet,extended release buprenorphine 8 mg-naloxone 2 mg 1 tab sublingual TID 09/30/24 09/30/24 History sublingual tablet buspirone 15 mg tablet 15 mg PO BID 09/30/24 09/30/24 History cholecalciferol (vitamin D3) 125 125 mcg PO QAM 09/30/24 09/30/24 History mcg (5,000 unit) tablet (Vitamin D3) gabapentin 300 mg capsule 900 mg PO TID 09/30/24 09/30/24 History losartan 50 mg tablet 50 mg PO QAM 09/30/24 09/30/24 History Patient History Medical History Pulmonary fibrosis Social History Smoking Status: Former smoker Tobacco Type: Cigarettes Second Hand Exposure: No; Do You Dip or Chew Tobacco: No; Tobacco Cessation Education Requested by Patient: No Hx Alcohol Use: No Hx Substance Use: No Preferred Language: [place] Communication Ability: Effective Life Teacher Required: No Beliefs That Will Affect Care: None Current Living Situation: Alone Other Information That Helps Us Care for You: No Feels Safe at Home: Yes Safety Concerns: Feels Safe At This Time Assistive Devices: CPAP and Oxygen - Continuous Review of Systems Review of Systems: Unobtainable due to reduced consciousness From what I was able to elicit - abdominal pain RUQ and epigastrium. Dyspnea. Physical Exam Constitutional: + ill appearing, + frail appearing and c ooperative; no acute distress Eyes: PERRL, conjunctivae normal, anicteric sclerae ENMT: external ear and nose normal, oropharynx normal Neck: trachea midline, no thyromegaly Respiratory: normal respiratory effort Auscultation: + crackles and + bronchovesicular breath sounds Cardiovascular: Rate/Rhythm: regular rate and regular rhythm Heart Sounds: + murmur Vessels: no JVD Extremities: normal capillary refill and + pedal edema Gastrointestinal (Abdomen): Inspection/Auscultation: + abdomen distended and + hypoactive bowel sounds Percussion/Palpation: + abdomen tender, + guarding an d abdomen soft Skin: no rashes, warm and dry Neurologic: PERRL, EOMI, accommodation nl, no face palsy, no dysarthria Results & Data Results & Data Vital Signs (Past 12 Hours) Vital Signs Temp Pulse Pulse Resp BP BP Pulse Ox 10/01/24 02:30 69 20 81/60 L 90 10/01/24 01:56 70 89/76 L 10/01/24 01:43 71 75/60 L 94 10/01/24 01:17 35.6 C L 75 19 86/59 L 93 10/01/24 00:01 67 10/01/24 00:00 74 20 124/101 H 95 09/30/24 23:49 72 16 93 09/30/24 23:42 69 20 108/83 99 09/30/24 23:00 72 24 108/81 90 09/30/24 22:27 74 16 94 09/30/24 21:00 78 16 121/74 97 09/30/24 20:30 76 24 115/78 97 09/30/24 20:23 90 09/30/24 20:09 79 09/30/24 19:59 80 20 63/37 L 82 L 09/30/24 19:49 O2 Del Method O2 Flow Rate FiO2 10/01/24 02:30 High Flow Nasal Cannula 10/01/24 01:56 10/01/24 01:43 High Flow Nasal Cannula 10/01/24 01:17 Room Air 10/01/24 00:01 10/01/24 00:00 High Flow Nasal Cannula 09/30/24 23:49 High Flow Nasal Cannula 30 70 09/30/24 23:42 High Flow Nasal Cannula 09/30/24 23:00 High Flow Nasal Cannula 09/30/24 22:27 High Flow Nasal Cannula 30 50 09/30/24 21:00 Non-rebreather 12 09/30/24 20:30 Non-rebreather 15 09/30/24 20:23 Non-rebreather 15 09/30/24 20:09 09/30/24 19:59 Nasal Cannula 5 09/30/24 19:49 Oxymask 8 Laboratory Results Reviewed Diagnostic Findings Reviewed Medications Administered See [facility] Coding Level of Care Code 97485 CRITICAL CARE 1ST 30-74M Diagnoses Acute on chronic respiratory failure with hypoxemia J96.21 Right heart failure due to pulmonary hypertension I27.29; I50.810 RUQ pain R10.11 Dehydration E86.0 Melena K92.1 NSTEMI (non-ST elevated myocardial infarction) I21.4 Acute renal failure N17.9 Time Spent (min) 36
[2024-10-01] MEDS ORDERED: ALBUT/IPRATROP 3MG/0.5MG NEB 3 ML VIAL NEB PRN ×2 (03:00→03:04)
[2024-10-01 03:03] LABS: BUN Creatinine Ratio 30.3 (10-20); Calcium 7.5 mg/dl (8.6-10.3); Creatinine Clr Calc Pharmacy 26.8 ml/min; Potassium 4.4 mmol/L (3.5-5.1)
[2024-10-01] MEDS ORDERED: PIPERACILLIN/TAZOBACTAM 4.5 GM/100 ML BAG IV SCH (03:04)
[2024-10-01] MEDS ORDERED: POLYETHYLENE (MIRALAX) 17 GM PACK PO PRN (03:04)
[2024-10-01] MEDS ORDERED: ONDANSETRON INJ 2 MG/ML 2 ML VIAL IV PRN (03:04)
[2024-10-01] MEDS: NOREPINEPHRINE/D5W 4 MG/250 ML PLCT IV SCH (03:11)
[2024-10-01 03:30] LABS: Thyroid Stimulating Hormone 1.054 uIu/ml (0.300-4.500)
[2024-10-01] MEDS: ICU Protocol for HYPERglycemia SCH (03:38)
[2024-10-01] MEDS: LACTATED RINGER'S 1,000 ML IV SCH (03:42)
[2024-10-01] MEDS: ALBUT/IPRATROP 3MG/0.5MG NEB 3 ML VIAL NEB SCH (04:07)
[2024-10-01 04:29] LABS: Appearance Urine Clear (Clear); Bacteria Urine Automated None Seen (None Seen); Bilirubin Urine 1+ (Negative); Blood Urine Negative (Negative); Cast Urine Automated >20 /lpf (0-2); Color Urine Dark Yellow; Glucose Urine UA Negative (Negative); Ketones Urine Trace (Negative); Leukocyte Esterase Urine Trace (Negative); Nitrite Urine Negative (Negative); Protein Urine 1+ (Negative); Specific Gravity Urine 1.019 (1.000-1.030); Urobilinogen Urine Negative (Negative); WBC Urine Automated 0-5 /hpf (0-5)
[2024-10-01 05:10] LABS: HCO3 VBG 21 mmol/L; Oxygen Saturation VBG 76.8 %; PCO2 VBG 44 mmHg (38-50); PO2 VBG 50 mmHg; pH VBG 7.28 (7.36-7.41)
--- NOTE | 2024-10-01 05:15 | Billing Data ---
Date of Service September 30, 2024 Coding Level of Care Code 95949 INT INP/OBS CARE
[2024-10-01 05:20] LABS: Hematocrit (blood only) 38.4 % (37.0-47.0); Hemoglobin 13.3 g/dl (12.0-16.0); Mean Corpuscular Hemoglobin 30.2 pg (25.0-34.0); Mean Corpuscular Hgb Conc 34.6 g/dL (32.0-36.0); Mean Corpuscular Volume 87.1 fL (80.0-100.0); Mean Platelet Volume 12.2 fL (9.4-12.4); Nucleated RBC # (auto) 0.02 K/uL (0.00-0.12); Nucleated RBC % (auto) 0.1 %; Platelet Count 159 K/uL (130-400); RDW Coefficient of Variation 15.4 % (11.5-14.5); RDW Standard Deviation 48.5 fL (36.4-46.3); Red Blood Count 4.41 M/uL (4.20-5.40); White Blood Count 14.12 K/ul (4.8-10.8)
[2024-10-01 05:42] LABS: Albumin Globulin Ratio 1.5 (0.9-2); Albumin Level 3.4 gm/dl (3.4-5.0); BUN Creatinine Ratio 31.1 (10-20); Bilirubin,Total 1.2 mg/dl (0.2-1.0); Creatinine Clr Calc Pharmacy 24.8 ml/min; Globulin 2.3 gm/dl (2.5-4.0); Phosphorus 5.6 mg/dl (2.5-4.9); Potassium 4.7 mmol/L (3.5-5.1); Total Protein 5.7 gm/dl (6.0-8.3)
[2024-10-01 05:52] LABS: Basophils # (auto) 0.07 K/uL (0.00-0.20); Basophils % (auto) 0.5 %; Dohle Bodies 1+; Echinocytes 1+; Eosinophils # (auto) 0.01 K/uL (0.00-0.50); Eosinophils % (auto) 0.1 %; Immature Granulocytes # (auto) 0.06 K/uL (0.01-0.20); Immature Granulocytes % (auto) 0.4 %; Lymphocytes # (auto) 1.57 K/uL (1.20-3.40); Lymphocytes % (auto) 11.1 %; Monocytes # (auto) 0.44 K/uL (0.11-0.59); Monocytes % (auto) 3.1 %; Neutrophils # (auto) 11.97 K/uL (1.40-6.50); Neutrophils % (auto) 84.8 %; Polychromasia 1+
--- NOTE | 2024-10-01 06:27 | Electrocardiogram Report ---
Test Reason : Blood Pressure : */* mmHG Vent. Rate : 77 BPM Atrial Rate : 77 BPM P-R Int : 148 ms QRS Dur : 82 ms QT Int : 396 ms P-R-T Axes : 57 101 32 degrees QTcB Int : 448 ms Normal sinus rhythm Left atrial enlargement Rightward axis Nonspecific ST and T wave abnormality Abnormal ECG When compared with ECG of 02-Jul-2024 06:41, No significant change was found Confirmed by David Francis ([id number]) on 10/01/2024 6:27:29 AM Referred By: REFERRED SELF Confirmed By: David Francis
[2024-10-01] MEDS ORDERED: ALBUTEROL 0.5% NEB SOLN 2.5 MG/0.5 ML VIAL NEB SCH (07:00)
[2024-10-01] MEDS: BUDESONIDE 0.5 MG/2 ML VIAL (PULMICORT) NEB SCH (07:02)
[2024-10-01] MEDS: FORMOTEROL 20 MCG/2 ML VIAL NEB SCH (07:02)
--- NOTE | 2024-10-01 07:14 | Ultrasound Report ---
EXAM: US liver CLINICAL HISTORY: Elevated bilirubin and transaminitis, Right upper qudrant pain. TECHNIQUE: Limited ultrasound of the liver and gallbladder was performed in greyscale and Doppler. Multiple images were obtained in transverse and longitudinal planes. COMPARISON: 07/01/2024. FINDINGS: Limited portable evaluation performed in ICU setting. Examination limited by inability to position or awaken patient for optimal views and deep inspiration. Liver: Liver size: 18.2 cm in length. The liver appears mildly enlarged with increased echogenicity, suggestive of possible hepatic steatosis. No focal lesions, cysts, or masses identified. Hepatic vasculature appears grossly normal on limited evaluation. Gallbladder: Distended gallbladder. Interval is new. Gallbladder wall measures 2.2 mm. Multiple shadowing echogenic foci consistent with gallstones are present. Sludge also noted. No pericholecystic fluid identified. Lopez's sign could not be assessed due to nonresponsive patient. Biliary Tree: Common bile duct diameter measures up to 6 mm. Sludge is noted inside it. The Pancreas: The pancreas is not visualized due to overlying bowel gas. Right Kidney: Right kidney is visualized. No hydronephrosis is identified. IMPRESSION: 1. Mild hepatomegaly with hepatic steatosis. 2. Cholelithiasis and sludge are noted. Distended gallbladder (new). Lopez's sign could not be assessed. The possibility of cholecystitis can not be excluded, need clinical correlation. 3. Common bile duct is borderline prominent with sludge inside it. Laboratory correlation is advised. 4. The pancreas is not visualized due to overlying bowel gas. 5. Otherwise, no significant interval changes. Electronically signed by Ambrocio Merrill 10-01-2024 07:14 AM
[2024-10-01] MEDS ORDERED: ICU Protocol for HYPERglycemia SCH ×2 (07:30)
[2024-10-01 07:56] LABS: Adenovirus PCR Not Detected (NotDetected); Bordetella parapertussis PCR Not Detected (NotDetected); Bordetella pertussis PCR Not Detected (NotDetected); Chlamydia pneumoniae PCR Not Detected (NotDetected); Coronavirus 229E PCR Not Detected (NotDetected); Coronavirus CoV-2 (COVID19)PCR Not Detected (NotDetected); Coronavirus HKU1 PCR Not Detected (NotDetected); Coronavirus NL63 PCR Not Detected (NotDetected); Coronavirus OC43PCR Not Detected (NotDetected); Human Metapneumovirus PCR Not Detected (NotDetected); Influenza A PCR Not Detected (NotDetected); Influenza B PCR Not Detected (NotDetected); Mycoplasma pneumoniae PCR Not Detected (NotDetected); Parainfluenza Virus 1 PCR Not Detected (NotDetected); Parainfluenza Virus 2 PCR Not Detected (NotDetected); Parainfluenza Virus 3 PCR Not Detected (NotDetected); Parainfluenza Virus 4 PCR Not Detected (NotDetected); Respiratory Syncytial VirusPCR Not Detected (NotDetected); Rhinovirus/Enterovirus PCR Not Detected (NotDetected)
--- NOTE | 2024-10-01 08:19 | Hospitalist Progress Note ---
Date of Service October 01, 2024 Assessment & Plan (1) Acute respiratory failure with hypoxia: (2) COPD with emphysema: (3) Melena: (4) Elevated troponin: (5) Dehydration: Plan Patient is a 59-year-old female with past medical history of rheumatoid arthritis, COPD with emphysema (baseline oxygen requirement of nasal cannula at 3 lpm), interstitial lung disease, hypertension, GERD, VINOD, and anxiety who was admitted due to AHRF. AHRF // PNA // COPD exacerbation (+) SIRS - Elevated procal (~10) and CT suggestive of pneumonia - +SIRS on admission: leukocytosis (likely affected by PO prednisone use prior to admission), and temp < 36 C; ?respiratory source given pneumonia noted on chest CT - Cefepime and Azithromycin- adjust based on culture results - Blood cultures pending - Oxygen supplementation as needed with goal O2 at 88-92%; currently on 8L NC - IS and FV - Duoneb QID - Continue home inhalers - S/p Solumedrol 60 mg IV in ED; additional PO/IV steroids deferred - Repeat AM procal Hyponatremia, ANISH, relative hypotension: - Cr was 0.94 on 07/2024; 2.50 on admission - Suspect prerenal etiology secondary to poor PO intake and volume losses - likely cause of hyponatremia as well, ?with some component of SIADH - s/p 2.5L fluid, additional fluids held given suspicion for fluid overload - Fluid restriction - Start Midodrine 5mg TID - Target MAP>65 - Recheck AM labs ?Melena - Hgb stable, lower suspicion for GI bleed - Protonix 80 mg IV bolus then 40 mg IV bid N/V - N/V + poor PO intake likely explains electrolyte changes on admission - Zofran prn Elevated Troponin - No chest pain or other sxs of ischemia - EKG w/o ischemic changes - Peaked at 625.5 - Suspect related to demand ischemia HTN - Hold home losartan due to relative hypotension CHF - TTE from 07/01/2024 showing EF of 55-60%, normal LV systolic function, moderately dilated RV with mildly decreased systolic function, mildly dilated RA, and elevated RV systolic pressure at 55-60 mmHg - Furosemide held on admission - consider resuming based on serial assessments of volume status and BP - Monitor daily weights and Is/Os Weakness - Noted in the last 1-2 weeks with associated falls - PT/OT Dispo: ICU Diet: Low sodium, fluid restriction VTE ppx: Held d/t concern for possible GI bleed FULL CODE Admission and Anticipated Discharge Date Admission Date: October 01, 2024 Supervising Physician Co-Signing Physician Notes I personally examined the patient and verified all langley points of history and exam, discussed case, and agree with decision making with Dr Jackson feeling better just very fatigued. breathing feels better vitals noted awakens but very groggy nad but fatigued. breathing unlabored no accessory muscles but does have coarse breath sounds throughout. sepsis due to pneumonia (lower lobe infiltrates, WBC/RR as SIRS criteria) POA - still requiring significant supportive care but doing better. continue current care otherwise as above Subjective Patient evaluated at bedside, lethargic and only able to provide brief responses before falling back asleep. Currently on CPAP, notes overall improvement in shortness of breath. Denies current abdominal pain, denies further N/V. Review of Systems Review of Systems: As per HPI Physical Exam Physical Exam: Constitutional: no acute distress HEENT: NCAT, no conjunctival injection CV: extremities well-perfused Resp: CPAP mask in place, diffusely coarse breath sounds bilaterally, no accessory muscle use GI: nondistended MSK: no gross deformities Skin: warm, dry, no rash appreciated Neuro: AOx3, no focal neurologic deficit appreciated Results & Data Results & Data Vital Signs (Past 12 Hours) Vital Signs Temp Pulse Pulse Resp BP BP Pulse Ox 10/01/24 08:12 36.7 C 71 11 L 90 10/01/24 08:00 96/61 L 10/01/24 08:00 10/01/24 08:00 10/01/24 08:00 71 10/01/24 07:51 36.3 C L 71 8 L 90 10/01/24 07:30 98/61 L 10/01/24 07:27 36.3 C L 70 9 L 91 10/01/24 07:18 36.3 C L 67 7 L 92 10/01/24 07:05 70 20 91 10/01/24 07:04 70 20 91 10/01/24 07:00 101/50 L 10/01/24 06:53 36.1 C L 69 10 L 101/59 L 91 10/01/24 04:33 36.4 C L 71 10 L 94 10/01/24 04:30 95/66 L 10/01/24 04:30 95/66 L 10/01/24 04:30 95/66 L 10/01/24 04:30 95/66 L 10/01/24 04:30 95/66 L 10/01/24 04:30 95/66 L 10/01/24 04:30 95/66 L 10/01/24 04:30 95/66 L 10/01/24 04:30 95/66 L 10/01/24 04:30 95/66 L 10/01/24 04:30 95/66 L 10/01/24 04:30 95/66 L 10/01/24 04:21 36.3 C L 73 19 93 10/01/24 04:00 87/58 L 10/01/24 04:00 87/58 L 10/01/24 04:00 87/58 L 10/01/24 04:00 87/58 L 10/01/24 04:00 87/58 L 10/01/24 04:00 87/58 L 10/01/24 04:00 87/58 L 10/01/24 04:00 36.4 C L 71 19 93 10/01/24 04:00 71 10/01/24 04:00 36.5 C 70 18 87/59 L 92 10/01/24 03:48 36.3 C L 70 19 94 10/01/24 03:45 64 19 91 10/01/24 03:41 97/61 L 10/01/24 03:41 97/61 L 10/01/24 03:39 36.0 C L 68 18 93 10/01/24 03:31 97/56 L 10/01/24 03:31 97/56 L 10/01/24 03:31 97/56 L 10/01/24 03:30 10/01/24 03:30 10/01/24 03:21 70 19 92 10/01/24 03:15 102/10/01/24 03:15 102/10/01/24 03:15 102/10/01/24 03:15 102/10/01/24 03:15 102/10/01/24 03:15 10210/01/24 03:15 69 19 96 10/01/24 03:11 36.3 C L 69 18 102/81 95 10/01/24 03:09 69 19 92 10/01/24 03:06 70 17 96 10/01/24 03:03 36.3 C L 24 89/68 L 92 10/01/24 02:54 10/01/24 02:30 69 20 81/60 L 90 10/01/24 01:56 70 89/76 L 10/01/24 01:43 71 75/60 L 94 10/01/24 01:17 35.6 C L 75 19 86/59 L 93 10/01/24 00:01 67 10/01/24 00:00 74 20 124/101 H 95 09/30/24 23:49 72 16 93 09/30/24 23:42 69 20 108/83 99 09/30/24 23:00 72 24 108/81 90 09/30/24 22:27 74 16 94 09/30/24 21:00 78 16 121/74 97 09/30/24 20:30 76 24 115/78 97 09/30/24 20:23 90 O2 Del Method O2 Flow Rate FiO2 10/01/24 08:12 10/01/24 08:00 10/01/24 08:00 CPAP 10/01/24 08:00 CPAP 10/01/24 08:00 10/01/24 07:51 10/01/24 07:30 10/01/24 07:27 10/01/24 07:18 10/01/24 07:05 40 10/01/24 07:04 BiPAP 40 10/01/24 07:00 10/01/24 06:53 BiPAP, CPAP 40 10/01/24 04:33 CPAP 40 10/01/24 04:30 10/01/24 04:30 10/01/24 04:30 10/01/24 04:30 10/01/24 04:30 10/01/24 04:30 10/01/24 04:30 10/01/24 04:30 10/01/24 04:30 10/01/24 04:30 10/01/24 04:30 10/01/24 04:30 10/01/24 04:21 CPAP 40 10/01/24 04:00 10/01/24 04:00 10/01/24 04:00 10/01/24 04:00 10/01/24 04:00 10/01/24 04:00 10/01/24 04:00 10/01/24 04:00 CPAP 40 10/01/24 04:00 10/01/24 04:00 CPAP 40 10/01/24 03:48 10/01/24 03:45 45 10/01/24 03:41 10/01/24 03:41 10/01/24 03:39 CPAP 40 10/01/24 03:31 10/01/24 03:31 10/01/24 03:31 10/01/24 03:30 CPAP 40 10/01/24 03:30 CPAP 40 10/01/24 03:21 10/01/24 03:15 10/01/24 03:15 10/01/24 03:15 10/01/24 03:15 10/01/24 03:15 10/01/24 03:15 10/01/24 03:15 10/01/24 03:11 CPAP 40 10/01/24 03:09 High Flow Nasal Cannula 40 70 10/01/24 03:06 10/01/24 03:03 High Flow Nasal Cannula 40 10/01/24 02:54 High Flow Nasal Cannula 10/01/24 02:30 High Flow Nasal Cannula 10/01/24 01:56 10/01/24 01:43 High Flow Nasal Cannula 10/01/24 01:17 Room Air 10/01/24 00:01 10/01/24 00:00 High Flow Nasal Cannula 09/30/24 23:49 High Flow Nasal Cannula 30 70 09/30/24 23:42 High Flow Nasal Cannula 09/30/24 23:00 High Flow Nasal Cannula 09/30/24 22:27 High Flow Nasal Cannula 30 50 09/30/24 21:00 Non-rebreather 12 09/30/24 20:30 Non-rebreather 15 09/30/24 20:23 Non-rebreather 15 Resident Activity Tracking Resident Involvement: Resident Care Provided Care Provided: Adult Hospital Medicine
[2024-10-01] MEDS: PANTOprazole 40 MG/10 ML SYR IV SCH (08:41)
[2024-10-01] MEDS ORDERED: FLUTICASONE FUROATE 100MCG 14 PUFFS/INHALER INH SCH (09:00)
[2024-10-01] MEDS ORDERED: HEPARIN SOD 5,000 UNIT/0.5 ML VIAL SQ SCH (09:00)
[2024-10-01] MEDS ORDERED: UMECLIDINIUM/VILANTEROL 62.5/25MCG 7 PUFFS/INHALER INH SCH (09:00)
[2024-10-01] MEDS ORDERED: NON-FORMULARY MEDICATION (Fluticasone-Umeclidin-Vilanter [Trelegy Ellipta] 100-62.5-25 mcg INH SCH (09:00)
[2024-10-01] MEDS ORDERED: AZITHROMYCIN 500 MG/255 ML BAG IV SCH (09:00)
[2024-10-01] MEDS: guaiFENesin 600 MG TABCR PO SCH (09:26)
[2024-10-01] MEDS: UMECLIDINIUM BROMIDE 62.5MCG/BLISTER 7 PUFFS/INHALER INH SCH (09:27)
[2024-10-01] MEDS ORDERED: CEFEPIME 2000MG 2,000 MG/20 ML SYR IV SCH (10:45)
[2024-10-01] MEDS: CEFEPIME 1000MG 1,000 MG/10 ML SYR IV SCH (11:30)
[2024-10-01] MEDS: MIDODRINE HCL 2.5 MG TAB PO SCH (11:30)
--- NOTE | 2024-10-01 17:32 | Billing Data ---
Date of Service October 01, 2024 Coding Level of Care Code 70060 SUB INP/OBS CARE
[2024-10-02 05:20] LABS: Base Excess VBG -1.5 mEq/L; HCO3 VBG 24 mmol/L; Oxygen Saturation VBG 87.6 %; PCO2 VBG 44 mmHg (38-50); PO2 VBG 57 mmHg; pH VBG 7.35 (7.36-7.41)
[2024-10-02 05:39] LABS: Basophils # (auto) 0.03 K/uL (0.00-0.20); Basophils % (auto) 0.2 %; Hemoglobin 13.6 g/dl (12.0-16.0); Immature Granulocytes % (auto) 0.5 %; Lymphocytes # (auto) 1.18 K/uL (1.20-3.40); Lymphocytes % (auto) 6.5 %; Mean Corpuscular Hgb Conc 34.9 g/dL (32.0-36.0); Mean Corpuscular Volume 86.1 fL (80.0-100.0); Mean Platelet Volume 11.6 fL (9.4-12.4); Monocytes # (auto) 0.89 K/uL (0.11-0.59); Monocytes % (auto) 4.9 %; Neutrophils # (auto) 16.04 K/uL (1.40-6.50); Neutrophils % (auto) 87.9 %; Nucleated RBC # (auto) 0.04 K/uL (0.00-0.12); Nucleated RBC % (auto) 0.2 %; Platelet Count 136 K/uL (130-400); RDW Coefficient of Variation 15.7 % (11.5-14.5); RDW Standard Deviation 48.6 fL (36.4-46.3); Red Blood Count 4.53 M/uL (4.20-5.40); White Blood Count 18.24 K/ul (4.8-10.8)
[2024-10-02 05:50] LABS: Albumin Globulin Ratio 1.3 (0.9-2); Albumin Level 3.2 gm/dl (3.4-5.0); Bilirubin,Total 0.9 mg/dl (0.2-1.0); Calcium 8.4 mg/dl (8.6-10.3); Creatinine Clr Calc Pharmacy 25.5 ml/min; Globulin 2.5 gm/dl (2.5-4.0); Potassium 4.8 mmol/L (3.5-5.1); Total Protein 5.7 gm/dl (6.0-8.3)
--- NOTE | 2024-10-02 06:44 | Hospitalist Progress Note ---
Date of Service October 02, 2024 Assessment & Plan (1) Acute respiratory failure with hypoxia: (2) COPD with emphysema: (3) Melena: (4) Elevated troponin: (5) Dehydration: Plan Patient is a 59-year-old female with past medical history of rheumatoid arthritis, COPD with emphysema (baseline oxygen requirement of nasal cannula at 3 lpm), interstitial lung disease, hypertension, GERD, VINOD, and anxiety who was admitted due to AHRF. AHRF // PNA // COPD exacerbation (+) SIRS - Elevated procal on admission (~10) and CT suggestive of pneumonia - +SIRS on admission: leukocytosis (likely affected by PO prednisone use prior to admission), and temp < 36 C; ?respiratory source given pneumonia noted on chest CT - Continue Cefepime and Azithromycin - Blood cultures negative at 24H - Oxygen supplementation as needed with goal O2 at 88-92% - IS and FV - Duoneb QID - Continue home inhalers - S/p Solumedrol 60 mg IV in ED; additional PO/IV steroids deferred - Repeat AM labs Hyponatremia, ANISH, relative hypotension: - Cr was 0.94 on 07/2024; 2.50 on admission - Suspect prerenal etiology secondary to poor PO intake and volume losses - likely cause of hyponatremia as well, ?with some component of SIADH - s/p 2.5L fluid at time of admission - Difficult to determine net fluid balance - impression favors pt being clinically dry, will administer 500cc NSS @100cc/hr and reassess - Continue Midodrine 5mg TID - Target MAP>65 - Recheck AM labs ?Melena - Hgb stable, lower suspicion for GI bleed - black stool more likley d/t Pepto Bismol - Protonix 40 mg IV bid N/V - Resolved: - N/V + poor PO intake likely explains electrolyte changes on admission - Zofran prn Elevated Troponin - Resolved: - No chest pain or other sxs of ischemia - EKG w/o ischemic changes - Peaked at 625.5 - Suspect related to demand ischemia HTN - Hold home losartan due to relative hypotension CHF - TTE from 07/01/2024 showing EF of 55-60%, normal LV systolic function, moderately dilated RV with mildly decreased systolic function, mildly dilated RA, and elevated RV systolic pressure at 55-60 mmHg - Furosemide held on admission - consider resuming based on serial assessments of volume status and BP - Monitor daily weights and Is/Os Chronic Pain: - Patient much more alert today, resume Suboxone and Gabapentin - PRN Modafinil Weakness - Noted in the last 1-2 weeks with associated falls - PT/OT - CM following for dispo planning Diet: HH VTE ppx: Heparin FULL CODE Admission and Anticipated Discharge Date Admission Date: October 01, 2024 Supervising Physician Co-Signing Physician Notes I personally examined the patient and verified all langley points of history and exam, discussed case, and agree with decision making with Dr Jackson overall feeling better, breathing feels better, getting up and out of bed/moving more felt good vitals noted nad heent nc at mmm lungs with base rales mostly dry sounding but also sl areas of mucous/wetter sounding no other r/r/w no accessory muscles good effort. far less groggy. mental status intact. no pallor or icterus no focal neuro deficits. sepsis due to pneumonia (lower lobe infiltrates, WBC/RR as SIRS criteria) POA - showing slow and steady improvement. baseline ~3.5L O2 at home, now down to 6. continue current care. PT/OT eval and treat otherwise as above Subjective Patient evaluated at bedside, much more alert today, reports feeling much better today. SOB improving. Denies orthopnea. Mild LE swelling, atypical per patient. At baseline, takes Lasix 5 days per week + PRN for weight gain - has not taken for roughly past week. Dry weight ~155 lbs. Denies current abdominal pain, denies further N/V. Review of Systems Review of Systems: As per HPI Physical Exam Physical Exam: Constitutional: no acute distress HEENT: NCAT, no conjunctival injection CV: extremities well-perfused Resp: Diminished breath sounds bilaterally, no accessory muscle use. No wheezes appreciated. GI: nondistended MSK: no gross deformities Skin: warm, dry, no rash appreciated Neuro: AOx3, no focal neurologic deficit appreciated Results & Data Results & Data Vital Signs (Past 12 Hours) Vital Signs Temp Pulse Pulse Resp BP Pulse Ox O2 Del Method 10/02/24 04:16 71 10 L 90 10/02/24 04:03 36.4 C L 70 10 L 90 10/02/24 04:00 119/79 10/02/24 04:00 119/79 10/02/24 04:00 119/79 10/02/24 04:00 119/79 10/02/24 04:00 119/79 10/02/24 04:00 119/79 10/02/24 04:00 119/79 10/02/24 04:00 119/79 10/02/24 03:03 36.3 C L 72 12 90 10/02/24 02:30 36.3 C L 76 10 L 89 L 10/02/24 01:48 72 14 91 BiPAP 10/02/24 00:36 36.3 C L 69 12 92 10/02/24 00:00 36.4 C L 67 12 94 10/02/24 00:00 97/66 L 10/02/24 00:00 97/66 L 10/02/24 00:00 97/66 L 10/02/24 00:00 97/66 L 10/02/24 00:00 97/66 L 10/02/24 00:00 97/66 L 10/02/24 00:00 97/66 L 10/02/24 00:00 97/66 L 10/02/24 00:00 97/66 L 10/02/24 00:00 97/66 L 10/02/24 00:00 97/66 L 10/02/24 00:00 97/66 L 10/02/24 00:00 97/66 L 10/02/24 00:00 97/66 L 10/02/24 00:00 97/66 L 10/02/24 00:00 97/66 L 10/02/24 00:00 97/66 L 10/01/24 23:51 36.3 C L 67 12 93 10/01/24 23:42 70 10/01/24 23:24 36.4 C L 69 12 92 10/01/24 23:14 76 11 L 95 10/01/24 23:04 108/82 10/01/24 23:04 108/82 10/01/24 23:04 108/82 10/01/24 23:04 108/82 10/01/24 23:04 108/82 10/01/24 23:04 108/82 CPAP 10/01/24 23:03 36.4 C L 76 14 94 10/01/24 22:00 36.2 C L 72 16 94 10/01/24 20:17 69 17 94 Nasal Cannula 10/01/24 20:00 36.4 C L 75 16 106/80 92 High Flow Nasal Cannula 10/01/24 19:35 High Flow Nasal Cannula O2 Flow Rate FiO2 10/02/24 04:16 35 10/02/24 04:03 10/02/24 04:00 10/02/24 04:00 10/02/24 04:00 10/02/24 04:00 10/02/24 04:00 10/02/24 04:00 10/02/24 04:00 10/02/24 04:00 10/02/24 03:03 10/02/24 02:30 10/02/24 01:48 40 10/02/24 00:36 10/02/24 00:00 10/02/24 00:00 10/02/24 00:00 10/02/24 00:00 10/02/24 00:00 10/02/24 00:00 10/02/24 00:00 10/02/24 00:00 10/02/24 00:00 10/02/24 00:00 10/02/24 00:00 10/02/24 00:00 10/02/24 00:00 10/02/24 00:00 10/02/24 00:00 10/02/24 00:00 10/02/24 00:00 10/02/24 00:00 10/01/24 23:51 10/01/24 23:42 10/01/24 23:24 10/01/24 23:14 35 10/01/24 23:04 10/01/24 23:04 10/01/24 23:04 10/01/24 23:04 10/01/24 23:04 10/01/24 23:04 40 10/01/24 23:03 10/01/24 22:00 10/01/24 20:17 8 10/01/24 20:00 8 10/01/24 19:35 8 Resident Activity Tracking Resident Involvement: Resident Care Provided Care Provided: Adult Hospital Medicine
--- NOTE | 2024-10-02 07:26 | Pulmonology Progress Note ---
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 Has a history of rheumatoid arthritis. RECOMMENDATIONS: 1. Hypoxemic respiratory failure - Acute on chronic in the setting of COPD exacerbation and likely underlying pneumonia process. Continue to titrate down supplemental oxygen as tolerated with a goal saturation of 88% or above. 2. Pulmonary hypertension - Prior echocardiogram demonstrated RVSP of 50-60 mmHg. No echocardiogram during this visit, however concerns for elevated pressures given current volume status. Unfortunately, her renal injury makes managing volume status difficult. 3. COPD - As previously noted with significant emphysematous lung changes appreciated. She is not bronchospastic on exam today. Uncertain of the utility of steroids at this juncture. Continue with nebulized budesonide, Perforomist, and as needed DuoNebs. 4. Pneumonia - Certainly difficult to delineate acute infectious process superimposed on chronic interstitial lung disease changes. Given her elevated white count, procalcitonin, and responsiveness to treatment, would continue with antibiotic therapy for now. Was transition to cefepime and azithromycin yesterday. Given her structural lung changes, likely makes sense to continue with antipseudomonal agent for now. Patient unable to expectorate sputum for sampling. Order placed if she is able to do so. 5. Interstitial lung disease - Is currently managed in the outpatient setting by Dr. Hawkins. She has also met with Juan via telehealth visit. Will defer to them for continued management in the outpatient setting. Thank you for allowing us to participate in the care of this patient. Pulmonary medicine will continue to follow along. Admission and Anticipated Discharge Date Admission Date: October 01, 2024 Subjective Patient seen and evaluated at bedside. She reports improvement in her dyspnea. She still with a cough, but reports it is not productive. She reports feeling much less lethargic today. No complaints of fevers, chills, chest pain, or other symptoms. No adverse events noted overnight. Review of Systems Review of Systems: Per subjective Physical Exam Physical Exam: VITAL SIGNS Vital signs and nursing notes were reviewed. GENERAL 59-year-old female appearing her stated age who is in no acute distress. Communicates well with provider and answers questions appropriately. SKIN Without rashes or lesions. NOSE Midline and without cyanosis. MOUTH/OROPHARYNX Without perioral cyanosis. NECK Neck with FROM. LUNGS Chest wall evaluation demonstrates normal chest wall A:P diameter. Auscultation reveals Velcro-like crackles appreciated in the posterior lung kowalski throughout. CARDIAC RRR with S1/S2. No murmur, rubs, or gallops appreciated. EXTREMITIES Nail clubbing not present. No peripheral cyanosis. Slight pretibial edema present. +3/5 radial palpated throughout. PSYCH A&Ox3 and cooperates fully with examiner. Pt is very pleasant and interacts well with examiner. Results & Data Results & Data Vital Signs (Past 12 Hours) Vital Signs Temp Pulse Pulse Resp BP Pulse Ox O2 Del Method 10/02/24 07:15 80 18 94 Nasal Cannula 10/02/24 04:16 71 10 L 90 10/02/24 04:03 36.4 C L 70 10 L 90 10/02/24 04:00 119/79 10/02/24 04:00 119/79 10/02/24 04:00 119/79 10/02/24 04:00 119/79 10/02/24 04:00 119/79 10/02/24 04:00 119/79 10/02/24 04:00 119/79 10/02/24 04:00 119/79 10/02/24 03:03 36.3 C L 72 12 90 10/02/24 02:30 36.3 C L 76 10 L 89 L 10/02/24 01:48 72 14 91 BiPAP 10/02/24 00:36 36.3 C L 69 12 92 10/02/24 00:00 36.4 C L 67 12 94 10/02/24 00:00 97/66 L 10/02/24 00:00 97/66 L 10/02/24 00:00 97/66 L 10/02/24 00:00 97/66 L 10/02/24 00:00 97/66 L 10/02/24 00:00 97/66 L 10/02/24 00:00 97/66 L 10/02/24 00:00 97/66 L 10/02/24 00:00 97/66 L 10/02/24 00:00 97/66 L 10/02/24 00:00 97/66 L 10/02/24 00:00 97/66 L 10/02/24 00:00 97/66 L 10/02/24 00:00 97/66 L 10/02/24 00:00 97/66 L 10/02/24 00:00 97/66 L 10/02/24 00:00 97/66 L 10/01/24 23:51 36.3 C L 67 12 93 10/01/24 23:42 70 10/01/24 23:24 36.4 C L 69 12 92 10/01/24 23:14 76 11 L 95 10/01/24 23:04 108/82 10/01/24 23:04 108/82 10/01/24 23:04 108/82 10/01/24 23:04 108/82 10/01/24 23:04 108/82 10/01/24 23:04 108/82 CPAP 10/01/24 23:03 36.4 C L 76 14 94 10/01/24 22:00 36.2 C L 72 16 94 10/01/24 20:17 69 17 94 Nasal Cannula 10/01/24 20:00 36.4 C L 75 16 106/80 92 High Flow Nasal Cannula 10/01/24 19:35 High Flow Nasal Cannula O2 Flow Rate FiO2 10/02/24 07:15 7 10/02/24 04:16 35 10/02/24 04:03 10/02/24 04:00 10/02/24 04:00 10/02/24 04:00 10/02/24 04:00 10/02/24 04:00 10/02/24 04:00 10/02/24 04:00 10/02/24 04:00 10/02/24 03:03 10/02/24 02:30 10/02/24 01:48 40 10/02/24 00:36 10/02/24 00:00 10/02/24 00:00 10/02/24 00:00 10/02/24 00:00 10/02/24 00:00 10/02/24 00:00 10/02/24 00:00 10/02/24 00:00 10/02/24 00:00 10/02/24 00:00 10/02/24 00:00 10/02/24 00:00 10/02/24 00:00 10/02/24 00:00 10/02/24 00:00 10/02/24 00:00 10/02/24 00:00 10/02/24 00:00 10/01/24 23:51 10/01/24 23:42 10/01/24 23:24 10/01/24 23:14 35 10/01/24 23:04 10/01/24 23:04 10/01/24 23:04 10/01/24 23:04 10/01/24 23:04 10/01/24 23:04 40 10/01/24 23:03 10/01/24 22:00 10/01/24 20:17 8 10/01/24 20:00 8 10/01/24 19:35 8 PG Care Time/CCT Total # of Minutes Spent Total Time Spent with Patient: Total time spent is greater than 50% in coordination of care (as documented) at patient's floor/unit and/or counseling patient: Coding Level of Care Code 79270 SUB INP/OBS CARE 2/35MIN Diagnoses Acute on chronic respiratory failure with hypoxemia J96.21 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
[2024-10-02] MEDS: AZITHROMYCIN 250 MG TAB PO SCH (07:39)
[2024-10-02] MEDS: PANTOprazole 40 MG/10 ML SYR IV SCH (07:50)
--- NOTE | 2024-10-02 11:33 | Billing Data ---
Date of Service October 02, 2024 Coding Level of Care Code 63456 SUB INP/OBS CARE
--- NOTE | 2024-10-02 11:34 | Billing Data ---
Date of Service October 02, 2024 Coding Level of Care Code 86612 SUB INP/OBS CARE
[2024-10-02] MEDS: SODIUM CHLORIDE 0.9% 500 ML IV SCH (12:39)
[2024-10-02] MEDS: BUPRENORPHINE/NALOXONE 8/2 MG TAB SL SCH (13:23)
[2024-10-02] MEDS: GABAPENTIN 300 MG CAP PO SCH (13:23)
[2024-10-02] MEDS: modafiniL 100 MG TAB PO PRN (13:45)
[2024-10-02] MEDS ORDERED: cefTRIAXone SODIUM 2,000 MG/50 ML BAG IV SCH (21:00)
[2024-10-02] MEDS: HEPARIN SOD 5,000 UNIT/0.5 ML VIAL SQ SCH (21:12)
[2024-10-02] MEDS: ACETAMINOPHEN 325 MG TAB PO PRN (21:33)
[2024-10-02] MEDS ORDERED: AZITHROMYCIN 250 MG in DEXTROSE 5% 250 ML IV SCH (22:00)
[2024-10-02] MEDS: FIRST - Mouthwash BLM 5 ML UDP PO SCH (23:27)
[2024-10-03] MEDS: ALBUT/IPRATROP 3MG/0.5MG NEB 3 ML VIAL NEB PRN (00:55)
[2024-10-03 01:15] LABS: Base Excess VBG 0.6 mEq/L; HCO3 VBG 27 mmol/L; PCO2 VBG 47 mmHg (38-50); PO2 VBG 54 mmHg; pH VBG 7.36 (7.36-7.41)
[2024-10-03 01:36] LABS: BUN Creatinine Ratio 44.4 (10-20); Calcium 8.5 mg/dl (8.6-10.3); Creatinine Clr Calc Pharmacy 46.9 ml/min; Magnesium 1.6 mg/dl (1.7-2.4); Potassium 4.5 mmol/L (3.5-5.1)
[2024-10-03] MEDS: MAGNESIUM SULFATE / D5W 1 GM/100 ML BAG IV SCH (02:30)
--- NOTE | 2024-10-03 07:00 | Hospitalist Progress Note ---
Date of Service October 03, 2024 Assessment & Plan (1) Acute respiratory failure with hypoxia: (2) COPD with emphysema: (3) Melena: (4) Elevated troponin: (5) Dehydration: Plan Patient is a 59-year-old female with past medical history of rheumatoid arthritis, COPD with emphysema (baseline oxygen requirement of nasal cannula at 3 lpm), interstitial lung disease, hypertension, GERD, VINOD, and anxiety who was admitted due to AHRF. AHRF // PNA // COPD exacerbation (+) SIRS - Elevated procal on admission (~10) and CT suggestive of pneumonia - +SIRS on admission: leukocytosis (likely affected by PO prednisone use prior to admission), and temp < 36 C; ?respiratory source given pneumonia noted on chest CT - Continue Cefepime and Azithromycin (day 3) - Blood cultures negative at 48H - Oxygen supplementation as needed with goal O2 at 88-92% - primary obstacle to discharge is elevated O2 requirement, also concerned about functional status. If insistent on being discharged to home, will need to get O2 requirement under 5L. - IS and FV - Duoneb QID - Continue home inhalers - Repeat AM labs Hyponatremia - Improving ANISH, relative hypotension - Resolved: - Cr was 0.94 on 07/2024; 2.50 on admission - Suspect prerenal etiology secondary to poor PO intake and volume losses - likely cause of hyponatremia as well, ?with some component of SIADH - s/p 2.5L fluid at time of admission - Difficult to determine net fluid balance - impression favors pt being clinically dry, supported by good response to additional fluids yesterday - Continue Midodrine 5mg TID - Target MAP>65 - Recheck AM labs Weakness - Noted in the last 1-2 weeks with associated falls - PT/OT recommend rehab - patient declines, would like discharge to home with - following for dispo planning N/V - Resolved: - N/V + poor PO intake likely explains electrolyte changes on admission - Zofran prn Elevated Troponin - Resolved: - No chest pain or other sxs of ischemia - EKG w/o ischemic changes - Peaked at 625.5 - Suspect related to demand ischemia HTN - Hold home losartan due to relative hypotension CHF - TTE from 07/01/2024 showing EF of 55-60%, normal LV systolic function, moderately dilated RV with mildly decreased systolic function, mildly dilated RA, and elevated RV systolic pressure at 55-60 mmHg - Furosemide held on admission - consider resuming based on serial assessments of volume status and BP - Monitor daily weights and Is/Os Chronic Pain: - Continue Suboxone and Gabapentin, monitor for excess sedation - PRN Modafinil Diet: HH VTE ppx: Heparin FULL CODE Admission and Anticipated Discharge Date Admission Date: September 30, 2024 Supervising Physician Co-Signing Physician Notes I personally examined the patient and verified all langley points of history and exam, discussed case, and agree with decision making with Dr Jackson Sleeping quite soundly. Pulmonary input appreciated. In discussion with nursing she has been fairly sleepy all day. She does get up to go to the bathroom and is reasonably steady on her feet. Vitals noted, in general she is resting appears to be comfortable no distress. HEENT normocephalic atraumatic mucous membranes moist. Breathing unlabored at rest no accessory muscle use. Pulse ox noted. Skin without pallor or icterus. Labs and diagnostics noted. sepsis due to pneumonia (lower lobe infiltrates, WBC/RR as SIRS criteria) POA - showing slow and steady improvement. baseline ~3.5L O2 at home, now down to 6- 8. continue current care. Pulmonary input appreciated. PT/OT eval and treatRehab appears to be a better disposition for her, but should sounds like she prefers to go homewould appreciate PT continuing to work with her while she is in the hospital. Obviously will need to have improvement in the grogginess (appears to be an interplay of her acute illness as well as home medications) and further improvement in her oxygenation (to where she will be safe on her home equipment) to be able to get her home. Should she opt for rehab, I do think this would be a preferred option, but since she has capacity she will be able to make her own decisions in this regard. DVT prophylaxisheparin subcu otherwise as above Subjective Patient evaluated at bedside, more sedated since Suboxone and Gabapentin restart ed. SOB improving - noted to be hypoxic overnight without CPAP, patient asx. Currently on NC 6-8L. Denies current abdominal pain, denies further N/V. Patient expresses desire to be discharged to home with HH, has help from daughter and mother and feels as though she would be able to manage ADLs. Patient on 3L O2 at baseline, up to 5L with activity. Review of Systems Review of Systems: As per HPI Physical Exam Physical Exam: Constitutional: no acute distress HEENT: NCAT, no conjunctival injection CV: extremities well-perfused Resp: Diminished breath sounds bilaterally, no accessory muscle use. +mild expiratory wheezes bilaterally. GI: nondistended MSK: no gross deformities Skin: warm, dry, no rash appreciated Neuro: AOx3, no focal neurologic deficit appreciated Results & Data Results & Data Vital Signs (Past 12 Hours) Vital Signs Temp Pulse Pulse Resp BP Pulse Ox O2 Del Method 10/03/24 02:36 36.6 C 87 16 121/73 94 High Flow Nasal Cannula 10/03/24 00:56 18 92 Nasal Cannula 10/02/24 23:25 36.4 C L 85 16 134/82 92 Nasal Cannula 10/02/24 21:41 93 H 10/02/24 21:00 High Flow Nasal Cannula 10/02/24 19:34 36.3 C L 85 17 126/87 97 Nasal Cannula 10/02/24 19:11 88 18 91 Nasal Cannula O2 Flow Rate 10/03/24 02:36 8 10/03/24 00:56 7 10/02/24 23:25 6 10/02/24 21:41 10/02/24 21:00 8 10/02/24 19:34 6 10/02/24 19:11 8 Resident Activity Tracking Resident Involvement: Resident Care Provided Care Provided: Adult Hospital Medicine
[2024-10-03 07:11] LABS: Albumin Globulin Ratio 1.4 (0.9-2); Albumin Level 3.2 gm/dl (3.4-5.0); Bilirubin,Total 1.3 mg/dl (0.2-1.0); Calcium 8.7 mg/dl (8.6-10.3); Creatinine Clr Calc Pharmacy 59.2 ml/min; Globulin 2.3 gm/dl (2.5-4.0); Potassium 4.5 mmol/L (3.5-5.1); Total Protein 5.5 gm/dl (6.0-8.3)
[2024-10-03 07:17] LABS: Basophils # (auto) 0.04 K/uL (0.00-0.20); Basophils % (auto) 0.2 %; Eosinophils # (auto) 0.11 K/uL (0.00-0.50); Eosinophils % (auto) 0.6 %; Hematocrit (blood only) 40.2 % (37.0-47.0); Hemoglobin 13.6 g/dl (12.0-16.0); Immature Granulocytes # (auto) 0.12 K/uL (0.01-0.20); Immature Granulocytes % (auto) 0.7 %; Lymphocytes # (auto) 1.88 K/uL (1.20-3.40); Lymphocytes % (auto) 10.5 %; Mean Corpuscular Hemoglobin 30.1 pg (25.0-34.0); Mean Corpuscular Hgb Conc 33.8 g/dL (32.0-36.0); Mean Corpuscular Volume 88.9 fL (80.0-100.0); Mean Platelet Volume 9.9 fL (9.4-12.4); Monocytes % (auto) 3.9 %; Neutrophils # (auto) 15.13 K/uL (1.40-6.50); Neutrophils % (auto) 84.1 %; Nucleated RBC # (auto) 0.04 K/uL (0.00-0.12); Nucleated RBC % (auto) 0.2 %; Platelet Count 95 K/uL (130-400); Platelet Estimate Decreased (Normal); RDW Coefficient of Variation 16.3 % (11.5-14.5); RDW Standard Deviation 51.3 fL (36.4-46.3); Red Blood Count 4.52 M/uL (4.20-5.40); White Blood Count 17.98 K/ul (4.8-10.8)
[2024-10-03] MEDS ORDERED: MAGNESIUM OXIDE 400 MG TAB PO SCH (09:00)
[2024-10-03] MEDS: PHYTONADIONE 5 MG TAB PO STA (09:26)
--- NOTE | 2024-10-03 10:14 | Pulmonology Progress Note ---
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 Has a history of rheumatoid arthritis. RECOMMENDATIONS: 1. Hypoxemic respiratory failure - Acute on chronic in the setting of COPD exacerbation and likely underlying pneumonia process. Continue to titrate down supplemental oxygen as tolerated with a goal saturation of 88% or above. 2. Pulmonary hypertension - Prior echocardiogram demonstrated RVSP of 50-60 mmHg. No echocardiogram during this visit, however concerns for elevated pressures given current volume status. Unfortunately, her renal injury makes managing volume status difficult. 3. COPD - As previously noted with significant emphysematous lung changes appreciated. She is not bronchospastic on exam today. Uncertain of the utility of steroids at this juncture. Continue with nebulized budesonide, Perforomist, and as needed DuoNebs. 4. Pneumonia - Certainly difficult to delineate acute infectious process superimposed on chronic interstitial lung disease changes. Given her elevated white count, procalcitonin, and responsiveness to treatment, would continue with antibiotic therapy for now. Complete course of cefepime and azithromycin yesterday. Anticipate 5 days antimicrobial therapy 5. Interstitial lung disease - Is currently managed in the outpatient setting by Dr. Hawkins. She has also met with Juan via telehealth visit. Will defer to them for continued management in the outpatient setting. Thank you for allowing us to participate in the care of this patient. Pulmonary medicine will continue to follow along. Admission and Anticipated Discharge Date Admission Date: September 30, 2024 Subjective Patient seen and examined. EMR reviewed. The patient states that she is improving from a respiratory standpoint. She is able to ambulate back and forth to the restroom. She still has cough but is not producing any phlegm. She denies any fevers chills or night sweats. Her oxygen requirement remains slightly above baseline. She is tolerating a diet. Review of Systems 2 Review of Systems: All systems reviewed & are unremarkable except as noted in Subjective Physical Exam 2 Constitutional: WD/WN, vitals as above Neck: trachea midline, no thyromegaly Respiratory: no labored breathing, no cough and not tachypneic A uscultation: + crackles and + bronchovesicular breath sounds Cardiovascular: RRR, no murmur, no edema Gastrointestinal (Abdomen): normal bowel sounds, soft, nontender, no hepatosplenomegaly Musculoskeletal: Extremities: extremities normal to inspection Skin: no rashes, warm and dry Neurologic: Nonfocal exam Lymphatic: no cervical lymphadenopathy Results & Data Results & Data Vital Signs (Past 12 Hours) Vital Signs Temp Pulse Pulse Resp BP Pulse Ox O2 Del Method 10/03/24 08:10 83 10/03/24 07:27 96 H 18 90 Nasal Cannula 10/03/24 07:16 36.8 C 96 H 24 161/89 H 90 Nasal Cannula 10/03/24 02:36 36.6 C 87 16 121/73 94 High Flow Nasal Cannula 10/03/24 00:56 18 92 Nasal Cannula 10/02/24 23:25 36.4 C L 85 16 134/82 92 Nasal Cannula O2 Flow Rate 10/03/24 08:10 10/03/24 07:27 6 10/03/24 07:16 8 10/03/24 02:36 8 10/03/24 00:56 7 10/02/24 23:25 6 Laboratory Results 10/03/24 06:06 10/03/24 06:06 Diagnostic Findings No new imaging PG Care Time/CCT Total # of Minutes Spent Total Time Spent with Patient: Total time spent is greater than 50% in coordination of care (as documented) at patient's floor/unit and/or counseling patient: Coding Level of Care Code 16332 SUB INP/OBS CARE 2/35MIN Diagnoses Acute on chronic respiratory failure with hypoxemia J96.21 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
[2024-10-03] MEDS: CEFEPIME 2000MG 2,000 MG/20 ML SYR IV SCH (11:46)
--- NOTE | 2024-10-03 17:46 | Billing Data ---
Date of Service October 03, 2024 Coding Level of Care Code 77005 SUB INP/OBS CARE
[2024-10-04 07:18] LABS: Hematocrit (blood only) 40.7 % (37.0-47.0); Hemoglobin 13.5 g/dl (12.0-16.0); Mean Corpuscular Hemoglobin 30.3 pg (25.0-34.0); Mean Corpuscular Hgb Conc 33.2 g/dL (32.0-36.0); Mean Corpuscular Volume 91.3 fL (80.0-100.0); Nucleated RBC # (auto) 0.03 K/uL (0.00-0.12); Nucleated RBC % (auto) 0.2 %; Platelet Count 96 K/uL (130-400); RDW Coefficient of Variation 16.7 % (11.5-14.5); RDW Standard Deviation 53.9 fL (36.4-46.3); Red Blood Count 4.46 M/uL (4.20-5.40); White Blood Count 17.04 K/ul (4.8-10.8)
--- NOTE | 2024-10-04 07:36 | Hospitalist Progress Note ---
Date of Service October 04, 2024 Assessment & Plan (1) Acute respiratory failure with hypoxia: (2) COPD with emphysema: (3) Melena: (4) Elevated troponin: (5) Dehydration: Plan Patient is a 59-year-old female with past medical history of rheumatoid arthritis, COPD with emphysema (baseline oxygen requirement of nasal cannula at 3 lpm), interstitial lung disease, hypertension, GERD, VINOD, and anxiety who was admitted due to AHRF. AHRF // PNA // COPD exacerbation (+) SIRS - Elevated procal on admission (~10) and CT suggestive of pneumonia - +SIRS on admission: leukocytosis (likely affected by PO prednisone use prior to admission), and temp < 36 C; ?respiratory source given pneumonia noted on chest CT - Continue Cefepime and Azithromycin (day 4) - Blood cultures negative at 48H - Oxygen supplementation as needed with goal SpO2 at 88-92% - primary obstacle to discharge remains elevated O2 requirement, also concerned about functional status. Continue PT/OT while hospitalized. - Persistent leukocytosis (WBC~17) and stagnated O2 requirement (6-8L) - Consider trial of short course moderate dose systemic steroids - difficult to say if this will help significantly but with few significant risks with brief course, potential benefit outweighs risks. - IS and FV - Duoneb QID - Continue home inhalers - Repeat AM labs Hyponatremia - Improving ANISH, relative hypotension - Resolved: - Cr was 0.94 on 07/2024; 2.50 on admission - Suspect prerenal etiology secondary to poor PO intake and volume losses - likely cause of hyponatremia as well - s/p 2.5L fluid at time of admission - Sodium essentially normalized - ANISH resolved - Continue Midodrine 5mg TID - Target MAP>65 - Recheck AM labs Weakness - Noted in the last 1-2 weeks with associated falls - PT/OT recommend rehab - patient declines, would like discharge to home with - following for dispo planning N/V - Resolved: - N/V + poor PO intake likely explains electrolyte changes on admission - Zofran prn Elevated Troponin - Resolved: - No chest pain or other sxs of ischemia - EKG w/o ischemic changes - Peaked at 625.5 - Suspect related to demand ischemia HTN - Hold home losartan due to relative hypotension CHF - TTE from 07/01/2024 showing EF of 55-60%, normal LV systolic function, moderately dilated RV with mildly decreased systolic function, mildly dilated RA, and elevated RV systolic pressure at 55-60 mmHg - Furosemide held on admission - consider resuming based on serial assessments of volume status and BP - Monitor daily weights and Is/Os Chronic Pain: - Continue Suboxone and Gabapentin, monitor for excess sedation - PRN Modafinil Diet: HH VTE ppx: Heparin FULL CODE Admission and Anticipated Discharge Date Admission Date: September 30, 2024 Supervising Physician Co-Signing Physician Notes I personally examined the patient and verified all langley points of history and exam, discussed case, and agree with decision making with Dr Jackson breathing slowly feeling better. feels like she's able to get around reasonably well. nursing confirms she is just close contact but doesn't need true assistance. home O2 goes to 5L. Vitals noted, in general she is resting appears to be comfortable no distress. HEENT normocephalic atraumatic mucous membranes moist. Breathing unlabored at rest no accessory muscle use. Pulse ox noted. Skin without pallor or icterus. Labs and diagnostics noted. sepsis due to pneumonia (lower lobe infiltrates, WBC/RR as SIRS criteria) POA - showing slow and steady improvement. baseline ~3.5L O2 at home, now down to 6-8 but staying in that range. continue current care. Pulmonary input appreciated. PT/OT eval and treatRehab appears to be a better disposition for her, but should sounds like she prefers to go homewould appreciate PT continuing to work with her while she is in the hospital. Obviously will need to have improvement in the grogginess (appears to be an interplay of her acute illness as well as home medications) and further improvement in her oxygenation (to where she will be safe on her home equipment) to be able to get her home. we talked about her current situation and how she would be reasonable for home as far as ambulation, she is not yet safe for home as far as oxygenation - and that this may take a while. because of this, it would be reasonable to consider rehab for more PT while she improves. she would like to see if she makes any significant progress as today passes into tomorrow - and if not will consider rehab. DVT prophylaxisheparin subcu otherwise as above Subjective Patient evaluated at bedside, denies shortness of breath, overall thinks she is slowly improving. O2 requirement overnight 7-8L. Patient notes bilateral posterior rib pain L>R, attributes this to coughing. Denies recurrence of abdominal pain, N/V/D. Denies fevers, chills. Continues to express goal is to discharge to home rather than rehab. Review of Systems Review of Systems: As per HPI Physical Exam Physical Exam: Constitutional: no acute distress HEENT: NCAT, no conjunctival injection CV: extremities well-perfused Resp: Diminished breath sounds bilaterally, no accessory muscle use. +mild expiratory wheezes bilaterally. GI: nondistended MSK: no gross deformities Skin: warm, dry, no rash appreciated Neuro: AOx3, no focal neurologic deficit appreciated Results & Data Results & Data Vital Signs (Past 12 Hours) Vital Signs Temp Pulse Pulse Resp BP Pulse Ox O2 Del Method 10/04/24 07:21 102 H 20 91 Nasal Cannula 10/04/24 02:32 36.5 C 100 H 18 132/79 95 Nasal Cannula 10/03/24 22:58 36.5 C 94 H 18 140/77 93 Nasal Cannula 10/03/24 22:00 93 H 10/03/24 20:44 100 H 17 92 Nasal Cannula 10/03/24 20:30 Nasal Cannula O2 Flow Rate 10/04/24 07:21 7 10/04/24 02:32 10/03/24 22:58 10/03/24 22:00 10/03/24 20:44 8 10/03/24 20:30 7 Resident Activity Tracking Resident Involvement: Resident Care Provided Care Provided: Adult Hospital Medicine
[2024-10-04 07:54] LABS: INR 1.1 (0.9-1.1); Prothrombin Time 11.9 Seconds (9.0-12.0)
[2024-10-04 08:04] LABS: BUN Creatinine Ratio 31.7 (10-20); Creatinine Clr Calc Pharmacy 72.1 ml/min; Magnesium 1.6 mg/dl (1.7-2.4); Potassium 4.3 mmol/L (3.5-5.1)
[2024-10-04] MEDS: MAGNESIUM SULFATE / D5W 1 GM/100 ML BAG IV SCH (10:13)
--- NOTE | 2024-10-04 13:21 | Billing Data ---
Date of Service October 04, 2024 Coding Level of Care Code 31736 SUB INP/OBS CARE MIN
--- NOTE | 2024-10-04 16:39 | Pulmonology Progress Note ---
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 Hawkins, admitted with exacerbation and found to have pulmonary hypertension. Has a history of rheumatoid arthritis. RECOMMENDATIONS: 1. Hypoxemic respiratory failure - Acute on chronic in the setting of COPD exacerbation and likely underlying pneumonia process. Continue to titrate down supplemental oxygen as tolerated with a goal saturation of 88% or above. The patient may need to see whether or not she can get a higher capacity concentrator at home. 2. Pulmonary hypertension - Prior echocardiogram demonstrated RVSP of 50-60 mmHg. No echocardiogram during this visit, however concerns for elevated pressures given current volume status. Will start diuretics now that her kidney function is back to normal. 3. COPD - As previously noted with significant emphysematous lung changes appreciated. She is not bronchospastic on exam today. Uncertain of the utility of steroids at this juncture. Continue with nebulized budesonide, Perforomist, and as needed DuoNebs. 4. Pneumonia - Certainly difficult to delineate acute infectious process superimposed on chronic interstitial lung disease changes. Given her elevated white count, procalcitonin, and responsiveness to treatment, would continue with antibiotic therapy for now. Complete course of cefepime and azithromycin yesterday. Anticipate 5 days antimicrobial therapy. 5. Interstitial lung disease - Is currently managed in the outpatient setting by Dr. Hawkins. She has also met with Juan via telehealth visit. Will defer to them for continued management in the outpatient setting. Thank you for allowing us to participate in the care of this patient. Pulmonary medicine will continue to follow along. Disposition per primary service Admission and Anticipated Discharge Date Admission Date: September 30, 2024 Subjective Patient seen and examined. EMR reviewed. Patient reports that she is doing okay from a respiratory standpoint. She would like to consider going home within the next 24 to 48 hours. She is ambulating. She still has a higher oxygen requirement than her baseline 3 L/min. She states her oxygen concentrator at home will go up to 5 L/min. Review of Systems 2 Review of Systems: All systems reviewed & are unremarkable except as noted in Subjective Physical Exam 2 Constitutional: WD/WN, vitals as above Neck: trachea midline, no thyromegaly Respiratory: no labored breathing, no cough and not tachypneic A uscultation: + crackles and + bronchovesicular breath sounds Cardiovascular: RRR, no murmur, no edema Gastrointestinal (Abdomen): normal bowel sounds, soft, nontender, no hepatosplenomegaly Musculoskeletal: Extremities: extremities normal to inspection Skin: no rashes, warm and dry Lymphatic: no cervical lymphadenopathy Results & Data Results & Data Vital Signs (Past 12 Hours) Vital Signs Temp Pulse Pulse Resp BP Pulse Ox O2 Del Method 10/04/24 16:00 36.8 C 101 H 18 121/63 97 Nasal Cannula 10/04/24 15:02 114 H 10/04/24 08:00 88 10/04/24 08:00 36.8 C 98 H 20 128/85 96 Nasal Cannula 10/04/24 07:45 Nasal Cannula 10/04/24 07:21 102 H 20 91 Nasal Cannula O2 Flow Rate 10/04/24 16:00 10/04/24 15:02 10/04/24 08:00 10/04/24 08:00 10/04/24 07:45 8 10/04/24 07:21 7 Laboratory Results 10/04/24 06:52 10/04/24 06:52 Diagnostic Findings No new imaging PG Care Time/CCT Total # of Minutes Spent Total Time Spent with Patient: Total time spent is greater than 50% in coordination of care (as documented) at patient's floor/unit and/or counseling patient: Coding Level of Care Code 66346 SUB INP/OBS CARE 2/35MIN Diagnoses Acute on chronic respiratory failure with hypoxemia J96.21 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
[2024-10-04] MEDS: FUROSEMIDE 20 MG TAB PO SCH (17:52)
--- NOTE | 2024-10-05 07:24 | Hospitalist Progress Note ---
Date of Service October 05, 2024 Assessment & Plan (1) Acute respiratory failure with hypoxia: (2) COPD with emphysema: (3) Melena: (4) Elevated troponin: (5) Dehydration: Plan Pt is a 59 yo female with PMH of rheumatoid arthritis, COPD with emphysema (baseline oxygen requirement of nasal cannula at 3L), interstitial lung disease, hypertension, GERD, VINOD, and anxiety who was admitted due to acute hypoxic respiratory failure. Acute hypoxic respiratory failure secondary to PNA/COPD exacerbation - leukocytosis and elevated procal on admission (~10) with CT suggestive of pneumonia - blood cx negative - will complete 5 day course of cefepime and azithromycin (end today) - may consider trial of short course moderate dose systemic steroids - difficult to say if this will help significantly as pt not wheezing on exam; continue inhaled steroid - continue IS and FV, Duoneb QID PRN, and home inhalers - continue oxygen supplementation as needed with goal SpO2 at 88-92%: primary obstacle to discharge remains elevated O2 requirement- can consider options for higher home oxygen concentrators for home; however, concern still remains that even if available, pt's oxygen requirement is still too high and her functional status too debilitated to be discharged home safely. Discussed rehab with pt at which point she is opting to go home on discharge. Continue PT/OT while hospitalized. Acute hypotension/chronic HTN - pt on midodrine 5mg TID d/t hypotension; will hold today and monitor pt's BP at she has consistently been MAP > 65 - hold home losartan HFpEF/pulmonary HTN - TTE from 07/01/2024 showing EF of 55-60%, normal LV systolic function, moderately dilated RV with mildly decreased systolic function, mildly dilated RA, and elevated RV systolic pressure at 55-60 mmHg - furosemide held on admission d/t hypotension- resumed at 20mg daily Hyponatremia- improved ANISH- resolved - Cr was 0.94 on 07/2024; 2.50 on admission - suspect prerenal etiology secondary to poor PO intake and volume losses - likely cause of hyponatremia as well - s/p 2.5L fluid at time of admission Weakness - noted in the last 1-2 weeks with associated falls - PT/OT recommend rehab - patient declines, would like discharge to home with - CM following for dispo planning Elevated troponin - resolved - No chest pain or other sxs of ischemia - EKG w/o ischemic changes - peaked at 625.5 - suspect related to demand ischemia Chronic pain - Continue Suboxone and Gabapentin, monitor for excess sedation - PRN Modafinil Diet: heart healthy VTE ppx: Heparin Code: full Dispo: PT recommending rehab but pt hesitant; pt unable to return home with current oxygen requirement- continue inpatient stay until oxygen requirement decreases or pt opts for rehab Admission and Anticipated Discharge Date Admission Date: September 30, 2024 Supervising Physician Co-Signing Physician Notes I personally examined the patient and verified all langley points of history and exam, discussed case, and agree with decision making with Dr Posada feels better but still needing O2 at much higher levels than home - nursing tried to wean but pt desaturated rather noticeably. Vitals noted, in general she is resting appears to be comfortable no distress. HEENT normocephalic atraumatic mucous membranes moist. Breathing unlabored at rest no accessory muscle use. Pulse ox noted. Skin without pallor or icterus. Labs and diagnostics noted. sepsis due to pneumonia (lower lobe infiltrates, WBC/RR as SIRS criteria) POA - showing slow and steady improvement. baseline ~3.5L O2 at home, now down to 6-8 but staying in that range. continue current care. Pulmonary input appreciated. PT/OT eval and treatRehab appears to be a better disposition for her, and given that her increased oxygen needs appear to be extremely slow in improvement, I have been discussing with the patient more that she is not likely to be safe to go home for a while given that she still needing more oxygen than can usually be set up at home and certainly more than her home equipment goes toand since she would need to be in a facility anyway, it would make a lot more sense for her to go to a facility where she can also get a lot of therapy. She is thinking about it more, but more importantly, her daughter was on the phone whenever we were talking and her daughter very much feels that rehab would be in the patient's best interest as well. With this, the patient was at least willing to talk to case management. DVT prophylaxisheparin subcu otherwise as above Subjective Pt states she is feeling well this morning. She feels her breathing is better than the day prior. Review of Systems Review of Systems: As per HPI Physical Exam Physical Exam: Constitutional: well appearing, no acute distress HEENT: normocephalic, no conjunctival injection CV: regular rhythm, tachycardia, clinically well perfused Respiratory: Diminished breath sounds throughout. Minimal rhonchi noted in bilateral lung bases. No increased work of breathing MSK: no gross deformities noted Skin: warm, dry, no rashes Neuro: alert, oriented, no FND noted Psych: mood and affect congruent Results & Data Results & Data Vital Signs (Past 12 Hours) Vital Signs Temp Pulse Pulse Resp BP Pulse Ox O2 Del Method 10/05/24 07:20 112 H 18 95 Nasal Cannula 10/05/24 07:17 High Flow Nasal Cannula 10/05/24 03:16 37.2 C 112 H 18 109/64 96 Nasal Cannula 10/05/24 00:00 110 H 10/04/24 22:58 36.3 C L 121 H 18 145/88 H 90 Nasal Cannula 10/04/24 20:00 High Flow Nasal Cannula 10/04/24 19:52 101 H 91 Nasal Cannula 10/04/24 19:25 36.9 C 112 H 18 117/67 90 Nasal Cannula O2 Flow Rate 10/05/24 07:20 8 10/05/24 07:17 8 10/05/24 03:16 8 10/05/24 00:00 10/04/24 22:58 8 10/04/24 20:00 8 10/04/24 19:52 8 10/04/24 19:25 8 Resident Activity Tracking Resident Involvement: Resident Care Provided Care Provided: Adult Hospital Medicine
[2024-10-05 07:49] LABS: Hematocrit (blood only) 39.9 % (37.0-47.0); Hemoglobin 13.3 g/dl (12.0-16.0); Mean Corpuscular Hemoglobin 30.2 pg (25.0-34.0); Mean Corpuscular Hgb Conc 33.3 g/dL (32.0-36.0); Mean Corpuscular Volume 90.5 fL (80.0-100.0); Mean Platelet Volume 11.3 fL (9.4-12.4); Platelet Count 86 K/uL (130-400); RDW Coefficient of Variation 16.9 % (11.5-14.5); RDW Standard Deviation 53.1 fL (36.4-46.3); Red Blood Count 4.41 M/uL (4.20-5.40); White Blood Count 15.81 K/ul (4.8-10.8)
[2024-10-05 08:10] LABS: BUN Creatinine Ratio 22.4 (10-20); Creatinine Clr Calc Pharmacy 77.8 ml/min; Potassium 4.5 mmol/L (3.5-5.1)
--- NOTE | 2024-10-05 08:59 | Pulmonology Progress Note ---
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 Hawkins, admitted with exacerbation. Has a history of rheumatoid arthritis. Echo shows pulmonary hypertension. RECOMMENDATIONS: 1. Hypoxemic respiratory failure - Acute on chronic in the setting of COPD exacerbation and likely underlying pneumonia process. Continue to titrate down supplemental oxygen as tolerated with a goal saturation of 88% or above. The patient may need to see whether or not she can get a higher capacity concentrator at home. Continue I-S and flutter valve. 2. Pulmonary hypertension - Prior echocardiogram demonstrated RVSP of 50-60 mmHg. No echocardiogram during this visit, however concerns for elevated pressures given current volume status. Continue diuretics as tolerated 3. COPD - As previously noted with significant emphysematous lung changes appreciated. She is not bronchospastic on exam today. Uncertain of the utility of steroids at this juncture. Continue with nebulized budesonide, Perforomist, and as needed DuoNebs. 4. Pneumonia - Certainly difficult to delineate acute infectious process superimposed on chronic interstitial lung disease changes. Given her elevated white count, procalcitonin, and responsiveness to treatment, would continue with antibiotic therapy for now. Complete course of cefepime and azithromycin. Anticipate 5 days antimicrobial therapy. Antibiotics can be discontinued after today's dose 5. Interstitial lung disease - Is currently managed in the outpatient setting by Dr. Hawkins. She has also met with Juan via telehealth visit. Will defer to them for continued management in the outpatient setting. Patient appears to be approaching her baseline. Her acute issues appear to have resolved and she has benefited from inpatient evaluation. Can likely transition to home with outpatient pulmonary follow-up to [facility] once her oxygen need can be safely met at home. Pulmonary will follow peripherally Admission and Anticipated Discharge Date Admission Date: September 30, 2024 Subjective Patient seen and examined. EMR reviewed. The patient reports that she is feeling back to her pulmonary baseline. Her oxygen requirement remains elevated above her baseline. She is not coughing. She appears comfortable. Review of Systems 2 Review of Systems: All systems reviewed & are unremarkable except as noted in Subjective Physical Exam 2 Constitutional: WD/WN, vitals as above Neck: trachea midline, no thyromegaly Respiratory: no labored breathing, no cough and not tachypneic A uscultation: + crackles and + bronchovesicular breath sounds Cardiovascular: RRR, no murmur, no edema Gastrointestinal (Abdomen): normal bowel sounds, soft, nontender, no hepatosplenomegaly Musculoskeletal: Extremities: extremities normal to inspection Skin: no rashes, warm and dry Lymphatic: no cervical lymphadenopathy Results & Data Results & Data Vital Signs (Past 12 Hours) Vital Signs Temp Pulse Pulse Resp BP Pulse Ox O2 Del Method 10/05/24 08:00 100 H 10/05/24 07:48 37.0 C 114 H 20 122/58 L 98 Nasal Cannula 10/05/24 07:20 112 H 18 95 Nasal Cannula 10/05/24 07:17 High Flow Nasal Cannula 10/05/24 03:16 37.2 C 112 H 18 109/64 96 Nasal Cannula 10/05/24 00:00 110 H 10/04/24 22:58 36.3 C L 121 H 18 145/88 H 90 Nasal Cannula O2 Flow Rate 10/05/24 08:00 10/05/24 07:48 8 10/05/24 07:20 8 10/05/24 07:17 8 10/05/24 03:16 8 10/05/24 00:00 10/04/24 22:58 8 Laboratory Results 10/05/24 07:26 10/05/24 07:26 Diagnostic Findings No new imaging PG Care Time/CCT Total # of Minutes Spent Total Time Spent with Patient: Total time spent is greater than 50% in coordination of care (as documented) at patient's floor/unit and/or counseling patient: Coding Level of Care Code 01121 SUB INP/OBS CARE 2/35MIN Diagnoses Acute on chronic respiratory failure with hypoxemia J96.21 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
[2024-10-05] MEDS: CEFEPIME 2000MG 2,000 MG/20 ML SYR IV SCH (12:44)
--- NOTE | 2024-10-05 17:46 | Billing Data ---
Date of Service October 05, 2024 Coding Level of Care Code 86999 SUB INP/OBS CARE MIN
--- NOTE | 2024-10-05 17:47 | Billing Data ---
Date of Service October 05, 2024 Coding Level of Care Code 52941 SUB INP/OBS CARE MIN
--- NOTE | 2024-10-06 07:05 | Hospitalist Progress Note ---
Date of Service October 06, 2024 Assessment & Plan (1) Acute respiratory failure with hypoxia: (2) COPD with emphysema: (3) Melena: (4) Elevated troponin: (5) Dehydration: Plan Pt is a 59 yo female with PMH of rheumatoid arthritis, COPD with emphysema (baseline oxygen requirement of nasal cannula at 3L), interstitial lung disease, hypertension, GERD, VINOD, and anxiety who was admitted due to acute hypoxic respiratory failure. Acute hypoxic respiratory failure secondary to PNA/COPD exacerbation - leukocytosis and elevated procal on admission (~10) with CT suggestive of pneumonia - blood cx negative - will complete 5 day course of cefepime and azithromycin (end 10/05) - continue IS and FV, Duoneb QID PRN, and home inhalers - continue oxygen supplementation as needed with goal SpO2 at 88-92%:Able to wean to 4L -4.5L at rest, still requiring higher with activity. Given deconditioning, still feel rehab would be best d/c plan. Pt is considering. Will need 2 step prior to d/c Continue PT/OT while hospitalized. Acute hypotension/chronic HTN - pt on midodrine 5mg TID d/t hypotension-> able and blood pressures have been acceptable - hold home losartan HFpEF/pulmonary HTN - TTE from 07/01/2024 showing EF of 55-60%, normal LV systolic function, moderately dilated RV with mildly decreased systolic function, mildly dilated RA, and elevated RV systolic pressure at 55-60 mmHg - furosemide held on admission d/t hypotension- resumed at 20mg daily Hyponatremia- improved ANISH- resolved - Cr was 0.94 on 07/2024; 2.50 on admission - suspect prerenal etiology secondary to poor PO intake and volume losses - likely cause of hyponatremia as well - s/p 2.5L fluid at time of admission Weakness - noted in the last 1-2 weeks with associated falls - PT/OT recommend rehab - patient considering - CM following for dispo planning Elevated troponin - resolved - No chest pain or other sxs of ischemia - EKG w/o ischemic changes - peaked at 625.5 - suspect related to demand ischemia Chronic pain - Continue Suboxone and Gabapentin, monitor for excess sedation - PRN Modafinil Diet: heart healthy VTE ppx: Heparin Code: full Dispo: PT recommending rehab but pt hesitant, will see oxygen requirements throughout the day today Admission and Anticipated Discharge Date Admission Date: September 30, 2024 Supervising Physician Co-Signing Physician Notes I personally examined the patient and verified all langley points of history and exam, discussed case, and agree with decision making with Dr Posada feels better but still needing O2 at much higher levels than home - nursing tried to wean but pt desaturated rather noticeably. Vitals noted, in general she is resting appears to be comfortable no distress. HEENT normocephalic atraumatic mucous membranes moist. Breathing unlabored at rest no accessory muscle use. Pulse ox noted. Skin without pallor or icterus. Labs and diagnostics noted. sepsis due to pneumonia (lower lobe infiltrates, WBC/RR as SIRS criteria) POA - showing slow and steady improvement. Now down to about 4-1/2 L. Uncertain what she is at with exertion though. Starting to ask about going home again. I discussed that if she is able to maintain adequate oxygenation at levels that her home equipment can meet, going home is not out of the question, but also discussed that she still seems like she would do better in the long-term with rehab. Asked her to discuss further with her daughters. Discussed right now there is no need to change her mind about the rehab decision given that the referral is underway, I do feel like she would be better if she went from the hospital to rehab before going home, but since she has capacity ultimately I will be her choice. DVT prophylaxisheparin subcu otherwise as above Subjective Overall some improvement in dyspnea this morning. Still notes dyspnea with exertion. Denies chest/pleuritic pain. Considering rehab if necessary. Review of Systems Review of Systems: As per above Physical Exam Physical Exam: Constitutional: well appearing, no acute distress HEENT: normocephalic, no conjunctival injection CV: regular rhythm, tachycardia, clinically well perfused Respiratory: Diminished breath sounds throughout. No increased work of breathing MSK: no gross deformities noted Skin: warm, dry, no rashes Neuro: alert, oriented, no FND noted Psych: mood and affect congruent Results & Data Results & Data Vital Signs (Past 12 Hours) Vital Signs Temp Pulse Pulse Resp BP Pulse Ox O2 Del Method 10/06/24 05:14 96 Nasal Cannula 10/06/24 02:57 36.4 C L 97 H 18 115/74 96 Nasal Cannula 10/05/24 22:59 36.3 C L 115 H 18 125/83 92 Nasal Cannula 10/05/24 21:59 113 H 10/05/24 20:00 High Flow Nasal Cannula 10/05/24 19:06 36.7 C 111 H 18 130/83 92 Nasal Cannula O2 Flow Rate 10/06/24 05:14 3 10/06/24 02:57 8 10/05/24 22:59 8 10/05/24 21:59 10/05/24 20:00 8 10/05/24 19:06 8 Resident Activity Tracking Resident Involvement: Resident Care Provided Care Provided: Adult Hospital Medicine
[2024-10-06 07:41] LABS: Hematocrit (blood only) 40.7 % (37.0-47.0); Hemoglobin 13.1 g/dl (12.0-16.0); Mean Corpuscular Hemoglobin 29.4 pg (25.0-34.0); Mean Corpuscular Hgb Conc 32.2 g/dL (32.0-36.0); Mean Corpuscular Volume 91.3 fL (80.0-100.0); Mean Platelet Volume 11.8 fL (9.4-12.4); Platelet Count 98 K/uL (130-400); RDW Coefficient of Variation 16.7 % (11.5-14.5); RDW Standard Deviation 52.9 fL (36.4-46.3); Red Blood Count 4.46 M/uL (4.20-5.40)
[2024-10-06 07:58] LABS: BUN Creatinine Ratio 28.8 (10-20); Calcium 9.1 mg/dl (8.6-10.3); Creatinine Clr Calc Pharmacy 100.2 ml/min; Potassium 3.9 mmol/L (3.5-5.1)
[2024-10-06] MEDS: PANTOprazole 40 MG TAB PO SCH (08:03)
--- NOTE | 2024-10-06 08:35 | Pulmonology Progress Note ---
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 Hawkins, admitted with exacerbation. Has a history of rheumatoid arthritis. Echo shows pulmonary hypertension. RECOMMENDATIONS: 1. Hypoxemic respiratory failure - Acute on chronic in the setting of COPD exacerbation and likely underlying pneumonia process. Appears to be approaching her baseline oxygen requirement. Continue I-S and flutter valve. 2. Pulmonary hypertension - Prior echocardiogram demonstrated RVSP of 50-60 mmHg. No echocardiogram during this visit, however concerns for elevated pressures given current volume status. Continue diuretics as tolerated 3. COPD - As previously noted with significant emphysematous lung changes appreciated. She is not bronchospastic on exam today. Uncertain of the utility of steroids at this juncture. Continue with nebulized budesonide, Perforomist, and as needed DuoNebs. 4. Pneumonia -completed course of broad-spectrum antibiotics. Azithromycin can likely be discontinued as well 5. Interstitial lung disease - Is currently managed in the outpatient setting by Dr. Hawkins. She has also met with Juan via telehealth visit. Will defer to them for continued management in the outpatient setting. Patient appears to be approaching her baseline. Her acute issues appear to have resolved and she has benefited from inpatient evaluation. Pulmonary will sign off. Feel free to contact us with questions or concerns Admission and Anticipated Discharge Date Admission Date: September 30, 2024 Subjective Patient seen and examined. EMR reviewed. Patient reports that she is feeling better and actually feels back to close to her baseline status. Her oxygen requirement has decreased significantly. She is not coughing or expectorating phlegm. She has no new respiratory complaints this morning Review of Systems 2 Review of Systems: All systems reviewed & are unremarkable except as noted in Subjective Physical Exam 2 Constitutional: WD/WN, vitals as above Neck: trachea midline, no thyromegaly Respiratory: no labored breathing, no cough and not tachypneic A uscultation: + crackles and + bronchovesicular breath sounds Cardiovascular: RRR, no murmur, no edema Gastrointestinal (Abdomen): normal bowel sounds, soft, nontender, no hepatosplenomegaly Musculoskeletal: Extremities: extremities normal to inspection Skin: no rashes, warm and dry Lymphatic: no cervical lymphadenopathy Results & Data Results & Data Vital Signs (Past 12 Hours) Vital Signs Temp Pulse Pulse Resp BP Pulse Ox O2 Del Method 10/06/24 07:46 36.5 C 122 H 20 121/78 93 Nasal Cannula 10/06/24 07:18 108 H 18 88 L Nasal Cannula 10/06/24 05:14 96 Nasal Cannula 10/06/24 02:57 36.4 C L 97 H 18 115/74 96 Nasal Cannula 10/05/24 22:59 36.3 C L 115 H 18 125/83 92 Nasal Cannula 10/05/24 21:59 113 H O2 Flow Rate 10/06/24 07:46 3 10/06/24 07:18 3 10/06/24 05:14 3 10/06/24 02:57 8 10/05/24 22:59 8 10/05/24 21:59 Laboratory Results 10/06/24 07:06 10/06/24 07:06 Diagnostic Findings No new imaging PG Care Time/CCT Total # of Minutes Spent Total Time Spent with Patient: Total time spent is greater than 50% in coordination of care (as documented) at patient's floor/unit and/or counseling patient: Coding Level of Care Code 25432 SUB INP/OBS CARE 2/35MIN Diagnoses Acute on chronic respiratory failure with hypoxemia J96.21 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
--- NOTE | 2024-10-06 16:53 | Billing Data ---
Date of Service October 06, 2024 Coding Level of Care Code 98224 SUB INP/OBS CARE MIN
[2024-10-06] MEDS: NYSTATIN 500,000 UNIT TAB PO SCH (17:48)
[2024-10-06] MEDS: FLUCONAZOLE 50 MG TAB PO ONE (17:48)
[2024-10-07 06:49] LABS: Basophils # (auto) 0.03 K/uL (0.00-0.20); Basophils % (auto) 0.3 %; Eosinophils % (auto) 2.1 %; Hematocrit (blood only) 36.6 % (37.0-47.0); Hemoglobin 12.1 g/dl (12.0-16.0); Immature Granulocytes # (auto) 0.21 K/uL (0.01-0.20); Immature Granulocytes % (auto) 2.2 %; Lymphocytes # (auto) 1.62 K/uL (1.20-3.40); Lymphocytes % (auto) 17.3 %; Mean Corpuscular Hemoglobin 29.7 pg (25.0-34.0); Mean Corpuscular Hgb Conc 33.1 g/dL (32.0-36.0); Mean Corpuscular Volume 89.9 fL (80.0-100.0); Mean Platelet Volume 12.9 fL (9.4-12.4); Monocytes % (auto) 7.5 %; Neutrophils # (auto) 6.62 K/uL (1.40-6.50); Neutrophils % (auto) 70.6 %; Platelet Count 92 K/uL (130-400); RDW Coefficient of Variation 16.2 % (11.5-14.5); RDW Standard Deviation 50.9 fL (36.4-46.3); Red Blood Count 4.07 M/uL (4.20-5.40); White Blood Count 9.38 K/ul (4.8-10.8)
[2024-10-07 07:01] LABS: BUN Creatinine Ratio 29.3 (10-20); Calcium 8.7 mg/dl (8.6-10.3); Creatinine Clr Calc Pharmacy 102.3 ml/min; Potassium 3.9 mmol/L (3.5-5.1)
--- NOTE | 2024-10-07 08:12 | Hospitalist Progress Note ---
Date of Service October 07, 2024 Assessment & Plan (1) Acute respiratory failure with hypoxia: (2) COPD with emphysema: (3) Melena: (4) Elevated troponin: (5) Dehydration: Plan Pt is a 59 yo female with PMH of rheumatoid arthritis, COPD with emphysema (baseline oxygen requirement of nasal cannula at 3L), interstitial lung disease, hypertension, GERD, VINOD, and anxiety who was admitted due to acute hypoxic respiratory failure. Acute hypoxic respiratory failure secondary to PNA/COPD exacerbation - leukocytosis and elevated procal on admission (~10) with CT suggestive of pneumonia - blood cx negative - will complete 5 day course of cefepime and azithromycin (end 10/05) - continue IS and FV, Duoneb QID PRN, and home inhalers - continue oxygen supplementation as needed with goal SpO2 at 88-92%:Able to wean to 4L -4.5L at rest, still requiring higher with activity. Given decon ditioning, still feel rehab would be best d/c plan. Pt is considering. Will need 2 step prior to d/c Continue PT/OT while hospitalized. Acute hypotension (resolved)/chronic HTN - pt on midodrine 5mg TID (cont at this time) d/t hypotension-> able and blood pressures have been acceptable - hold home losartan HFpEF/pulmonary HTN - TTE from 07/01/2024 showing EF of 55-60%, normal LV systolic function, moderately dilated RV with mildly decreased systolic function, mildly dilated RA, and elevated RV systolic pressure at 55-60 mmHg - furosemide 20mg PO initially held on admission due to hypotension, was resumed on PO furosemide - will change it to furosemide 40mg IV daily x5 days (monitor BP and renal function closely) Hyponatremia- improved ANISH- resolved - Cr was 0.94 on 07/2024; 2.50 on admission - suspect prerenal etiology secondary to poor PO intake and volume losses - likely cause of hyponatremia as well - s/p 2.5L fluid at time of admission Weakness - noted in the last 1-2 weeks with associated falls - PT/OT recommend rehab - patient considering - CM following for dispo planning Elevated troponin - resolved - No chest pain or other sxs of ischemia - EKG w/o ischemic changes - peaked at 625.5 - suspect related to demand ischemia Chronic pain - Continue Suboxone and Gabapentin, monitor for excess sedation - PRN Modafinil Diet: heart healthy VTE ppx: Heparin Code: full Dispo: PT recommending rehab but pt hesitant Admission and Anticipated Discharge Date Admission Date: September 30, 2024 Subjective No acute events overnight Currently stating she is fatigued She has b/l LE edema that she states has been going on since she got sick per bedside RN report, pt required higher level of oxygen today, up to 6L, noted to desat with eating though no evidence of aspiration Review of Systems Review of Systems: comprehensive ROS Physical Exam 2 Physical Exam: Gen: NAD, in bed HEENT: NC/AT, anicteric, MMM Lungs: diminished b/l, no expiratory wheezing, mild bibasilar crackles CVS: s1s2nl, mild tachycardia Abd: soft, nl bowel sounds, NT : no torres Ext: b/l LE pitting edema Neuro: AAOx4 Psych: calm, cooperative Results & Data Results & Data Vital Signs (Past 12 Hours) Vital Signs Temp Pulse Pulse Resp BP Pulse Ox O2 Del Method 10/07/24 07:25 37.0 C 104 H 18 141/92 H 97 Nasal Cannula 10/07/24 07:13 84 18 92 Nasal Cannula 10/07/24 05:40 101 H 10/07/24 03:36 High Flow Nasal Cannula 10/07/24 02:49 36.7 C 116 H 18 131/81 91 Nasal Cannula 10/06/24 23:43 115 H 10/06/24 23:04 36.8 C 112 H 18 127/84 91 Nasal Cannula 10/06/24 20:10 Nasal Cannula O2 Flow Rate 10/07/24 07:25 4 10/07/24 07:13 4 10/07/24 05:40 10/07/24 03:36 4 10/07/24 02:49 5 10/06/24 23:43 10/06/24 23:04 4 10/06/24 20:10 4 PG Care Time/CCT Total # of Minutes Spent Total Time Spent with Patient: Total time spent is greater than 50% in coordination of care (as documented) at patient's floor/unit and/or counseling patient: Coding Level of Care Code 58075 SUB INP/OBS CARE 2/35MIN Diagnoses Acute respiratory failure with hypoxia J96.01 COPD with emphysema J43.9 Melena K92.1 Elevated troponin R79.89 Dehydration E86.0
[2024-10-07] MEDS: FUROSEMIDE 40 MG/4 ML VIAL IV SCH (13:06)
[2024-10-07] MEDS: FLUCONAZOLE 50 MG TAB PO ONE (14:08)
[2024-10-08 06:40] LABS: Hematocrit (blood only) 39.6 % (37.0-47.0); Hemoglobin 13.1 g/dl (12.0-16.0); Mean Corpuscular Hemoglobin 29.6 pg (25.0-34.0); Mean Corpuscular Hgb Conc 33.1 g/dL (32.0-36.0); Mean Corpuscular Volume 89.4 fL (80.0-100.0); Mean Platelet Volume 11.2 fL (9.4-12.4); Platelet Count 121 K/uL (130-400); RDW Coefficient of Variation 16.1 % (11.5-14.5); RDW Standard Deviation 51.7 fL (36.4-46.3); Red Blood Count 4.43 M/uL (4.20-5.40); White Blood Count 8.74 K/ul (4.8-10.8)
[2024-10-08 07:04] LABS: Creatinine Clr Calc Pharmacy 87.2 ml/min; Magnesium 1.4 mg/dl (1.7-2.4); Phosphorus 2.7 mg/dl (2.5-4.9); Potassium 3.7 mmol/L (3.5-5.1)
--- NOTE | 2024-10-08 07:05 | Hospitalist Progress Note ---
Date of Service October 08, 2024 Assessment & Plan (1) COPD with emphysema: (2) Rheumatoid arthritis: (3) ILD (interstitial lung disease): (4) Acute on chronic respiratory failure with hypoxemia: (5) CHF (congestive heart failure): Plan Pt is a 59 yo female with PMH of Rheumatoid Arthritis, COPD with Emphysema (baseline oxygen requirement of nasal cannula at 3L), interstitial lung disease, Hypertension, GERD, VINOD, and anxiety who was admitted due to acute hypoxic respiratory failure. #Tachycardia -HR this mornin -Denies chest pain, SOB -Patient reporting of some anxiety on staying hospital. -Likely due to anxiety or side effect of DuoNeb. Plan -Ordered EKG. Will review EKG and do further tests if indicated. -Ordered CT chest Angio and was negative for Pulmonary Embolism. #Acute hypoxic respiratory failure secondary to PNA/COPD exacerbation(resolved) -Baseline oxygen requirement of 3 l at home - Leukocytosis and elevated procal on admission (~10) with CT suggestive of pneumonia - blood cx negative - Completed 5 day course of cefepime and azithromycin Plan - Maintaining O2 Sat at 92 with 6L/min - Continue intensive Spirometry - Continue home inhalers - Will do 2 step oxygenation test before discharge - According to PT/OT note, can go home with home health Acute hypotension (resolved)/chronic HTN -Hold Midodrine -Hold home losartan -BP: 105/67 HFpEF/pulmonary HTN - TTE from 07/01/2024 showing EF of 55-60%, normal LV systolic function, moderately dilated RV with mildly decreased systolic function, mildly dilated RA, and elevated RV systolic pressure at 55-60 mmHg -under Furosemide 40 mg IV daily Hyponatremia-Resolved Na today: 136 ANISH- resolved Weakness - noted in the last 1-2 weeks with associated falls - PT/OT recommend patient can go home with home health Elevated troponin - resolved Chronic pain - Continue Suboxone and Gabapentin, monitor for excess sedation - PRN Modafinil Diet: heart healthy VTE ppx: Heparin Code: full Dispo: Home as per PT/OT note Admission and Anticipated Discharge Date Admission Date: September 30, 2024 Supervising Physician Co-Signing Physician Notes Attending attestation Pt seen and examined in concert with Dr. Barraza. In agreement with the documented findings as noted in the resident documentation with any exceptions or additions as noted here. Resting in bed, feeling improved approaching baseline re: respiratory status following treatment for COPD/PNA. On examination, S1/S2 nl tachycardia no MCG. Decreased breath sounds throughout but without wheeze/rales appreciated. Abd NT/ND BS+ve Sinus tachycardia - EKG as noted. Tele shows ongoing mild tachy in the low 100s. With level of onset and recent illness, will check CT for PE as potential cause Chronic hypoxic respiratory failure in the setting of COPD - PNA course completed, COPD exacerbation resolved. Continue baseline O2 at 3L, duoneb and inhaler therapy. Will need 2 step prior to discharge home w/ HH Hypertension s/p addition of midodrine - doing well off midodrine, likely d/c on discharge and re-evaluate on follow up Else see resident documentation as noted. Subjective Overnight events: no any Ongoing symptoms: Denies shortness of breath or weakness today. Has Bilateral lowe extremity edema which has been going on since she is sick New concerns: No any Review of Systems Review of Systems: As per HPI Physical Exam Physical Exam: Gen: NAD, in bed HEENT: NC/AT, anicteric, MMM Lungs: diminished b/l, no expiratory wheezing, mild bibasilar crackles CVS: s1s2nl, mild tachycardia Abd: soft, nl bowel sounds, NT : no torres Ext: b/l LE pitting edema Neuro: AAOx4 Psych: calm, cooperative Results & Data Results & Data Vital Signs (Past 12 Hours) Vital Signs Temp Pulse Pulse Resp BP Pulse Ox O2 Del Method 10/08/24 03:25 36.6 C 79 18 110/71 91 Nasal Cannula 10/07/24 23:15 126 H 10/07/24 22:25 36.5 C 115 H 18 126/83 90 Nasal Cannula 10/07/24 21:11 Nasal Cannula 10/07/24 19:38 102 H 16 98 Nasal Cannula 10/07/24 19:33 36.6 C 109 H 18 116/77 90 Nasal Cannula O2 Flow Rate 10/08/24 03:25 6 10/07/24 23:15 10/07/24 22:25 6 10/07/24 21:11 5 10/07/24 19:38 5 10/07/24 19:33 6 (5) CHF (congestive heart failure) Heart failure chronicity: acute Heart failure type: unspecified Qualified Code(s): I50.9 - Heart failure, unspecified
[2024-10-08] MEDS: MAGNESIUM SULFATE / D5W 1 GM/100 ML BAG IV SCH (09:03)
[2024-10-08] MEDS: SODIUM CHLORIDE 0.9% 500 ML IV ONE (12:37)
[2024-10-08] MEDS: OPTIRAY 320 125ml IV ONE (15:08)
--- NOTE | 2024-10-08 15:39 | CT Scan Report ---
CT angio chest PE protocol CT DOSE: 640.65 mGy.cm HISTORY: 59 years-old Female with PE. Acute shortness of breath TECHNIQUE: Multiple CTA images of the chest were obtained after the intravenous administration of 118 ml Optiray. Coronal and sagittal MIPS were obtained from the axial data set and were submitted for review. All measurements were obtained according to NASCET criteria. A dose lowering technique was u tilized adhering to the principles of ALARA. COMPARISON: 09/30/2024 FINDINGS: CTA: Moderate cardiomegaly, no loose enlargement of the right heart chambers. Trace pericardial effusion. No thoracic aortic aneurysm. Dilation of the main pulmonary artery, 3.6 cm. No pulmonary emboli ident ified. CT CHEST: Unremarkable thyroid. Stable mediastinal and hilar lymphadenopathy with hilar lymph nodes measuring u p to approximately 1.5 cm. No progressive lymphadenopathy. Trace pleural effusions. Chronic pulmonary fibrosis with emphysema. Mild intralobular septal thickeni ng. Unchanged distal paraesophageal lymph nodes an periportal lymphadenopathy. Unremarkable soft tiss ues. No acute fracture. IMPRESSION: 1. No pulmonary emboli. 2. Cardiomegaly with mild interstitial pulmonary edema and trace pleural effusions. 3. Chronic pulmonary fibrosis with pulmonary emphysema and pulmonary arterial hypertension redemonstr ated. 4. Unchanged thoracic and upper abdominal lymphadenopathy. 5. There is mildly improved aeration of the lungs compared to the 09/30/2024 exam. ACT 112: Negative or not required by law. The above report was generated using voice recognition software. It may contain grammatical, syntax o r spelling errors. Electronically signed by: Doug Morin M.D. 10/08/2024 3:37 PM
--- NOTE | 2024-10-08 16:43 | Electrocardiogram Report ---
Test Reason : Blood Pressure : */* mmHG Vent. Rate : 119 BPM Atrial Rate : 119 BPM P-R Int : 144 ms QRS Dur : 80 ms QT Int : 316 ms P-R-T Axes : 66 83 40 degrees QTcB Int : 444 ms Sinus tachycardia Right atrial enlargement Borderline ECG When compared with ECG of 30-Sep-2024 20:11, Vent. rate has increased by 42 bpm T wave inversion no longer evident in Anterior leads Confirmed by Giorgio Goodwin ([id number]) on 10/08/2024 4:43:26 PM Referred By: REFERRED SELF Confirmed By: Giorgio Goodwin
[2024-10-09 06:52] LABS: Hematocrit (blood only) 33.7 % (37.0-47.0); Hemoglobin 11.4 g/dl (12.0-16.0); Mean Corpuscular Hemoglobin 30.6 pg (25.0-34.0); Mean Corpuscular Hgb Conc 33.8 g/dL (32.0-36.0); Mean Corpuscular Volume 90.6 fL (80.0-100.0); Mean Platelet Volume 11.7 fL (9.4-12.4); Platelet Count 119 K/uL (130-400); RDW Coefficient of Variation 16.4 % (11.5-14.5); RDW Standard Deviation 51.6 fL (36.4-46.3); Red Blood Count 3.72 M/uL (4.20-5.40); White Blood Count 7.03 K/ul (4.8-10.8)
--- NOTE | 2024-10-09 07:02 | Hospitalist Progress Note ---
Date of Service October 09, 2024 Assessment & Plan (1) COPD with emphysema: (2) Rheumatoid arthritis: (3) ILD (interstitial lung disease): (4) Acute on chronic respiratory failure with hypoxemia: (5) CHF (congestive heart failure): Plan Pt is a 59 yo female with PMH of Rheumatoid Arthritis, COPD with Emphysema (baseline oxygen requirement of nasal cannula at 3L), interstitial lung disease, Hypertension, GERD, VINOD, and anxiety who was admitted due to acute hypoxic respiratory failure. 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 -EKG(10/08): Sinus Tachycardia with VR of 119, no acute changes - CT chest Angio (10/08) reveals no pulmonary emboli; cardiomegaly with mild interstitial pulmonary edema and trace pleural effusions; Chronic pulmonary fibrosis with pulmonary emphysema and pulmonary arterial hypertension. -TTE today reveals: Normal EF; Right ventricle systolic pressure elevated>60mmHg ; mildly elevated right atrium, right ventricle and left atrium. Inferior Vena cava is moderately dilated -2 step oxygenation test performed today. Requires 4l at rest and 12l with ambulation. -Patient not able to get back to her baseline O2 level. -Pulmonary on board. Appreciate pulm recs. 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 Increase the dose of Lasix to 60mg daily. Ac etazolamide 250mg BID. Check Daily BMP. 40meq of Potassium chloride. Patient need to followup with [facility] or [facility] for severe pulmonary hypertension and use of pulmonary hypertension specific medications. #Acute hypoxic respiratory failure secondary to PNA/COPD exacerbation(resolved) -Baseline oxygen requirement of 3 l at home - Leukocytosis and elevated procal on admission (~10) with CT suggestive of pneumonia - blood cx negative - Completed 5 day course of cefepime and azithromycin - Continue intensive Spirometry - Continue home inhalers #Acute hypotension (resolved)/chronic HTN -Stop Midodrine -Hold home losartan #HFpEF/pulmonary HTN -TTE today reveals: Normal EF; Right ventricle systolic pressure elevated>6 0mmHg; mildly elevated right atrium, right ventricle and left atrium. Inferior Vena cava is moderately dilated -Increase the dose of Lasix to 60mg IV Daily #Hyponatremia-Resolved Na today: 135 #ANISH- resolved #Weakness - noted in the last 1-2 weeks with associated falls - PT/OT recommend patient can go home with home health #Elevated troponin - resolved Chronic pain - Continue Suboxone and Gabapentin, monitor for excess sedation - PRN Modafinil Diet: heart healthy VTE ppx: Heparin Code: full Dispo: Home as per PT/OT note Admission and Anticipated Discharge Date Admission Date: September 30, 2024 Supervising Physician Co-Signing Physician Notes Attending attestation Pt seen and examined in concert with Dr. Barraza. In agreement with the documented findings as noted in the resident documentation with any exceptions or additions as noted here. Resting in bed, approaching respiratory baseline and that she could be discharged. Reports no palpitations, lightheadedness. Chronic dependent b/l LE swelling which improves with activity. On examination, S1/S2 nl tachycardia no MCG. Decreased breath sounds throughout but without wheeze/rales appreciated. Abd NT/ND BS+ve Sinus tachycardia - repeat echocardiogram today, as well as procal and BMP. CTA without PE appreciated. Reconsult pulmonology for ongoing symptoms and concern for right heart strain. Chronic hypoxic respiratory failure in the setting of COPD - PNA course completed, COPD exacerbation resolved. Continue baseline O2 at 3L, duoneb and inhaler therapy. Will need 2 step prior to discharge if O2 needs change. Hypertension s/p addition of midodrine - doing well off midodrine, likely d/c on discharge and re-evaluate on follow up Else see resident documentation as noted. Subjective Overnight events: no any Ongoing symptoms: Denies shortness of breath, chest pain, palpitation, weakness today. Has Bilateral lower extremity edema which has been going on since she is sick. When I saw her this morning she was in 8l of O2 saturating at 94% New concerns: No any Review of Systems Review of Systems: As per HPI Physical Exam Physical Exam: Gen: NAD, in bed HEENT: NC/AT, anicteric, MMM Lungs: diminished b/l, no expiratory wheezing CVS: S1S2nl, mild tachycardia Abd: soft, nl bowel sounds, NT : no torres Ext: b/l LE pitting edema Neuro: AAOx4 Psych: calm, cooperative Results & Data Results & Data Vital Signs (Past 12 Hours) Vital Signs Temp Pulse Pulse Resp BP Pulse Ox O2 Del Method 10/09/24 06:37 94 High Flow Nasal Cannula 04/15/25 03:00 36.7 C 99 H 15 126/79 94 High Flow Nasal Cannula 10/08/24 22:58 36.6 C 109 H 18 112/72 93 Nasal Cannula 10/08/24 22:15 104 H 18 90 Nasal Cannula 10/08/24 22:05 111 H 10/08/24 21:30 High Flow Nasal Cannula 10/08/24 20:02 89 14 91 Nasal Cannula 10/08/24 19:56 36.7 C 113 H 18 114/71 89 L Nasal Cannula O2 Flow Rate 10/09/24 06:37 3 10/09/24 03:00 10/08/24 22:58 6 10/08/24 22:15 8 10/08/24 22:05 10/08/24 21:30 7 10/08/24 20:02 5 10/08/24 19:56 6 (5) CHF (congestive heart failure) Heart failure chronicity: acute Heart failure type: unspecified Qualified Code(s): I50.9 - Heart failure, unspecified
[2024-10-09 07:29] LABS: BUN Creatinine Ratio 27.4 (10-20); Calcium 8.6 mg/dl (8.6-10.3); Creatinine Clr Calc Pharmacy 95.6 ml/min; Magnesium 1.7 mg/dl (1.7-2.4); Potassium 3.5 mmol/L (3.5-5.1)
--- NOTE | 2024-10-09 12:50 | Pulmonology Progress Note ---
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 Hawkins, admitted with exacerbation. Has a history of rheumatoid arthritis. Echo shows pulmonary hypertension. 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 Prior pulmonary note from [facility] reviewed 04/10/2024. Patient is felt to have progressive pulmonary fibrosis versus RA-ILD. She had a bronchoscopy in October 2019 for which was negative for malignancy and positive for H influenza, yeast. Envisia transbronchial biopsies were negative suggesting against a diagnosis of UIP/IPF. Patient was referred to the [facility] lung transplant team. Her PFTs in November 2023 revealed an FVC of 78% and a DLCO of 56%. She was previously on Ofev, but became intolerant of it due to diarrhea and stopped the medication. Patient does have a [id number] smoking history and quit in 2021. Echo 07/01/2024 with an RVSP of 50 to 60 mmHg and grade 1 diastolic dysfunction. Normal LVEF of 55 to 60%. Chest CTA 10/08/2024 with cardiomegaly, mild interstitial pulmonary edema, trace pleural effusions, chronic pulmonary fibrosis with pulmonary emphysema and pulmonary arterial hypertension, mild thoracic adenopathy and mildly improved aeration of the lungs compared to 09/30/2024. Upon my review there is peripheral subpleural reticulation, honeycombing seen in the upper lobes along mild honeycombing in the lower lobes bilaterally. Respiratory viral panel 10/01/2024 negative. Patient completed 5 days of cefepime and azithromycin this admission. White count today is 7000. Patient afebrile throughout hospitalization. Pro-Musa 09/30/2024: 10.3 10/02/2024: 6.06 10/09/24: 0.20 BNP 08/06/2024: 557 09/30/2024: 2591 10/09/2024: 961 Patient 7 L positive since hospital admission. Currently on 40 mg IV Lasix daily. Patient will likely pneumoconiosis versus RA related ILD vs other. Will give the patient 60 mg IV Lasix now along with acetazolamide 250 mg given elevated bicarbonate. Will continue with acetazolamide twice daily and check daily BMPs. Will give 40 mill equivalents of potassium chloride now as well. Patient will need follow-up with [facility] or [facility] regarding severe pulmonary hypertension and the use of pulmonary hypertension specific medications. Admission and Anticipated Discharge Date Admission Date: September 30, 2024 Subjective I was asked by the resident service to reevaluate the patient due to ongoing hypoxemia needing upwards of 12 L of oxygen with exertion. Reviewed the pul monary note from Dr. Cano 10/06/2024 which indicated that patient was appearing to approach her baseline and that her acute issues had likely resolved at that time. Review of Systems Review of Systems: All systems reviewed & are unremarkable except as noted in HPI & below Physical Exam Physical Exam: Constitutional: Patient appears to be of their stated age. Patient is in no apparent distress. Patient is well-developed. Eyes: Pupils are equal round and reactive to light. Conjunctivae are normal. Anicteric sclera. Ears nose, mouth and throat: Mallampati class 2. Normal posterior oropharynx. Uvula is midline. Neck: Trachea is midline. Visual inspection is normal. Respiratory: Bibasilar crackles. Mild tachypnea. Cardiovascular: Regular rate and rhythm. No murmurs. 3+ edema in the lower extremities bilaterally Gastrointestinal: Normal bowel sounds, soft, nontender and nondistended. No hepatosplenomegaly noted. Musculoskeletal: No cyanosis. Patient is able to move all extremities. Strength is 5 out of 5 in the upper and lower extremities. Skin: No rashes, warm dry and intact. Neurologic: No obvious focal neurological deficits seen. Psychiatric: Alert and oriented x3 with a euthymic affect. Results & Data Results & Data Vital Signs (Past 12 Hours) Vital Signs Temp Pulse Pulse Pulse Pulse Pulse Pulse 10/09/24 11:29 36.7 C 10/09/24 10:02 130 H 130 H 132 H 130 H 128 H 10/09/24 08:54 10/09/24 08:00 10/09/24 07:22 93 H 10/09/24 07:11 10/09/24 07:00 36.6 C 10/09/24 06:37 10/09/24 03:00 36.7 C Pulse Pulse Pulse Resp Resp Resp Resp 10/09/24 11:29 109 H 18 10/09/24 10:02 126 H 120 H 22 22 22 10/09/24 08:54 10/09/24 08:00 10/09/24 07:22 10/09/24 07:11 103 H 18 10/09/24 07:00 101 H 18 10/09/24 06:37 10/09/24 03:00 99 H 15 Resp Resp Resp Resp BP Pulse Ox Pulse Ox 10/09/24 11:29 120/79 90 10/09/24 10:02 22 20 19 18 82 L 10/09/24 08:54 90 10/09/24 08:00 10/09/24 07:22 10/09/24 07:11 92 10/09/24 07:00 126/81 92 10/09/24 06:37 94 10/09/24 03:00 126/79 94 Pulse Ox Pulse Ox Pulse Ox Pulse Ox Pulse Ox Pulse Ox O2 Del Method 10/09/24 11:29 Nasal Cannula 10/09/24 10:02 86 L 84 L 85 L 89 L 90 89 L 10/09/24 08:54 Nasal Cannula 10/09/24 08:00 Nasal Cannula 10/09/24 07:22 10/09/24 07:11 Nasal Cannula 10/09/24 07:00 Nasal Cannula 10/09/24 06:37 High Flow Nasal Cannula 10/09/24 03:00 High Flow Nasal Cannula O2 Flow Rate O2 Flow Rate O2 Flow Rate O2 Flow Rate O2 Flow Rate O2 Flow Rate O2 Flow Rate 10/09/24 11:29 4 10/09/24 10:02 4 8 6 10 12 4 10/09/24 08:54 4 10/09/24 08:00 4 10/09/24 07:22 10/09/24 07:11 4 10/09/24 07:00 3 10/09/24 06:37 3 10/09/24 03:00 O2 Flow Rate 10/09/24 11:29 10/09/24 10:02 4 10/09/24 08:54 10/09/24 08:00 10/09/24 07:22 10/09/24 07:11 10/09/24 07:00 10/09/24 06:37 10/09/24 03:00 PG Care Time/CCT Total # of Minutes Spent Total Time Spent with Patient: Total time spent is greater than 50% in coordination of care (as documented) at patient's floor/unit and/or counseling patient: Coding Level of Care Code 37789 SUB INP/OBS CARE 3/50MIN Diagnoses Acute on chronic respiratory failure with hypoxemia J96.21 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
--- NOTE | 2024-10-09 13:08 | XCELERA ---
[id number]
[2024-10-09] MEDS: FUROSEMIDE 40 MG/4 ML VIAL IV ONE (17:43)
[2024-10-09] MEDS: POTASSIUM CHLORIDE CRTAB 20 MEQ TABCR PO STA (17:43)
[2024-10-09] MEDS: acetaZOLAMIDE 250 MG in SYRINGE 0 ML IV SCH (21:04)
--- NOTE | 2024-10-10 07:26 | Hospitalist Progress Note ---
Date of Service October 10, 2024 Assessment & Plan (1) COPD with emphysema: (2) Rheumatoid arthritis: (3) ILD (interstitial lung disease): (4) Acute on chronic respiratory failure with hypoxemia: (5) CHF (congestive heart failure): Plan Pt is a 59 yo female with PMH of Rheumatoid Arthritis, COPD with Emphysema (baseline oxygen requirement of nasal cannula at 3L), interstitial lung disease, Hypertension, GERD, VINOD, and anxiety who was admitted due to acute hypoxic respiratory failure. 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 -EKG(10/08): Sinus Tachycardia with VR of 119, no acute changes - CT chest Angio (10/08) reveals no pulmonary emboli; cardiomegaly with mild interstitial pulmonary edema and trace pleural effusions; Chronic pulmonary fibrosis with pulmonary emphysema and pulmonary arterial hypertension. -TTE today reveals: Normal EF; Right ventricle systolic pressure elevated>60mmHg ; mildly elevated right atrium, right ventricle and left atrium. Inferior Vena cava is moderately dilated -2 step oxygenation test performed on 10/09. Requires 4l at rest and 12l with ambulation. -Patient not able to get back to her baseline O2 level. -Pulmonary on board. Appreciate pulm recs. 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 Increase the dose of Lasix to 60mg daily. Acetazolamide 250mg BID. Check Daily BMP. 40meq of Potassium chloride. Patient need to followup with [place] or [facility] for severe pulmonary hypertension and use of pulmonary hypertension specific medications. -Repeat 2 step O2 test. Acc to Dr. De Jesus, patient likely benefits from another diuretic therapy.Likely discharge tomorrow #Acute hypoxic respiratory failure secondary to PNA/COPD exacerbation(resolved) -Baseline oxygen requirement of 3 l at home - Leukocytosis and elevated procal on admission (~10) with CT suggestive of pneumonia - blood cx negative - Completed 5 day course of cefepime and azithromycin - Continue intensive Spirometry - Continue home inhalers #Acute hypotension (resolved)/chronic HTN -Stop Midodrine -Hold home losartan #HFpEF/pulmonary HTN -TTE today reveals: Normal EF; Right ventricle systolic pressure elevated>60mmHg; mildly elevated right atrium, right ventricle and left atrium. Inferior Vena cava is moderately dilated -Increase the dose of Lasix to 60mg IV Daily #Hyponatremia-Resolved Na today: 137 #ANISH- resolved #Weakness - noted in the last 1-2 weeks with associated falls - PT/OT recommend patient can go home with home health #Elevated troponin - resolved Chronic pain - Continue Suboxone and Gabapentin, monitor for excess sedation - PRN Modafinil Diet: heart healthy VTE ppx: Heparin Code: full Dispo: Home as per PT/OT note Admission and Anticipated Discharge Date Admission Date: September 30, 2024 Supervising Physician Co-Signing Physician Notes Attending attestation Pt seen and examined in concert with Dr. Barraza. In agreement with the documented findings as noted in the resident documentation with any exceptions or additions as noted here. Resting in bed, approaching respiratory baseline and that she could be discharged. Reports no palpitations, lightheadedness. Chronic dependent b/l LE swelling which improves with activity. On examination, S1/S2 nl tachycardia no MCG. Decreased breath sounds throughout but without wheeze/rales appreciated. Abd NT/ND BS+ve Sinus tachycardia - TTE as noted. CTA without PE appreciated. Pulmonology considering tachycardia 2/2 pulmonary HTN, recommended follow up with outpatient primary pulm (consider [facility] over [place]) Chronic hypoxic respiratory failure in the setting of COPD, concern for fluid overload - PNA course completed, COPD exacerbation resolved. Continue furosemide therapy and monitor I/O/weight. Continue O2 per protocol, duoneb and inhaler therapy. Significant increase in demand with ambulation, repeat 2step shows 4L at rest 7L w/ exertion. Hypertension s/p addition of midodrine - doing well off midodrine, d/c on discharge and re-evaluate on follow up Else see resident documentation as noted. Subjective Overnight events: no any Ongoing symptoms: Denies shortness of breath, chest pain, palpitation, weakness today. Has Bilateral lower extremity edema which has been going on since she is sick. When I saw her this morning she was in 4l of O2 saturating at 94%. She mentioned has to increase her O2 requirement when she has to go to bathroom. New concerns: No any Review of Systems Review of Systems: As per HPI Physical Exam Physical Exam: Gen: NAD, in bed HEENT: NC/AT, anicteric, MMM Lungs: diminished b/l, no expiratory wheezing CVS: S1S2nl, mild tachycardia Abd: soft, nl bowel sounds, NT : no torres Ext: b/l LE pitting edema Neuro: AAOx4 Psych: calm, cooperative Results & Data Results & Data Vital Signs (Past 12 Hours) Vital Signs Temp Pulse Pulse Resp BP Pulse Ox O2 Del Method 10/10/24 07:07 96 H 20 91 Nasal Cannula 10/10/24 02:58 36.7 C 91 H 18 114/72 92 Nasal Cannula 10/10/24 00:56 97 Oxymask 10/09/24 23:23 Nasal Cannula 10/09/24 22:40 36.7 C 100 H 18 106/70 93 Nasal Cannula 10/09/24 22:21 97 H 10/09/24 20:43 101 H 18 88 L Nasal Cannula 10/09/24 19:52 36.6 C 100 H 18 108/70 93 Nasal Cannula O2 Flow Rate FiO2 10/10/24 07:07 4 10/10/24 02:58 4 10/10/24 00:56 4 10/09/24 23:23 4 10/09/24 22:40 4 10/09/24 22:21 10/09/24 20:43 4 10/09/24 19:52 4 (5) CHF (congestive heart failure) Heart failure chronicity: acute Heart failure type: unspecified Qualified Code(s): I50.9 - Heart failure, unspecified
[2024-10-10 07:30] LABS: Base Excess VBG 11.6 mEq/L; HCO3 VBG 38 mmol/L; PCO2 VBG 56 mmHg (38-50); PO2 VBG 34 mmHg; pH VBG 7.44 (7.36-7.41)
[2024-10-10 07:32] LABS: Basophils # (auto) 0.03 K/uL (0.00-0.20); Basophils % (auto) 0.4 %; Eosinophils # (auto) 0.17 K/uL (0.00-0.50); Eosinophils % (auto) 2.5 %; Hematocrit (blood only) 34.9 % (37.0-47.0); Hemoglobin 11.6 g/dl (12.0-16.0); Immature Granulocytes # (auto) 0.05 K/uL (0.01-0.20); Immature Granulocytes % (auto) 0.7 %; Lymphocytes # (auto) 1.97 K/uL (1.20-3.40); Lymphocytes % (auto) 29.1 %; Mean Corpuscular Hemoglobin 30.2 pg (25.0-34.0); Mean Corpuscular Hgb Conc 33.2 g/dL (32.0-36.0); Mean Corpuscular Volume 90.9 fL (80.0-100.0); Mean Platelet Volume 11.3 fL (9.4-12.4); Monocytes # (auto) 0.69 K/uL (0.11-0.59); Monocytes % (auto) 10.2 %; Neutrophils # (auto) 3.85 K/uL (1.40-6.50); Neutrophils % (auto) 57.1 %; Platelet Count 152 K/uL (130-400); RDW Coefficient of Variation 16.2 % (11.5-14.5); RDW Standard Deviation 52.3 fL (36.4-46.3); Red Blood Count 3.84 M/uL (4.20-5.40); White Blood Count 6.76 K/ul (4.8-10.8)
[2024-10-10 08:18] LABS: Albumin Level 2.9 gm/dl (3.4-5.0); Bilirubin,Total 1.1 mg/dl (0.2-1.0); Calcium 8.8 mg/dl (8.6-10.3); Potassium 3.6 mmol/L (3.5-5.1)
[2024-10-10 08:24] LABS: Albumin Globulin Ratio 0.8 (0.9-2); BUN Creatinine Ratio 25.8 (10-20); Creatinine Clr Calc Pharmacy 89.8 ml/min; Globulin 3.5 gm/dl (2.5-4.0); Total Protein 6.4 gm/dl (6.0-8.3)
[2024-10-10] MEDS ORDERED: FUROSEMIDE 40 MG/4 ML VIAL IV SCH (09:00)
[2024-10-10] MEDS: metOLazone 2.5 MG TABLET PO ONE (09:18)
[2024-10-10] MEDS: FUROSEMIDE 40 MG/4 ML VIAL IV SCH (09:19)
[2024-10-10] MEDS: POTASSIUM CHLORIDE 20 MEQ/15 ML UDC PO STA (09:19)
[2024-10-10] MEDS: DOCUSATE SODIUM/SENNA 50/8.6MG TAB PO PRN (09:21)
[2024-10-10] MEDS: MAGNESIUM SULFATE / D5W 1 GM/100 ML BAG IV SCH (09:30)
--- NOTE | 2024-10-10 17:08 | Pulmonology Progress Note ---
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 followed by Dr. Hawkins, admitted with exacerbation. Has a history of rheumatoid arthritis. Echo shows pulmonary hypertension. 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 Prior pulmonary note from [facility] reviewed 04/10/2024. Patient is felt to have progressive pulmonary fibrosis versus RA-ILD. She had a bronchoscopy in October 2019 for which was negative for malignancy and positive for H influenza, yeast. Envisia transbronchial biopsies were negative suggesting against a diagnosis of UIP/IPF. Patient was referred to the [place] lung transplant team. Her PFTs in November 2023 revealed an FVC of 78% and a DLCO of 56%. She was previously on Ofev, but became intolerant of it due to diarrhea and stopped the medication. Patient does have a [id number]-[id number] smoking history and quit in 2021. Echo 07/01/2024 with an RVSP of 50 to 60 mmHg and grade 1 diastolic dysfunction. Normal LVEF of 55 to 60%. Chest CTA 10/08/2024 with cardiomegaly, mild interstitial pulmonary edema, trace pleural effusions, chronic pulmonary fibrosis with pulmonary emphysema and pulmonary arterial hypertension, mild thoracic adenopathy and mildly improved aeration of the lungs compared to 09/30/2024. Upon my review there is peripheral subpleural reticulation, honeycombing seen in the upper lobes along mild honeycombing in the lower lobes bilaterally. Respiratory viral panel 10/01/2024 negative. Patient completed 5 days of cefepime and azithromycin this admission. White count today is 7000. Patient afebrile throughout hospitalization. Pro-Musa 09/30/2024: 10.3 10/02/2024: 6.06 10/09/24: 0.20 BNP 08/06/2024: 557 09/30/2024: 2591 10/09/2024: 961 10/10/2024: 670 Patient responding favorably to Lasix and metolazone. Continue diamox. Patient will likely pneumoconiosis versus RA related ILD vs other. Patient will need follow-up with [place] or [facility] regarding severe pulmonary hypertension and the use of pulmonary hypertension specific medications. Admission and Anticipated Discharge Date Admission Date: September 30, 2024 Subjective ROMANO significantly improved today. Still with signifcant LE edema. Requiring 7L of o2 with exertion and 4 at rest. No cp/sob/n/v. Review of Systems Review of Systems: All systems reviewed & are unremarkable except as noted in HPI & below Physical Exam Physical Exam: Constitutional: Patient appears to be of their stated age. Patient is in no apparent distress. Patient is well-developed. Eyes: Pupils are equal round and reactive to light. Conjunctivae are normal. Anicteric sclera. Ears nose, mouth and throat: Mallampati class 2. Normal posterior oropharynx. Uvula is midline. Neck: Trachea is midline. Visual inspection is normal. Respiratory: Bibasilar crackles. Mild tachypnea. Cardiovascular: Regular rate and rhythm. No murmurs. 3+ edema in the lower extremities bilaterally Gastrointestinal: Normal bowel sounds, soft, nontender and nondistended. No hepatosplenomegaly noted. Musculoskeletal: No cyanosis. Patient is able to move all extremities. Strength is 5 out of 5 in the upper and lower extremities. Skin: No rashes, warm dry and intact. Neurologic: No obvious focal neurological deficits seen. Psychiatric: Alert and oriented x3 with a euthymic affect. Results & Data Results & Data Vital Signs (Past 12 Hours) Vital Signs Temp Pulse Pulse Pulse Pulse Pulse Pulse 10/10/24 16:24 125 H 127 H 127 H 129 H 10/10/24 16:15 36.6 C 10/10/24 14:51 36.6 C 107 H 10/10/24 14:40 110 H 10/10/24 11:49 36.6 C 10/10/24 10:33 10/10/24 08:00 83 10/10/24 07:40 36.2 C L 10/10/24 07:07 Pulse Pulse Pulse Resp Resp Resp Resp 10/10/24 16:24 118 H 116 H 20 22 22 10/10/24 16:15 97 H 18 10/10/24 14:51 129 H 18 10/10/24 14:40 10/10/24 11:49 129 H 18 10/10/24 10:33 10/10/24 08:00 10/10/24 07:40 93 H 18 10/10/24 07:07 96 H 20 Resp Resp Resp BP Pulse Ox Pulse Ox Pulse Ox 10/10/24 16:24 22 18 18 83 L 85 L 10/10/24 16:15 117/78 90 10/10/24 14:51 91/61 L 90 10/10/24 14:40 10/10/24 11:49 91/61 L 90 10/10/24 10:33 10/10/24 08:00 10/10/24 07:40 150/85 H 90 10/10/24 07:07 91 Pulse Ox Pulse Ox Pulse Ox Pulse Ox O2 Del Method O2 Flow Rate O2 Flow Rate 10/10/24 16:24 88 L 91 90 87 L 4 10/10/24 16:15 Nasal Cannula 4 10/10/24 14:51 10/10/24 14:40 10/10/24 11:49 Nasal Cannula 4 10/10/24 10:33 Nasal Cannula 4 10/10/24 08:00 10/10/24 07:40 Nasal Cannula 4 10/10/24 07:07 Nasal Cannula 4 O2 Flow Rate O2 Flow Rate O2 Flow Rate O2 Flow Rate O2 Flow Rate 10/10/24 16:24 5 6 7 4 3 10/10/24 16:15 10/10/24 14:51 10/10/24 14:40 10/10/24 11:49 10/10/24 10:33 10/10/24 08:00 10/10/24 07:40 10/10/24 07:07 PG Care Time/CCT Total # of Minutes Spent Total Time Spent with Patient: Total time spent is greater than 50% in coordination of care (as documented) at patient's floor/unit and/or counseling patient: Coding Level of Care Code 19288 SUB INP/OBS CARE 2/35MIN Diagnoses Acute on chronic respiratory failure with hypoxemia J96.21 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
[2024-10-10] MEDS: FUROSEMIDE 40 MG/4 ML VIAL IV ONE ×2 (17:20→17:42)
[2024-10-10] MEDS ORDERED: Nursing to Pharmacy Communication SCH (17:30)
[2024-10-11] MEDS ORDERED: SODIUM CHLORIDE 0.65% NA SOLN 45 ML (OCEAN) PRN (03:48)
[2024-10-11 06:43] LABS: Base Excess VBG 12.1 mEq/L; HCO3 VBG 37 mmol/L; Oxygen Saturation VBG 83.9 %; PCO2 VBG 49 mmHg (38-50); PO2 VBG 50 mmHg; pH VBG 7.49 (7.36-7.41)
[2024-10-11 06:48] LABS: Basophils # (auto) 0.03 K/uL (0.00-0.20); Basophils % (auto) 0.3 %; Eosinophils # (auto) 0.16 K/uL (0.00-0.50); Eosinophils % (auto) 1.7 %; Hematocrit (blood only) 36.6 % (37.0-47.0); Hemoglobin 12.2 g/dl (12.0-16.0); Immature Granulocytes # (auto) 0.05 K/uL (0.01-0.20); Immature Granulocytes % (auto) 0.5 %; Lymphocytes # (auto) 1.74 K/uL (1.20-3.40); Lymphocytes % (auto) 18.2 %; Mean Corpuscular Hemoglobin 29.8 pg (25.0-34.0); Mean Corpuscular Hgb Conc 33.3 g/dL (32.0-36.0); Mean Corpuscular Volume 89.3 fL (80.0-100.0); Mean Platelet Volume 11.1 fL (9.4-12.4); Monocytes # (auto) 0.71 K/uL (0.11-0.59); Monocytes % (auto) 7.4 %; Neutrophils # (auto) 6.86 K/uL (1.40-6.50); Neutrophils % (auto) 71.9 %; Platelet Count 206 K/uL (130-400); RDW Coefficient of Variation 16.1 % (11.5-14.5); RDW Standard Deviation 51.8 fL (36.4-46.3); White Blood Count 9.55 K/ul (4.8-10.8)
--- NOTE | 2024-10-11 06:55 | Hospitalist Progress Note ---
Date of Service October 11, 2024 Assessment & Plan (1) COPD with emphysema: (2) Rheumatoid arthritis: (3) ILD (interstitial lung disease): (4) Acute on chronic respiratory failure with hypoxemia: (5) CHF (congestive heart failure): Plan Pt is a 59 yo female with PMH of Rheumatoid Arthritis, COPD with Emphysema (baseline oxygen requirement of nasal cannula at 3L), interstitial lung disease, Hypertension, GERD, VINOD, and anxiety who was admitted due to acute hypoxic respiratory failure. 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 -EKG(10/08): Sinus Tachycardia with VR of 119, no acute changes - CT chest Angio (10/08) reveals no pulmonary emboli; cardiomegaly with mild interstitial pulmonary edema and trace pleural effusions; Chronic pulmonary fibrosis with pulmonary emphysema and pulmonary arterial hypertension. -TTE today reveals: Normal EF; Right ventricle systolic pressure elevated>60mmHg ; mildly elevated right atrium, right ventricle and left atrium. Inferior Vena cava is moderately dilated -2 step oxygenation test performed on 10/09. Requires 4l at rest and 12l with ambulation. -Patient not able to get back to her baseline O2 level. -Pulmonary on board. Appreciate pulm recs. 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 Increase the dose of Lasix to 60mg daily. Acetazolamide 250mg BID. Check Daily BMP. 40meq of Potassium chloride. Patient need to followup with [place] or [facility] for severe pulmonary hypertension and use of pulmonary hypertension specific medications. -Repeat 2 step O2 test. Acc to Dr. De Jesus, patient likely benefits from another diuretic therapy.Likely discharge tomorrow #Acute hypoxic respiratory failure secondary to PNA/COPD exacerbation(resolved) -Baseline oxygen requirement of 3 l at home - Leukocytosis and elevated procal on admission (~10) with CT suggestive of pneumonia - blood cx negative - Completed 5 day course of cefepime and azithromycin - Continue intensive Spirometry - Continue home inhalers #Acute hypotension (resolved)/chronic HTN -Stop Midodrine -Hold home losartan #HFpEF/pulmonary HTN -TTE today reveals: Normal EF; Right ventricle systolic pressure elevated>60mmHg; mildly elevated right atrium, right ventricle and left atrium. Inferior Vena cava is moderately dilated -Increase the dose of Lasix to 60mg IV Daily #Hyponatremia-Resolved Na today: 137 #ANISH- resolved #Weakness - noted in the last 1-2 weeks with associated falls - PT/OT recommend patient can go home with home health #Elevated troponin - resolved Chronic pain - Continue Suboxone and Gabapentin, monitor for excess sedation - PRN Modafinil Diet: heart healthy VTE ppx: Heparin Code: full Dispo: Home as per PT/OT note Admission and Anticipated Discharge Date Admission Date: September 30, 2024 Subjective ROMANO significantly improved today. Still with signifcant LE edema. Requiring 7L of o2 with exertion and 4 at rest. No cp/sob/n/v. Reported having anxiety this morning. Review of Systems Review of Systems: As per HPI Physical Exam Physical Exam: Gen: NAD, in bed HEENT: NC/AT, anicteric, MMM Lungs: diminished b/l, no expiratory wheezing CVS: S1S2nl, mild tachycardia Abd: soft, nl bowel sounds, NT : no torres Ext: b/l LE pitting edema Neuro: AAOx4 Psych: calm, cooperative Results & Data Results & Data Vital Signs (Past 12 Hours) Vital Signs Temp Pulse Pulse Resp BP Pulse Ox O2 Del Method 10/11/24 02:51 36.7 C 96 H 18 106/72 92 Nasal Cannula 10/10/24 22:46 36.4 C L 94 H 18 93/62 L 96 Nasal Cannula 10/10/24 21:48 Nasal Cannula 10/10/24 21:45 101 H 10/10/24 19:34 36.6 C 95 H 18 94/59 L 93 Nasal Cannula 10/10/24 19:34 98 H 18 95 Nasal Cannula O2 Flow Rate 10/11/24 02:51 4 10/10/24 22:46 4 10/10/24 21:48 4 10/10/24 21:45 10/10/24 19:34 4 10/10/24 19:34 4 (5) CHF (congestive heart failure) Heart failure chronicity: acute Heart failure type: unspecified Qualified Code(s): I50.9 - Heart failure, unspecified
[2024-10-11 07:19] LABS: Albumin Level 3.5 gm/dl (3.4-5.0); Bilirubin,Total 1.2 mg/dl (0.2-1.0); Calcium 9.5 mg/dl (8.6-10.3); Magnesium 1.9 mg/dl (1.7-2.4); Potassium 3.3 mmol/L (3.5-5.1)
[2024-10-11 07:25] LABS: Albumin Globulin Ratio 0.9 (0.9-2); BUN Creatinine Ratio 27.4 (10-20); Creatinine Clr Calc Pharmacy 70.5 ml/min; Total Protein 7.5 gm/dl (6.0-8.3)
[2024-10-11] MEDS: FUROSEMIDE 40 MG/4 ML VIAL IV SCH (08:34)
[2024-10-11] MEDS ORDERED: FUROSEMIDE 40 MG/4 ML VIAL IV SCH (09:00)
--- NOTE | 2024-10-11 09:24 | Pulmonology Progress Note ---
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 Hawkins, admitted with exacerbation. Has a history of rheumatoid arthritis. Echo shows pulmonary hypertension. 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 Prior pulmonary note from [facility] reviewed 04/10/2024. Patient is felt to have progressive pulmonary fibrosis versus RA-ILD. She had a bronchoscopy in October 2019 for which was negative for malignancy and positive for H influenza, yeast. Envisia transbronchial biopsies were negative suggesting against a diagnosis of UIP/IPF. Patient was referred to the [place] lung transplant team. Her PFTs in November 2023 revealed an FVC of 78% and a DLCO of 56%. She was previously on Ofev, but became intolerant of it due to diarrhea and stopped the medication. Patient does have a 45-rbak-zygy smoking history and quit in 2021. Echo 07/01/2024 with an RVSP of 50 to 60 mmHg and grade 1 diastolic dysfunction. Normal LVEF of 55 to 60%. Chest CTA 10/08/2024 with cardiomegaly, mild interstitial pulmonary edema, trace pleural effusions, chronic pulmonary fibrosis with pulmonary emphysema and pulmonary arterial hypertension, mild thoracic adenopathy and mildly improved aeration of the lungs compared to 09/30/2024. Upon my review there is peripheral subpleural reticulation, honeycombing seen in the upper lobes along mild honeycombing in the lower lobes bilaterally. Respiratory viral panel 10/01/2024 negative. Patient completed 5 days of cefepime and azithromycin this admission. White count today is 7000. Patient afebrile throughout hospitalization. Pro-Musa 09/30/2024: 10.3 10/02/2024: 6.06 10/09/24: 0.20 BNP 08/06/2024: 557 09/30/2024: 2591 10/09/2024: 961 10/10/2024: 670 10/11/2024: 415 Patient with likely pneumoconiosis versus RA related ILD vs other. Patient with new onset hyponatremia and transaminitis today. Will recheck a BMP at around 11. If further drop in sodium, recommend holding further diuretics, fluid restricting and rechecking BMP later this evening. Additionally, replacing magnesium and potassium this morning. She received an additional dose of Diamox and 60 mg IV Lasix this morning. Etiology of transaminitis is uncertain. Patient did have a liver ultrasound which revealed sludge in a distended gallbladder. ? Acalculous cholecystitis. Will defer transaminitis management to primary team. Patient will need follow-up with [place] or [facility] regarding severe pulmonary hypertension and the use of pulmonary hypertension specific medications. Admission and Anticipated Discharge Date Admission Date: September 30, 2024 Subjective Patient feels about the same as yesterday. Occasional shortness of breath with exertion. Continuing to require 4 L of oxygen at rest. No chest pain, fevers, chills or night sweats. Labs reviewed this morning with new onset hyponatremia and transaminitis noted. No significant changes in her blood pressure or vital signs otherwise. Discussed with the patient's primary resident service team. Review of Systems Review of Systems: All systems reviewed & are unremarkable except as noted in HPI & below Physical Exam Physical Exam: Constitutional: Patient appears to be of their stated age. Patient is in no apparent distress. Patient is well-developed. Eyes: Pupils are equal round and reactive to light. Conjunctivae are normal. Anicteric sclera. Ears nose, mouth and throat: Mallampati class 2. Normal posterior oropharynx. Uvula is midline. Neck: Trachea is midline. Visual inspection is normal. Respiratory: Bibasilar crackles. Mild tachypnea. Cardiovascular: Regular rate and rhythm. No murmurs. 3+ edema in the lower extremities bilaterally Gastrointestinal: Normal bowel sounds, soft, nontender and nondistended. No hepatosplenomegaly noted. Musculoskeletal: No cyanosis. Patient is able to move all extremities. Strength is 5 out of 5 in the upper and lower extremities. Skin: No rashes, warm dry and intact. Neurologic: No obvious focal neurological deficits seen. Psychiatric: Alert and oriented x3 with a euthymic affect. Results & Data Results & Data Vital Signs (Past 12 Hours) Vital Signs Temp Pulse Pulse Pulse Resp BP Pulse Ox 10/11/24 08:31 98 H 106/71 10/11/24 07:18 37.4 C 100 H 20 94/59 L 91 10/11/24 07:02 103 H 18 90 10/11/24 02:51 36.7 C 96 H 18 106/72 92 10/10/24 22:46 36.4 C L 94 H 18 93/62 L 96 10/10/24 21:48 10/10/24 21:45 101 H O2 Del Method O2 Flow Rate 10/11/24 08:31 10/11/24 07:18 Nasal Cannula 4 10/11/24 07:02 Nasal Cannula 4 10/11/24 02:51 Nasal Cannula 4 10/10/24 22:46 Nasal Cannula 4 10/10/24 21:48 Nasal Cannula 4 10/10/24 21:45 PG Care Time/CCT Total # of Minutes Spent Total Time Spent with Patient: Total time spent is greater than 50% in coordination of care (as documented) at patient's floor/unit and/or counseling patient: Coding Level of Care Code 70884 SUB INP/OBS CARE 2/35MIN Diagnoses Acute on chronic respiratory failure with hypoxemia J96.21 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 Hyponatremia E87.1 Transaminitis R74.01
[2024-10-11] MEDS: MAGNESIUM SULFATE / D5W 1 GM/100 ML BAG IV ONE (09:34)
[2024-10-11] MEDS: POTASSIUM CHLORIDE CRTAB 20 MEQ TABCR PO STA ×2 (09:36→14:27)
[2024-10-11 10:57] VITALS: BP 116/84; RESP 18; TEMP 97.3; O2SAT 93
[2024-10-11] MEDS: LORazepam 0.5 MG TAB PO STA (11:00)
[2024-10-11 11:47] LABS: Potassium 3.6 mmol/L (3.5-5.1)
[2024-10-11 11:52] LABS: BUN Creatinine Ratio 30.1 (10-20); Creatinine Clr Calc Pharmacy 71.4 ml/min
--- NOTE | 2024-10-11 14:28 | Ultrasound Report ---
US liver CLINICAL HISTORY: elevated liver enzymes COMPARISON STUDY: 10/01/[address] of 09/30/2024 FINDINGS: Pancreas is obscured by overlying bowel gas artifact. Liver demonstrates mild diffuse heter ogeneous echotexture consistent with mild fatty liver. Liver measures approximately 17 cm. There is n ormal direction of flow in the portal vein. Common bile duct measures 7 mm diameter, mildly dilated a nd stable. There are multiple gallstones. No gallbladder wall thickening seen. No pericholecystic flu id or ascites. Right kidney shows no hydronephrosis. IMPRESSION: 1. Stable mild fatty liver. 2. Multiple gallstones with no evidence of acute cholecystitis. 3. Stable mild dilatation of the common bile duct. ACT 112: Negative or not required by law. Electronically signed by: Octavio Zeng M.D. 10/11/2024 2:27 PM
--- NOTE | 2024-10-11 15:41 | Discharge Summary ---
Date of Service October 11, 2024 Admission HPI Per Admitting Provider Patient is a 59-year-old female with past medical history of rheumatoid arthritis, COPD with emphysema (baseline oxygen requirement of nasal cannula at 3 lpm), interstitial lung disease, hypertension, GERD, VINOD, and anxiety who was brought to the emergency department due to noted increasing confusion and shortness of breath. Patient was last noted to be at baseline a little over a week ago when she had traveled to [place] to visit her mother and her granddaughter. After returning home from his trip, patient notes that she had been feeling progressively more short of breath and weak, leading to recurrent falls at home. In addition to this, patient has also been having a cough, nausea/vomiting, looser stools, decreased p.o. intake and hydration (had not eaten or drunk much since Tuesday), patient believes she may have had a fever at home at 1 point but was never quantified. Due to the symptoms, patient had been using once daily home prednisone and attempt to control her symptoms but has not taken this in a few days. Patient's daughter states that patient has been more difficult to get on the phone, and that the patient's friend had called her saying that the patient was not answering, after which her partner had gone to see the patient and noted that she was found on the floor surrounded by feces and vomit. Patient's daughter also notes that yesterday she had a soft bowel movement that was darker/black and also endorses having epigastric pain. Patient is being seen by a new physician in [place] where they have begun discussions for coordination of lung transplant. Patient states that she had an episode of chest pain while she was visiting her family in [place], but has not had this again since then. ED Course: Patient found to be hypoxic with saturation in mid to high 80s was therefore started on oxymask and later progressed to nonrebreather and then HFNC when hypoxia persisted with improvement in oxygen levels. IV Solu-Medrol 60 mg given x 1. Morphine, Zofran, and albuterol given for symptom control. NSS 500 mL bolus given and then started at maintenance rate. ASA 300 mg NH given due to elevated troponin. Ceftriaxone IV x 1 given. Labs/Imaging: CBC with leukocytosis of 17.75 with neutrophilic predominance, hemoglobin is 15.8, platelets at 182. CMP with hyponatremia of 126, normal potassium levels at 4.5, hypochloremia of 85, bicarb within normal limits at 26, elevated creatinine of 2.5. LFTs with elevated AST (117) and ALT (107). Mildly decreased ionized calcium. Lactate elevated at 4.1. Troponin elevated at 625.5 with 2-hour repeat showing 573.1. EKG unremarkable. CTAP showing hepatic steatosis. Chest CT with possible pneumonitis versus developing right-sided PNA. Medical History: [Reviewed] Medications: [Reviewed] Surgical History: [Reviewed] Family history: [Reviewed] Allergies: [Reviewed] Social History: [Reviewed] Code Status: FULL Admission Exam Per Admitting Provider PHYSICAL EXAM: Vital signs reviewed. General: Chronically ill-appearing 59-year-old female, in no significant distress. HEENT: No scleral icterus, PERRLA, neck supple. Atraumatic. Cardiovascular: Regular rate and rhythm, no extra sounds. Pulmonary: Diminished breath sounds to auscultation bilaterally, increased work of breathing. On nonrebreather. Abdomen: Soft, nontender, nondistended, positive bowel sounds. Musculoskeletal: Atraumatic, no peripheral edema. Neurologic: Patient awake alert and oriented x 3, speech is clear Skin: Warm, dry, no rash Principal Diagnosis Acute hypoxic respiratory failure secondary to PNA/COPD exacerbation Discharge Exam Gen: NAD, in bed HEENT: NC/AT, anicteric, MMM Lungs: diminished b/l, no expiratory wheezing CVS: S1S2nl, mild tachycardia Abd: soft, nl bowel sounds, NT : no torres Ext: b/l LE pitting edema Neuro: AAOx4 Psych: calm, cooperative Discharge Data Allergies Allergy/AdvReac Type Severity Reaction Status Date / Time No Known Allergies Allergy Unverified 09/30/24 23:08 Consultations 09/30/24 22:09 ED Decision to Admit Stat 10/01/24 03:04 Consult Preparation Plant Repairer Routine 10/09/24 11:02 Consult Pulmonology Routine Ordered Studies 09/30/24 21:23 CT abd pelvis wo con Stat CT chest diagnostic wo con Stat 10/01/24 02:15 US RUQ [US liver] Urgent 10/08/24 13:51 CT angio chest PE protocol Urgent 10/11/24 10:55 US liver Stat Hospital Course (1) COPD with emphysema: (2) Rheumatoid arthritis: (3) ILD (interstitial lung disease): (4) Acute on chronic respiratory failure with hypoxemia: (5) CHF (congestive heart failure): Plan Pt is a 59 yo female with PMH of Rheumatoid Arthritis, COPD with Emphysema (baseline oxygen requirement of nasal cannula at 3L), interstitial lung disease, Hypertension, GERD, VINOD, and anxiety who was admitted due to acute hypoxic respiratory failure. #Hyponatremia -Na: 130 on repeat 129 -Plan to discharge today with repeat BMP on outpatient tomorrow. #Transminase -ALP bumped to 194 today -Denies abdominal pain, RUQ pain, N/V -US liver ordered today reveals stable mild fatty liver, multiple gall stones without cholecystitis and dilation of common bile duct. -Recommended patient to followup with surgery in the outpatient. -Follow up with PCP after 1 week. Monitor liver enzymes. 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 -EKG(10/08): Sinus Tachycardia with VR of 119, no acute changes - CT chest Angio (10/08) reveals no pulmonary emboli; cardiomegaly with mild interstitial pulmonary edema and trace pleural effusions; Chronic pulmonary fibrosis with pulmonary emphysema and pulmonary arterial hypertension. -TTE today reveals: Normal EF; Right ventricle systolic pressure elevated>60mmHg; mildly elevated right atrium, right ventricle and left atrium. Inferior Vena cava is moderately dilated -Repeat 2 step O2 test. Needs 2l at rest and 7l with ambulation. Plan to discharge today. New o2 concentrator at home that delivers upto 10l. #Hyponatremia -Na: 130 on repeat 129 -Plan to discharge today with repeat BMP on outpatient tomorrow. #HFpEF/pulmonary HTN -TTE today reveals: Normal EF; Right ventricle systolic pressure elevated>60mmHg; mildly elevated right atrium, right ventricle and left atrium. Inferior Vena cava is moderately dilated -Continue home dose of Furosemide 40mg daily #Weakness - noted in the last 1-2 weeks with associated falls - PT/OT recommend patient can go home with home health Chronic pain - Continue Suboxone and Gabapentin, monitor for excess sedation - PRN Modafinil Total Time Total Time Spent Total Time Spent (In Minutes): See attending attestation Discharge Plan Discharge Items Patient Disposition: Home - Self-Care Reason For Visit: SOB, AMS Discharge Diagnosis: Acute hypoxic respiratory failure secondary to PNA/COPD exacerbation Activity: Resume your previous activity Non-emergency contact: Primary Care Provider and Radio Antenna Installer Call non-emergency contact if: you have any medication questions, your rectal temperature is above 100.4 and your wound pain has increased Follow-up/Referrals: Narciso Castaneda DO [Primary Care Provider] - 10/24/24 2:00 pm (Hospital follow up scheduled October 24 at 2:00) Shahid Hawkins MD, MPH [Outside Practitioners] - (need follow-up with [facility] or [facility] regarding severe pulmonary hypertension and the use of pulmonary hypertension specific medications.) Diet: Regular Ambulatory Orders: Basic Metabolic Panel (Routine) Timeframe: 1 Day Location: Determined by Patient Ordered By: Jorge Palm Attending Provider Instructions: You were admitted to the hospital for acute hypoxic respiratory failure secondary to PNA/COPD exacerbation. You are treated with antibiotics and improved. Your Sodium went down below normal. Make sure to Check your Sodium level tomorrow on outpatient to monitor the trend. A discharge summary will be sent to your primary care physician to ensure continuity of care. Please bring this discharge summary with you to your next office appointment so that your provider can review it at that time. Follow-up appointments: * Make a follow-up appointment with your PCP within the next week. It is very important that you follow up with them shortly after discharge from the hospital. * Make a follow-up appointment with your scrap metal collector within the next week. Is very important that you follow up with them shortly after discharge from the hospital. * Keep all your follow-up appointments as already scheduled. If you cannot make an appointment, notify your provider. Medications: Your medication list has been reviewed and reconciled upon discharge to ensure accuracy and continuity of care. An updated list of all your medications is included with your hospital discharge paperwork. Please review this list closely, and make note of any changes. * You had a 2 step done prior to discharge which showed that you need 4 L nasal cannula at rest. You need 7 L nasal cannula with ambulation. * If you have any issues filling these prescriptions, please call [phone] and ask to leave a message for Dr. Quinonez. * Take your medications as instructed; do not skip a dose of your medicines. Make sure all of your doctors know every medicine you are taking (including icvd-knm-vrkjclm medicines, vitamins, and supplements). Call your primary care provider before taking any new medicines (including over- the-counter medicines, vitamins, and supplements), because some of these may interact with your current medications, or may make your symptoms worse. Tell your primary care provider if you cannot afford your medications. CONTACT YOUR PRIMARY CARE PROVIDER if you experience any of the following: * Worsening of symptoms * Fever, chills, or fatigue * Difficulty following your treatment plan, or difficulty taking medications CALL 911 OR GO TO THE EMERGENCY DEPARTMENT if you experience any of the following: * Sudden, severe abdominal pain or nausea/vomiting * Severe chest pain, or chest pain that radiates (moves) to your jaw or arm * Sudden, severe shortness of breath or difficulty breathing Thank you for allowing us to participate in your care. Pending Studies at Discharge: No Stand-Alone Forms: [facility], Smoking Cessation Medications and DC Order Prescriptions: Continued furosemide 40 mg tablet 40 mg PO .MWF Qty: 14 3RF potassium chloride 10 mEq tablet extended release 10 meq PO .MWF Qty: 15 3RF silver sulfadiazine 1 % cream 1 applic TOPICAL DAILY nicotine 14 mg/24 hr patch 24 hour 1 patch transdermal DAILY PRN (Reason: pt discretion) ipratropium-albuterol 0.5 mg-3 mg(2.5 mg base)/3 mL solution for nebulization 3 ml INHALATION Q4H PRN (Reason: breath) ibuprofen 800 mg tablet 800 mg PO Q8H PRN (Reason: Pain) sennosides-docusate sodium [Senexon-S] 8.6-50 mg tablet 2 tab PO DAILY PRN (Reason: therapy) lidocaine-prilocaine 2.5-2.5 % cream 1 applic topical BID modafinil 200 mg tablet 200 mg PO QAM methocarbamol 750 mg tablet 750 mg PO TID Trelegy Ellipta 100-62.5-25 mcg blister with device 1 inh INHALATION DAILY bisoprolol fumarate 5 mg tablet 5 mg PO QAM gabapentin 300 mg capsule 900 mg PO TID buspirone 15 mg tablet 15 mg PO BID buprenorphine-naloxone 8-2 mg tablet, sublingual 1 tab SUBLINGUAL TID losartan 50 mg tablet 50 mg PO QAM cholecalciferol (vitamin D3) [Vitamin D3] 125 mcg (5,000 unit) Tablet 125 mcg PO QAM Discharge Orders: Discharge Order (Routine); Ordered 10/11/24 Ordered By: Jorge Brooks/Other Patient Handouts: Chronic Lung Disease Nutrition Admission Data Admit Date/Time: 09/30/24 22:44 Attending Provider: Giorgio Bowie Admit Provider: Cheyanne Stockton Primary Care Provider: Narciso Castaneda Other Providers: Alvino Medina; Jones De Jesus; [facility] Other Interventions: Discharge Summary Assessment (RN) Last Done: 10/10/24 14:51 Supervising Physician Co-Signing Physician Notes Attending attestation Pt seen and examined in concert with Dr. Barraza. In agreement with the documented findings as noted in the resident documentation with any exceptions or additions as noted here. Resting in bed, reports at subjective respiratory baseline. Reports no palpitations, lightheadedness, abd pain, nausea, bowel changes. Chronic dependent b/l LE swelling which improves with activity. On examination, S1/S2 nl tachycardia no MCG. Decreased breath sounds throughout but without wheeze/rales appreciated. Abd NT/ND BS+ve Sinus tachycardia - TTE as noted. CTA without PE. Pulmonology considering tachycardia 2/2 pulmonary HTN, recommended follow up with outpatient primary pulm (consider [facility] over [facility]) Chronic hypoxic respiratory failure in the setting of COPD, PNA - PNA course com pleted, COPD exacerbation resolved. Continue furosemide therapy and monitor I/O/weight. Continue O2 per protocol, duoneb and inhaler therapy. Hyponatremia - 129 at time of discharge without symptoms in the setting of recent diuresis. Counseling provided re: concerns for underlying cause, need for monitoring following discharge. Check BMP in outpatient to ensure stability with precautions for worsening/changing sx Elevated transaminases - repeat US of the RUQ stable without concern for acute changes. Encourage repeat at outpatient follow up. Hypertension s/p addition of midodrine - doing well off midodrine, d/c on discharge and re-evaluate on follow up Else see resident documentation as noted. Total attending physician time spent with this patient's care on the day of discharge: 45 minutes. Resident Activity Tracking Resident Involvement: Resident Care Provided Care Provided: Adult Hospital Medicine
[2024-10-11 17:19] VITALS: PULSE 98
--- NOTE | 2024-10-15 14:20 | Coding Query ---
CHRONIC KIDNEY DISEASE To promote full compliance with coding requirements relating to patient care, physician participation is requested in all cases of veterans rehabilitation counselor uncertainty. Please assist us with the question(s) below: Coding Question(s): The record reflects the following clinical findings: CKD documented without stage Please specify the known or suspected type by placing an "X" within the parenthesis (x). If other, please document type. Please document Staging if known: ( X) Stage I >90 Kidney damage with normal or elevated GFR. ( ) Stage II 60-89 Kidney damage with mildly decreased kidney function Stage III 30-59 Moderately decreased kidney function ( ) Stage IIIA 45-59 ( ) Stage IIIB 30-44 ( ) Stage III, unspecified ( ) Stage IV 15-29 Severely decreased kidney function ( ) Stage V <15 Renal failure (or dialysis) ( ) End Stage ( ) Unknown Thank you Gayla SILVA
--- NOTE | 2024-10-15 14:21 | Coding Query ---
SEPSIS To promote full compliance with coding requirements relating to patient care, physician participation is requested in all cases of box printing machine operator uncertainty. Please assist us with the question(s) below: In responding to this query, please exercise your independent professional judgement. The fact that a question is asked does not imply that any particular answer is desired or expected. We appreciate your clarification on this issue. Throughout the medical record, you have clearly documented a localized infection and your patient has clinical evidence of a generalized sepsis or severe sepsis. The term urosepsis is a nonspecific entity and is coded as an UTI. If the patient has sepsis, severe sepsis, from an urinary source or some other source, please clarify in your response below. The medical record reflects the following clinical findings: (With dates as appropriate) (Body temperature of >38.3 C(101 F) or <36 C(96.8F), pulse >90/minute, respirations >20/minute, WBC count >12,000 or <4,000, altered mental status, significant edema or positive fluid balance, hyperglycemia without diabetes, hypotension, metabolic acidosis (elev. lactate level, anion gap or reduced blood pH), shock, positive blood culture (enter organism) ____ ()Bacteremia (Nonspecific laboratory finding of bacteria in the blood) Specify Organism () Present on Admission () Not present on admission () Unable to clinically determine () Septicemia (Systemic disease associated with the presence of pathogenic microorganisms in the blood): Specify Organism () Present on Admission () Not present on admission () Unable to clinically determine () Sepsis Specify Organism Specify Associated Condition/Diagnosis (X) Present on Admission () Not present on admission () Unable to clinically determine () Severe Sepsis (Sepsis associated with acute organ dysfunction) Specify Organism Specify Associated Condition/Diagnosis () Present on Admission () Not present on admission () Unable to clinically determine () Septic Shock (Severe sepsis with acute circulatory failure, unexplained by other causes) () Present on Admission () Not present on admission () Unable to clinically determine () Other, patient has: MTDD
--- NOTE | 2024-10-15 14:24 | Coding Query ---
CODING QUERY To promote full compliance with coding requirements relating to patient care, provider participation is requested in all cases of cadmium plater uncertainty. Please assist us with the question(s) below: Coding Question(s): NSTEMI was brought up throughout several notes and then dropped off. Please clarify if NSTEMI was a dx that was treated or not. Physician's Response(s): ( ) NSTEMI POA ( ) NSTEMI Not POA (x ) Other: Not present during admission Thank you Gayla Merrill Principal Diagnosis: "that condition established after study, to be chiefly responsible for occasioning the admission of the patient to the hospital for care." Co-Existing Principal Diagnosis: "when two or more diagnoses equally meet the criteria for principal diagnosis as determined by the circumstances of admission, diagnostic work up, and/or therapy provided, and the Alphabetic Index, Tabular List, or another coding guideline does not provide sequencing direction, any one of the diagnoses may be sequenced first." "When the physician has documented what appears to be a current diagnosis in the body of the record, but has not included the diagnosis in the final diagnostic statement, the physician should be asked whether the diagnosis should be added." (Source Coding [facility] 2 QTR90. p3-4) SHIRA
== END 2024-10-11 17:23 | disposition home health service (06) | DRG 871 ==
LOC: ED 19:48 → SUATTDRO 22:44 → 1E 10-01 02:15 → SUATTDRO 10-01 02:15 → 1E 10-01 02:54 → 2S 10-02 15:22